=== PATIENT | male | born 1955 | race Caucasian/White ===

== ENCOUNTER 2024-03-02 09:08 | Inpatient (IN) | payer MEDICARE, SELFPAY ==
[2024-03-02] VITALS (39 sets, daily range): BP systolic 102–205; BP diastolic 70–140; BMI 39.1; BMI 36.1
[2024-03-02 00:36] LABS: % Basophils 1.2 % (0-2); % Eosinophils 3.4 % (0-6); % Immature Granulocytes 0.3 % (0-0.5); % Lymphocytes 37.5 % (20.5-51.1); % Monocytes 8.4 % (1.7-9.3); % Neutrophils 49.2 % (42.2-75.2); Absolute Basophils 0.1 10^3/uL (0-0.2); Absolute Eosinophils 0.3 10^3/uL (0-0.7); Absolute Lymphocytes 2.9 10^3/uL (1.2-3.4); Absolute Monocytes 0.6 10^3/uL (0.1-0.6); Absolute Neutrophils 3.8 10^3/uL (1.4-6.5); Hematocrit 45.6 % (39.0-52.0); Hemoglobin 15.8 g/dL (13.0-18.0); Mean Corp Hgb Conc. 34.6 g/dL (33.0-37.0); Mean Corpuscular Hgb 31.7 pg (27.0-31.0); Mean Corpuscular Volume 91.4 fL (80.0-94.0); Mean Platelet Volume 9.8 fL (7.4-10.4); Nucleated Red Blood Cells % 0 % (-); Platelet Count 175 10^3/uL (130-400); Red Blood Cell Count 4.99 10^6/uL (4.70-6.10); Red Cell Dist. Width 12.9 % (11.5-14.5); White Blood Cell Count 7.6 10^3/uL (4.8-10.8)
[2024-03-02] MEDS: ADENOCARD 6 MG IV ×2 (00:49)
[2024-03-02 00:51] LABS: ALT (SGPT) 21 U/L (0-50); AST (SGOT) 24 U/L (17-59); Albumin 4.6 g/dl (3.5-5.0); Alkaline Phosphatase 92 U/L (38-126); Blood Urea Nitrogen 20 mg/dl (9-20); Calcium 9.4 mg/dl (8.4-10.2); Carbon Dioxide 24 mmol/L (22-30); Chloride 104 mmol/L (98-107); Glucose 112 mg/dl (70-99); Potassium 4.2 mmol/L (3.5-5.1); Sodium 139 mmol/L (135-145); Total Bilirubin 0.5 mg/dl (0.2-1.3); Total Protein 6.8 g/dl (6.3-8.2); eGFR > 60.00
[2024-03-02] MEDS: CARDIZEM 20 MG IV (00:51)
[2024-03-02 01:02] LABS: Troponin I < 0.012 ng/ml
--- NOTE | 2024-03-02 01:07 | ED.GENMED ---
History of Present Illness
General
Chief Complaint: Cardiac Symptoms
Source: patient and spouse
Exam Limitations: none
Time Seen by Provider: 03/02/24 00:10
Nursing documentation reviewed up to this point in time: agreed with
History of Present Illness
History of Present Illness:
This is a 69-year-old gentleman (he prefers first name Carrington) who has history of hypertension, hyperlipidemia, impaired fasting glucose, low testosterone, BPH who notes intermittent episodes of tachycardia, palpitations that occur sporadically over
the past several years. No definitive insightful nor relieving factors and palpitations occur sporadically, randomly over a number of years and generally resolves within a few minutes to no longer than 30 minutes and generally without associated
symptoms.
Reports undergoing unremarkable Holter monitor and unremarkable echocardiogram last year, ordered by his PCP.
Episodes of tachycardia have become more frequent over the past few months thus he scheduled an initial appointment with cardiology, Dr. Frank which is scheduled for March 30.
Tonight he got up out of bed around 11 PM to go to the bathroom and upon returning to bed he admits to not feeling well, feeling palpitations and feeling somewhat restless. Palpitations persisted and have been accompanied with mild shortness of
breath, very mild intermittent chest pressure which is new for him. Palpitations persisted and seem more pronounced than previous thus he was driven to the ED by his for further evaluation.
Currently denies chest pain or shortness of breath, he denies diaphoresis, denies dizziness nor lightheadedness.
No recent travel, he denies leg pain or swelling.
His daily medications include atenolol, lisinopril, amlodipine, atorvastatin, tamsulosin, testosterone gel.
He admits to rare alcohol use but none recently. No drug use nor decongestant use.
Past History
Past History
ED Past Medical History: HTN, Hypercholesterolemia, NIDDM and Other (Low testosterone, BPH)
ED Past Surgical History: Orthopedic (Cervical disc) and Other (Umbilical hernia repair)
Social History
Tobacco: Non-smoker
Alcohol: Occasional
Drug: None
Personal:
Living: with family
Employment: Employed
Family History
Family History: Other (Noncontributory)
Phy Exam
Physical Exam
Physical Exam:
GENERAL: 69-year-old obese gentleman appears his stated age, bright and alert, pleasant and easily communicative, appears in no acute distress. is accompanying.
EYE: anicteric
NECK: Supple, nontender, no meningismus, no significant adenopathy. No JVD.
ENT: oral mucosa is moist. No rhinorrhea.
CARDIAC: Regular/tachycardic at 160, no murmur.
LUNGS: Clear breath sounds bilaterally, no acute respiratory distress, no wheezes/rales/rhonchi
ABDOMEN: Rotund, soft, nondistended, without focal tenderness, normoactive BS.
NEUROLOGICAL: Alert and oriented x3, no focal neuro deficits.
SKIN: Warm and dry, normal color, skin intact. No rash.
MUSCULOSKELETAL: No C/C/E. peripheral pulses are full and equal b/l. No palpable tenderness.
PSYCH: Normal and appropriate interaction.
Course
Orders/Labs/Results
Orders:
Orders
03/02/24 00:13
Electrocardiogram (*1) Urgent
Reason for Study: Chest Pain
Cardiac Monitoring- Treatment ONCE
EKG- Treatment ONCE
03/02/24 00:21
Adenosine [Adenocard] 12 mg .ROUTE .STK-MED ONE
03/02/24 00:22
Adenosine [Adenocard] 6 mg .ROUTE .STK-MED ONE
03/02/24 00:29
Diltiazem 125 mg/125 ml Nss [Cardizem] 125 mg in 125 ml .ROUTE .STK-MED
Diltiazem HCl [Cardizem] 25 mg .ROUTE .STK-MED ONE
03/02/24 00:30
Complete Blood Count/With Diff Urgent
Comprehensive Metabolic Panel Urgent
TSH Reflex To Free T4 Urgent
Comment: ADDED
Troponin I Urgent
03/02/24 00:34
Add On- LAB Urgent
Tests Added?: TSH w reflex to free T-4
03/02/24 00:35
Adenosine [Adenocard] 6 mg IV NOW STA
Adenosine [Adenocard] 6 mg IV NOW STA
Diltiazem 125 mg/125 ml Nss [Cardizem] 125 mg in 125 ml IV NOW
Initial dose in mg/hr, then titrate:: 10
Titrate to keep:: Heart rate 80-100 bpm
Titrate by mg/hr:: 5 mg/hr
Frequency of titrations (minutes):: 15
Maximum dose in mg/hr:: 15
Diltiazem HCl [Cardizem] 20 mg IV NOW STA
03/02/24 00:36
EKG [Electrocardiogram (*1)] Urgent
Reason for Study: Tachycardia
EKG- Treatment ONCE
03/02/24 01:25
Aspirin Chewable [Low Strength Aspirin] 324 mg PO NOW STA
03/02/24 02:31
Troponin I Urgent
03/02/24 04:29
Troponin I Urgent
Abnormal Lab Results
03/02/24 03/02/24 03/02/24
00:30 02:31 04:29
MCH 31.7 H pg
(27.0-31.0)
Glucose 112 H mg/dl
(70-99)
Troponin I 1.420 H* D ng/ml 3.940 H* D ng/ml
03/02/24 00:30
03/02/24 00:30
Vital Signs
Initial and Last Documented VS:
Initial Vital Signs
Temp Pulse Resp BP Pulse Ox
97.8 F 168 24 154/103 94
03/02/24 00:11 03/02/24 00:11 03/02/24 00:11 03/02/24 00:11 03/02/24 00:11
Last Documented Vital Signs
Temp Pulse Resp BP Pulse Ox
97.8 F 52 15 143/84 92
03/02/24 00:11 03/02/24 06:20 03/02/24 03:15 03/02/24 03:15 03/02/24 03:15
MDM/Problems Addressed
Differential Diagnosis Includes:
Patient presents with palpitations found to be in a tachycardic rhythm regular in nature appears SVT. Other consideration is A-fib with RVR.
Initial EKG shows SVT at [address] elevation inferiorly with depression laterally concerning for STEMI however patient denies chest pain and overall well in appearance.
He is hemodynamically stable, mildly hypertensive.
Urgent heart rate control initiated with an IV bolus of Identicard 6 mg which was successful in temporarily breaking SVT to brief sinus rhythm but then SVT recurred and additional dose of Adenocard with similar results.
With second dose of Adenocard, heart rate briefly slowed and no definitive P waves thus concern for an element of atrial fibrillation.
Patient remains hemodynamically stable thus at this point no indication for urgent/emergent electrical cardioversion and instead plan for IV Cardizem bolus and drip.
After 20 mg of IV Cardizem patient has spontaneously converted to normal sinus rhythm and remains in normal sinus rhythm.
He remains hemodynamically stable and continues to deny chest pain nor shortness of breath.
Repeat EKG shows normal sinus rhythm at 70, first-degree AV block, normal axis, flipped T wave in lead III otherwise unremarkable. Previous ischemic changes have all resolved with normalization of heart rate.
With history of hypertension, hyperlipidemia, borderline diabetes patient is certainly at risk for ACS and concern for rate related ischemia.
Labs are pending including troponin.
Will continue monitor technician.
Chronic conditions affecting care: DM, HTN and Other (Hyperlipidemia)
*Pulse Oximetry
Patient hypoxic: no
*EKG
Interpreted by ED Provider?: Yes
Interpretation: abnormal
Comparison EKG: no comparison EKG present
Rate: tachycardiac
Rhythm: SVT
[place]: normal axis
QRS Pattern: normal QRS
Ischemia: ST elevation (Mild ST elevation in lead III with ST depression in 1 and aVL concerning for STEMI)
*Breaking Machine Operator Interpretation
Rate: tachycardiac
Interpretation: abnormal
Rhythm: SVT
*Critical Care Note
Total Time (30-74mins, 75-104mins- exclusive of procedures): 40
comment:
Critical care statement: A total of 40 minutes of critical care time was provided for this patient. This includes management of unstable vital signs, evaluation of the patient at bedside, reviewing the patient's pertinent medical records, discussion
with consultants, review of old EKGs and review of pertinent medical records. This time with separate from time utilized to perform the aforementioned documented procedures
Update Note
Update Note:
03/02/2024 0632 AM
Patient remains in normal sinus rhythm, remains asymptomatic.
Troponin however continues to trend up initially less than 0.012, 1.420, 3.940. Consistent with non-STEMI.
Case discussed with cardiology who will evaluate at bedside this a.m.
ED Attending Note
-
Portions of this chart may have been created with voice recognition software.� Occasional wrong word or��sound alike� substitutions may have occurred due to the inherent limitations of voice recognition software.
Discharge Plan
Departure
Prescriptions:
No Action
Flomax
1 tab PO DAILY
Norvasc
1 tab PO DAILY
atenolol
1 tab PO DAILY
atorvastatin
1 tab PO HS
lisinopril
1 tab PO DAILY
testosterone gel
Interventions
Interventions:
*Risk Screen - Suicide Last Done: 03/02/24 00:11
*Neglect/Abuse Screening Last Done: 03/02/24 00:11
ED- Fall Risk Assessment Last Done: 03/02/24 00:53
ED- Pulmonary Assessment Last Done: 03/02/24 00:53
ED- Cardiac Assessment Last Done: 03/02/24 00:53
Discharge Date and Time
Print Language: YI
[2024-03-02 01:21] LABS: TSH Reflex To Free T4 1.78 uIU/ml (0.47-4.68)
[2024-03-02] MEDS: LOW STRENGTH ASPIRIN 324 MG PO (01:46)
--- NOTE | 2024-03-02 07:27 | CON.CAR ---
Addendum entered and electronically signed by Suleiman Rehman MD 03/02/24 09:29:
I saw and examined the patient.
The Linen Grader's note was reviewed and I agree with the note.
Comment:
GEN: No distress, awake, Ox3
HEENT: supple, anicteric, mmm
LUNGS: CTA, no wheezes/rales
CV: Reg, S1/S2, 1/6 syst LSB, no gallop
ABD: soft, BS+, NT/ND
EXT: No edema
NEURO: Gross non-focal
SKIN: No rash
Plan:
He has a past medical history of hypertension and hyperlipidemia who presents with palpitations and rapid supraventricular tachycardia. He was given adenosine and then diltiazem and ultimately converted back into spontaneous rhythm. He denies any
overt chest pains. Cardiac troponins have increased and are now at 3.9. He currently is pain-free.
EKG while in SVT suggest possible AVNRT with marked ST abnormalities.
Continue aspirin, add IV heparin. Will check echocardiogram.
I had a lengthy discussion with him and with troponin of 3.9 would recommend proceeding with cardiac catheterization.
Check lipids. Will start metoprolol 25mg po bid.
Original Note:
Consultation
Consultation Request
Date/Time Consultation Requested: 03/02/24
Date/Time Consultation Performed: 03/02/24
Requesting Provider: Dr. Capellan in the ER
Performing Provider: Dr. Rehman
Reason for Consultation: Palpitations, abnormal ECG, elevated Troponin
Medical History
-
History of Present Illness:
Patient came to [facility] with palpitations and cardiology is consulted for SVT and elevated Troponin. Patient reports palpitations on and off for more than a year. Palpitations generally once a month and last for a few minutes. No known provocative or
palliative factors. Echo and Holter monitor 12/2022 reviewed above. Patient got up from bed to urinate last night and felt the palpitations feeling in his chest, but palpitations were more intense and did not resolve in a few minutes so patient came
to [facility] and initial ECG reviewed by me showed nonspecific ST changes, patient also in SVT with HR of 164 bpm. Patient was given adenosine 6 mg IV x1 without change and then given a second dose of adenosine 6 mg IV x1 with slowing of HR and
reportedly no underlying P waves and HR increased as adenosine faded. Patient then given Cardizem 20 mg IV x1 and patient spontaneously converted to SR. No chest pain. Initial Troponin was undetectable and then up to 1.42 and then 3.94. Patient with
fatigue and SEQUEIRA recently, but no chest pain.
PMH:
HTN
Hyperlipidemia
Past Medical History
Past Medical History: Other (in HPI)
Past Surgical History: Orthopedic (cervical spine fusion) and Other (hernia repair)
Social History
Tobacco: Non-Smoker
Alcohol: Occasional
Drug: None
Personal:
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
Family History
Family History: Diabetes and Hypertension
Allergies / Home Medications
Allergy/AdvReac Type Severity Reaction Status Date / Time
No Known Allergies Allergy Verified 03/02/24 00:13
�Medication �Instructions �Recorded �Confirmed �Type
Flomax 1 tab PO DAILY 03/02/24 History
Norvasc 1 tab PO DAILY 03/02/24 History
atenolol 1 tab PO DAILY 03/02/24 History
atorvastatin 1 tab PO HS 03/02/24 History
lisinopril 1 tab PO DAILY 03/02/24 History
testosterone 03/02/24 History
Review of Systems
-
History Source: Patient and Family ( by phone)
All other systems: Negative unless noted
Physical Exam
Vital Signs
Temp Pulse Resp BP Pulse Ox
97.8 F 62 16 153/89 93
03/02/24 00:11 03/02/24 07:00 03/02/24 07:00 03/02/24 07:00 03/02/24 03:30
GEN: NAD. AAOx3
HEENT: EOMI, MMM
LUNGS: CTA B/L, no wheezes or rales
CV: Reg, S1/S2, no murmur
ABD: soft, BS+, NT, ND
EXT: No clubbing, cyanosis, lesions or edema B/L
NEURO: Gross non-focal
SKIN: Warm, dry and pink. No rash
Lab Results
03/02/24 00:30
03/02/24 00:30
Troponin I 3.940 ng/ml H* D 03/02/24 04:29
Impression / Plan
-
PCP: Dr. Cecille aCnales at [facility]
Cardiology: scheduled to see Dr. Frank as a new patient 03/31/24
Impression:
Palpitations
SVT, possibly Afib with RVR
NSTEMI, Troponin 3.9 and trending
Abnormal ECG
HTN
Hyperlipidemia
BPH
Hyperglycemia
Holter monitor 12/25/22: Less than 1% burden PACs/PVCs, no arrhythmia
Echo 12/25/22: EF 55%, no significant valve disease
Plan:
-Patient came to [facility] with palpitations and cardiology is consulted for SVT and elevated Troponin. Patient reports palpitations on and off for more than a year. Palpitations generally once a month and last for a few minutes. No known provocative or
palliative factors. Echo and Holter monitor 12/2022 reviewed above. Patient got up from bed to urinate last night and felt the palpitations feeling in his chest, but palpitations were more intense and did not resolve in a few minutes so patient came
to [facility] and initial ECG reviewed by me showed nonspecific ST changes, patient also in SVT with HR of 164 bpm. Patient was given adenosine 6 mg IV x1 without change and then given a second dose of adenosine 6 mg IV x1 with slowing of HR and
reportedly no underlying P waves and HR increased as adenosine faded. Patient then given Cardizem 20 mg IV x1 and patient spontaneously converted to SR. No chest pain. Initial Troponin was undetectable and then up to 1.42 and then 3.94. Patient with
fatigue and SEQUEIRA recently, but no chest pain.
-Chest pain free. Troponin up to 3.94 and will manage as a NSTEMI for now.
-Start Heparin gtt
-ASA 324 mg given in ER earlier this morning
-Serial Troponin
-Check CVE
-Increase outpatient dose of atorvastatin to 40 mg daily
-Changed outpatient dose of atenolol 25 mg daily to Lopressor 25 mg BID
-Check HgbA1c, no h/o DM
-SVT likely Afib with RVR. Spontaneously converted tp SR after adenosine 6 mg IV x2 and then Cardizem 20 mg IV x1. Remains in SR on tele review by me. Cont Lopressor. Reviewed future options for rate and rhythm control.
-Reviewed need for OAC given CHADS Vasc of 2 (might be 3 if HgbA1c comes back high). Heparin gtt for now and then will check on costs of Eliquis vs Xarelto.
--- NOTE | 2024-03-02 08:47 | W.CHA2DS2VAS ---
[id number] Score
Score
Age in Years (65=0, 65-74=1, >/=75=2): 65-74
Sex (Female=+1): Male
Congestive Heart Failure History (Yes=+1): No
Hypertension History (Yes=+1): Yes
Stroke/TIA/Thromboembolism History (Yes=+2): No
Vascular Disease History (Yes=+1): No
Diabetes Mellitus (Yes=+1): No
Score >/=2 is otherwise an anticoagulation candidate: 2
[2024-03-02 08:53] LABS: APTT 29.6 Sec (23.4-35.0)
[2024-03-02 09:18] LABS: HDL Cholesterol 46 mg/dl; LDL Cholesterol, Calculated 71 mg/dl; Total Cholesterol 178 mg/dl (50-199); Triglyceride 305 mg/dl (10-149); Very Low Density Lipoprotein 61 mg/dl (0-30)
[2024-03-02] MEDS: HEPARIN 25000 UNITS/250 ML IV ×2 (09:33→22:12)
[2024-03-02 10:23] LABS: Glycohemoglobin (HgbA1c) 5.9 % (4.0-5.6)
--- NOTE | 2024-03-02 11:14 | CM ---
Reviewed chart. Met with Mr. Dang to review discharge plans. He states prior to admission he resides with his spouse and 91 year old mother in law in a two story home with two steps to enter. He states his [id number] has memory problems. He
states he has a full flight of steps to get to bedroom/full bathroom. He states he has a powder room on the first floor. He states prior to admission he was independent with ambulation and adls. He states he does not have any DME in the home. He
states he has a prescription plan and uses [facility]. Medical work-up in progress. The discharge plan is to return home with his spouse and mother-in -law when medically stable.
[2024-03-02] MEDS: ZESTRIL 20 MG PO (11:36)
[2024-03-02] MEDS: NORVASC 2.5 MG PO (11:37)
[2024-03-02] MEDS: LOPRESSOR 25 MG PO ×2 (11:37→19:37)
[2024-03-02] MEDS: TYLENOL 650 MG PO ×2 (13:15→22:11)
[2024-03-02] MEDS: APRESOLINE 5 MG IV (13:16)
--- NOTE | 2024-03-02 13:35 | PTCARENOTE ---
Rec'd pt from ED. Pt in NSR with elevated BP, AAO*3, and VSS. First time order of lisinipril, norvasc, and metoprolol given. Pt denies any pain or discomfort. Rec'd pt with heparin gtt infusing at 1500 units per hour. Pt maintained pt as NPO
for upcoming cath procedure. Pt educated and verbalized understanding of care plan.
At 1305 pt reported headache rating pain at a 3/10 with elevated bp at 172/105. CAPSULE MACHINE OPERATOR Karen Darden notified. Order Rec'd for 5mg of hydralazine IV. Pt resting in bed with call fernandez in reach. Plan of care ongoing.
--- NOTE | 2024-03-02 14:26 | W.PN.UPDATE ---
Update Note
Progress Note Update
Updated patient and in the room. Reviewed echo and Troponin results. Gave patient's a paper copy of echo report with Troponin levels written down as well. Patient is agreeable to cardiac cath today. Remains pain free on Heparin gtt.
Received aspirin in the ER. Patient missed his usual doses of amlodipine 2.5 mg daily, lisinopril 20 mg daily and atenolol 25 mg daily this morning because he was in the ER. Changed atenolol to Lopressor 25 mg BID with a NOW dose and also ordered
NOW doses of his other meds. BP remained high so hydralazine 5 mg IV x1 given. If BP remains high would increase amlodipine. HR 52.
--- NOTE | 2024-03-02 16:32 | CONSULT.CT ---
Addendum entered and electronically signed by Ene Jara PA-C 03/03/24 06:58:
Assessment:
Now with newly diagnosed:
SVT with converstion to SR
NSTEMI (peak Troponin of 5.12)
LM MV CAD
Original Note:
Consultation
-
Date/Time Consultation Requested: 03/02/24
Date/Time Consultation Performed: 03/02/24 1630
Requesting Provider: Dr. Christina Valle MD.
Performing Provider: Ene Jara PA-C
Reason for Consultation: Evaluation for coronary artery revascularization
Patient History
Physicians
Family Physician: Dr. Cecille Canales MD. [facility]
Outpatient Airport Screener: Dr. Tee Frank MD. (new patient, apt. for 03/31/24)
Inpatient Airport Screener: [facility] Cardiology, Maik Rehman MD.
History of Present Illness
Patient is an extremely pleasant 69-year-old male with a PMH significant for HTN, HLD, and palpitations/arrhythmias. Patient has been experiencing intermittent palpitations and lightheadedness for roughly the past year. Patient states
that they would always self terminate or improve with rest.
Last evening the patient began experiencing palpitations that were more severe compared to previous ones and continued to progress despite rest. Given the severity of the symptoms he sought medical attention at [facility]'s emergency
department. Further workup in the emergency department with EKG revealed SVT (164) with inferior wall ST segment elevation. Lab work ruled the patient in for a non-STEMI with peak troponins of 5.12. Cardiology was consulted.
Patient was given multiple injections of adenosine 6 mg IV, as well as Cardizem 20 mg IV x 1. Patient successfully converted to sinus rhythm. He was admitted for further workup, and given his NSTEMI cardiology proceeded with further workup via
catheterization.
Subsequent cardiac catheterization revealed left main multivessel CAD. Please see Dr. Valle's dictation for complete details summary is as follows: RCA shows a chronic BREAD WRAPPER with L -> collaterals. There is distal left main disease affecting the
ostial left circumflex, ramus intermedius, and LAD.
CT surgery was consulted for coronary artery revascularization.
TTE: 03/02/24 Sherie
EF: 60-65%
MV: normal
AV: normal
TV: normal
PV: trace ND
LVSD: 39
LVDD: 57
PAP's: Unable to determine
Cardiac Cath: 03/02/24 Valle:
LM: 50% distal stenosis
LAD: ostial/prox 85%
RI: 50% ostial
LCx: ostial 80%
RCA: 100% BREAD WRAPPER with L -> R collaterals
Past Medical History
Past Medical History: Other
HTN/HLD
History of palpitations/arrhythmias
BPH
History of uro-lift 2021
History of cervical spine fusion 2003
History of umbilical hernia repair 1999
Past Surgical History
Past Surgical History: Other
Uro-lift 2021 Dr. Burks
Cervical spine fusion 2003
Umbilical hernia repair 1999
Dental History
Noncontributory
Family History
Mother: at Age (96) and Cause of (Complications with CHF)
Father: at Age (84) and Cause of (Complications with hypertension and kidney disease)
Social History
Alcohol: None (2-7d/wk)
Drug: None
Tobacco: Non-Smoker
Personal:
Living: With Spouse (Has 2 children)
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
Allergies
Allergy/AdvReac Type Severity Reaction Status Date / Time
No Known Allergies Allergy Verified 03/02/24 00:13
Home Medications
�Medication �Instructions �Recorded �Confirmed �Type
amlodipine 2.5 mg tablet 2.5 mg PO DAILY 03/02/24 03/02/24 History
atenolol 25 mg tablet 25 mg PO DAILY 03/02/24 03/02/24 History
atorvastatin 20 mg tablet 20 mg PO HS 03/02/24 03/02/24 History
lisinopril 20 mg tablet 20 mg PO DAILY 03/02/24 03/02/24 History
tamsulosin 0.4 mg capsule 0.4 mg PO HS 03/02/24 03/02/24 History
testosterone 2 pump topical DAILY 03/02/24 03/02/24 History
Review of Systems
-
History Source: Patient
General: Denies Fever, Weight Gain, Weight Loss, Fatigue or Night Sweats
HEENT: Denies Visual Changes, Dysphagia, Hoarseness or Sore Throat
Respiratory: Denies SOB, SEQUEIRA, Cough, Asthma or PND
Cardiac: Reports Palpitations; Denies Chest Pain, CAD, Known Vascular Disease, Nausea, Vomiting, Diaphoresis or Edema
Abdomen/GI: Denies Abdominal Pain, Reflux, Indigestion, Nausea, Vomiting, BRBPR or Ulcers
: Denies Dysuria, Frequency, Incontinence or Hematuria
Musculoskeletal: Denies Myalgias, Arthralgias, Joint Pain or Edema
Skin: Denies Itching or Rash
Neurological: Reports Dizzy; Denies CVA, TIA, Headaches, Weakness or Seizures
Vascular: Denies Claudication
Physical Exam
Vital Signs
Temp 97.9 F 03/02/24 10:36
Temp route: Oral 03/02/24 10:36
Pulse 61 03/02/24 14:30
Rhythm: Normal sinus rhythm 03/02/24 12:36
Resp Rate 20 03/02/24 10:36
Blood pressure 175/92 03/02/24 13:39
Blood pressure extremity used: Left upper arm 03/02/24 10:36
Position: Sitting 03/02/24 10:36
MAP (cuff-Cheo Monitor) 117 03/02/24 13:39
SaO2 97 03/02/24 12:50
Oxygen Mode of Delivery Room air 03/02/24 12:50
Acceptable pain level during hospitalization? 0 03/02/24 00:11
Can the patient verbally communicate their pain? Yes 03/02/24 14:15
Pain scale ratin 03/02/24 14:15
Actual Weight 244 lb 7.882 oz 03/02/24 10:39
Body Mass Index (BMI) 36.1 03/02/24 10:39
Labs
03/02/24 00:30
03/02/24 00:30
APTT 29.6 Sec (23.4-35.0) 03/02/24 08:21
Hemoglobin A1c 5.9 % (4.0-5.6) H 03/02/24 00:30
Troponin I 3.690 ng/ml H* D 03/02/24 15:19
Diagnostic Studies
TTE: 03/02/24 Sherie
EF: 60-65%
MV: normal
AV: normal
TV: normal
PV: trace ND
LVSD: 39
LVDD: 57
PAP's: Unable to determine
EKG 03/02/24:
SVT, ACUTE MA/NSTEMI (164)
EKG 03/02/24:
SR 1AVB (69)
Cardiac Cath: 03/02/24 Valle:
LM: 50% distal stenosis
LAD: ostial/prox 85%
RI: 50% ostial
LCx: ostial 80%
RCA: 100% BREAD WRAPPER with L -> R collaterals
Exam
General: Well Developed, Well Nourished and No Apparent Distress
HEENT: Normocephalic, Moist Mucous Membranes, Atraumatic, PERRLA and EOMI
Neck: Trachea Midline; Negative Carotid Bruit
Respiratory: Clear; Negative Wheezes, Crackles, Rhonchi or Accessory Muscle Use
Cardiac: S1/S2 and Regular Rhythm; Negative Murmur, Rub or Gallop
GI: Soft, Non Tender, Non Distended and Normal Bowel Sounds
Rectal: Deferred by Provider
Skin: Warm and Dry; Negative Rash
Neuro: AO x 3, No Motor Deficits and CN X-XII Intact
Extremities: Negative Upper Level Edema, Lower Level Edema, Upper Level Cyanosis, Lower Level Cyanosis, Upper Level Clubbing or Lower Level Clubbing
Psych: Calm
Assessment / Plan
-
Assessment:
69-year-old male with PMH of:
HTN/HLD
History of palpitations/arrhythmias
BPH
History of uro-lift 2021
History of cervical spine fusion 2003
History of umbilical hernia repair 1999
Plan:
Patient's case to be discussed with attending physician.
Routine cardiothoracic surgery preoperative workup will be initiated.
Continue primary management per cardiology.
Continue heparin drip per cardiology.
Further timing for surgical intervention will be decided after attending physicians full review.
--- NOTE | 2024-03-02 16:34 | PTCARENOTE ---
Rec'd pt back from freezer laboratory technician with R radial site and R femoral site. R radial site with external pressure device. Scant drainage with pulses palpable at right radial site. Right femoral artery with CDI with weak but palpable pedal pulses. Pt
instructed on strict bed rest and limb restrictions. Pt resting with call fernandez in reach. at bedside.
--- NOTE | 2024-03-02 16:36 | ITS.CL.CATH ---
Director Of Market Analysis - Catheterization
Cardiac Catheterization
Procedure Report:
LEFT HEART CATHETERIZATION
Date of Procedure: March 02, 2024
Referring: Maik Rehman
PROCEDURES:
1. Left heart catheterization, coronary angiogram.
2. Ultrasound-guided access
INDICATION: NSTEMI
ACCESS: Right radial artery, 6 Occitan sheath, under ultrasound guidance. Given presence of a bovine arch, this access was aborted and 6 Occitan right common femoral arterial access was obtained under ultrasound guidance using a micropuncture kit.
HEMODYNAMICS : (mmHg)
AO (s/d) : 112/68
LV (s/d) : 122/12
LVEDP : 21
CORONARY FINDINGS
DOMINANCE: Right
LEFT MAIN: The left main artery is a large-caliber vessel which gives rise to the left anterior descending artery, the ramus intermedius artery and the left circumflex artery. There is at least 50% calcified distal left main stenosis extending into
all 3 of the branch vessels including ostial LAD, ostial ramus intermedius branch and ostial left circumflex artery (Fish 1, 1, 1)
LEFT ANTERIOR DESCENDING: The left anterior descending artery is a large-caliber vessel which gives rise to 2 small to medium caliber diagonal branches as it courses to the anterior interventricular groove and wraps around the apex. There is
heavily calcified ostial to proximal up to 85% stenosis. Robust collaterals to the RCA also noted.
RAMUS INTERMEDIUS: The ramus intermedius artery is a small to medium caliber branching vessel with eccentric 50% ostial stenosis extending into the proximal portion of the upper branch.
CIRCUMFLEX: The left circumflex artery is a medium to large caliber vessel which gives rise to 1 large caliber branching obtuse marginal branch. There is a eccentric, heavily calcified 80% ostial stenosis.
RIGHT CORONARY ARTERY: The right coronary artery is heavily calcified with 100% flush ostial RCA occlusion with robust [id number] collaterals filling the distal vessel.
SEDATION: 54 minutes of procedural sedation was utilized. An independent emergency medical tech was present to assist with and help manage the patient's level of consciousness and physiologic status.
RADIATION SUMMARY: Fluoro Time (min): 5.5, Dose (mGy): 722.14, DAP (Gy.cm2) : 54.6
Closure Device:
1. Vascular band over right radial artery, 12 cc of air.
2. 6 Occitan Angio-Seal over the right common femoral artery with successful hemostasis.
CONCLUSIONS
1. Heavily calcified coronary arteries with significant multivessel coronary artery disease.
2. Elevated LVEDP.
RECOMMENDATIONS
1. CT surgery consult for consideration of coronary artery bypass grafting with grafts to LAD, left circumflex/OM, possibly ramus intermedius and distal RCA/RPDA.
2. Continue medical therapy for acute coronary syndrome.
3. Trend EKGs and troponins.
4. Check echocardiogram to assess biventricular function and rule out any significant valvular abnormalities.
5. Aggressive management of cardiovascular risk factors.
6. Eventual referral for outpatient cardiac rehab.
Copy to: Maik Rehman
Christina Valle MD, FACC, [facility]
[2024-03-02] MEDS: LIPITOR 80 MG PO (17:38)
--- NOTE | 2024-03-02 21:49 | PTCARENOTE ---
Pt rec'd at shift change awake,alert with spouse at bedside. Pt's only complaint is of neck pain (recently at chiropractor for stiff neck). heat pack applied per pt request. Pt stated he didn't want Tylenol at that time. Right radial band removed
cleansed with saline, 2x2 drsg applied. Pt aware of radial restrictions. Right femoral DDI, no active bleeding or hematoma present.
[2024-03-02] MEDS: FLOMAX 0.4 MG PO (22:11)
--- NOTE | 2024-03-02 23:18 | PTCARENOTE ---
Pt remains sinus but heart rates in high 30's when asleep.
[2024-03-03] VITALS (14 sets, daily range): BP systolic 104–194; BP diastolic 70–118; BMI 35.9
[2024-03-03] MEDS: APRESOLINE 5 MG IV ×2 (04:45→15:29)
--- NOTE | 2024-03-03 05:02 | PTCARENOTE ---
Pt given Hydralazine for elevated b/p this morning. Pt remains sinus alyson dropping as low as 36 when asleep 50's when awake,
[2024-03-03 05:27] LABS: Hematocrit 45.7 % (39.0-52.0); Hemoglobin 15.8 g/dL (13.0-18.0); Mean Corp Hgb Conc. 34.6 g/dL (33.0-37.0); Mean Corpuscular Hgb 32.2 pg (27.0-31.0); Mean Corpuscular Volume 93.3 fL (80.0-94.0); Mean Platelet Volume 10.1 fL (7.4-10.4); Platelet Count 149 10^3/uL (130-400); White Blood Cell Count 6.6 10^3/uL (4.8-10.8)
[2024-03-03 05:37] LABS: PT 13.2 Sec (11.4-14.6)
[2024-03-03 05:38] LABS: APTT 76.9 Sec (23.4-35.0)
[2024-03-03 05:49] LABS: Blood Urea Nitrogen 18 mg/dl (9-20); Calcium 9.3 mg/dl (8.4-10.2); Carbon Dioxide 21 mmol/L (22-30); Chloride 103 mmol/L (98-107); Estimated Creatinine Clearance 107 ml/min; Glucose 108 mg/dl (70-99); Magnesium 2.2 mg/dl (1.6-2.3); Potassium 4.2 mmol/L (3.5-5.1); Sodium 138 mmol/L (135-145); eGFR > 60.00
--- NOTE | 2024-03-03 06:32 | W.PN.CARDCBS ---
Today's Communication / Plan
-
CABG eval
Optimize medical therapy
Impression / Plan
-
PCP: Dr. Cecille Canales at [facility]
Cardiology: scheduled to see Stacia Monika as a new patient 03/31/24
Impression:
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
PSVT, AVNRT status post adenosine
HTN
Hyperlipidemia
BPH
prediabetes, HBA1C 5.9%
Holter monitor 12/25/22: Less than 1% burden PACs/PVCs, no arrhythmia
Echo 12/25/22: EF 55%, no significant valve disease
Echo 03/02/2024: Technically difficult echo contrast utilized. Normal LV size and systolic function with no regional wall motion abnormalities and mild LVH. LV ejection fraction 60-65% with grade 1 diastolic dysfunction. Trileaflet, mildly
sclerotic aortic valve without stenosis or AI. No TR. No MR. No pericardial effusion. Mildly dilated aortic root at the sinus of Valsalva measuring 3.8 cm
Left heart catheterization 03/02/2024:
LVEDP : 21
CORONARY FINDINGS
DOMINANCE: Right
LEFT MAIN: The left main artery is a large-caliber vessel which gives rise to the left anterior descending artery, the ramus intermedius artery and the left circumflex artery. There is at least 50% calcified distal left main stenosis extending into
all 3 of the branch vessels including ostial LAD, ostial ramus intermedius branch and ostial left circumflex artery (Fish 1, 1, 1)
LEFT ANTERIOR DESCENDING: The left anterior descending artery is a large-caliber vessel which gives rise to 2 small to medium caliber diagonal branches as it courses to the anterior interventricular groove and wraps around the apex. There is
heavily calcified ostial to proximal up to 85% stenosis. Robust collaterals to the RCA also noted.
RAMUS INTERMEDIUS: The ramus intermedius artery is a small to medium caliber branching vessel with eccentric 50% ostial stenosis extending into the proximal portion of the upper branch.
CIRCUMFLEX: The left circumflex artery is a medium to large caliber vessel which gives rise to 1 large caliber branching obtuse marginal branch. There is a eccentric, heavily calcified 80% ostial stenosis.
RIGHT CORONARY ARTERY: The right coronary artery is heavily calcified with 100% flush ostial RCA occlusion with robust [id number] collaterals filling the distal vessel.
Plan:
Presented with palpitations and rapid supraventricular tachycardia status post adenosine with conversion to sinus rhythm, possible AVNRT with marked ST-T wave abnormalities
-Maintaining sinus rhythm
-Continue telemetry monitoring. Continue Lopressor 25 mg twice daily
-TSH wnl
-2D echocardiogram with normal biventricular size and systolic function and mild LVH. No hemodynamically significant valve pathology or pericardial effusion.
Non-STEMI with peak troponin 5.12 found to have multivessel coronary artery disease by cardiac catheterization 03/02/2024
-Chest pain free.
-EKG 03/02/24 after conversion to sinus rhythm: Sinus rhythm with first-degree AV block with resolved ST-T wave changes.
-Continue IV Heparin gtt
-Continue aspirin, beta-alexia and lisinopril
-Uptitrate beta-alexia as able but may be limited due to bradycardia
-Continue high intensity statin continue high intensity statin. On admission patient had been on atorvastatin 20 mg daily. Lipid profile 03/02/2024: Triglycerides 305, total cholesterol 178, LDL 71, HDL 46.
-Eventual addition of SGL T2 inhibitor prior to discharge
-CT surgery consulted awaiting evaluation: Discuss with surgery preoperative initiation of amiodarone for A-fib prophylaxis in preparation for CABG
Uncontrolled hypertension
-Increase amlodipine to 5 mg daily.
-Goal normotension
Prediabetes�goal normoglycemia
-Eventual addition of SGLT2 inhibitor prior to discharge
Progress Note - Shake Backboard Notcher
Subjective
Date of Service: March 03, 2024
Seen and examined. Patient has no chest pain or pressure. No shortness of breath. No palpitations. No headaches. Findings of cardiac catheterization, echocardiogram and presentation reviewed with patient and all questions answered. Awaiting CT
surgery evaluation
Objective
Labs:
03/03/24 04:38
03/03/24 04:38
Labs
Hgb 15.8 g/dL (13.0-18.0) 03/03/24 04:38
Hct 45.7 % (39.0-52.0) 03/03/24 04:38
Plt Count 149 10^3/uL (130-400) 03/03/24 04:38
PT 13.2 Sec (11.4-14.6) 03/03/24 04:38
PT Cancelled 03/03/24 04:38
INR 1.00 03/03/24 04:38
INR Cancelled 03/03/24 04:38
APTT 76.9 Sec (23.4-35.0) H 03/03/24 04:38
Sodium 138 mmol/L (135-145) 03/03/24 04:38
Potassium 4.2 mmol/L (3.5-5.1) 03/03/24 04:38
BUN 18 mg/dl (9-20) 03/03/24 04:38
Creatinine 0.8 mg/dL (0.7-1.3) 03/03/24 04:38
Glucose 108 mg/dl (70-99) H 03/03/24 04:38
Troponins
03/02/24 03/02/24 03/02/24
00:30 02:31 04:29
Troponin I < 0.012 1.420 H* D 3.940 H* D
03/02/24 03/02/24
11:50 15:19
Troponin I 5.120 H* D 3.690 H* D
Vital Signs and I&O:
Vital Signs
Temp Pulse Resp BP Pulse Ox
98.6 F 56 20 194/95 95
03/03/24 04:28 03/03/24 05:00 03/03/24 04:28 03/03/24 04:45 03/03/24 04:28
Vital Signs
Temp Pulse Resp BP Pulse Ox
98.6 F 56 20 194/95 95
03/03/24 04:28 03/03/24 05:00 03/03/24 04:28 03/03/24 04:45 03/03/24 04:28
Intake & Output
02/29/24 03/01/24 03/02/24 03/03/24
06:59 06:59 06:59 06:59
Intake Total 980 / 980
Balance 980 / 980
Physical Exam
Physical Exam
General: No acute distress, AAOX3
Neck: Negative JVD
Heart: Regular, positive S1/S2, No murmur
Lungs: CTA b/l, negative wheezes/rales/rhonchi
Abd: Positive BS, NT/ND, neg rebound/rigidity/guarding
Ext: No edema. Radial cath site intact
Neuro: nonfocal
[2024-03-03] MEDS: LOPRESSOR 25 MG PO ×2 (07:58→19:28)
[2024-03-03] MEDS: NORVASC 5 MG PO ×2 (07:58→19:28)
[2024-03-03] MEDS: LOW STRENGTH ASPIRIN 81 MG PO (07:58)
--- NOTE | 2024-03-03 09:03 | PTCARENOTE ---
Received patient this morning resting in bed, heparin infusing at 1500 units/hr. Patient offers no complaints, dressings dry right wrist and right groin. Patient sent for CT of the chest and carotid ultrasound. BP remains elevated, morning meds
given prior to transferring for testing.
[2024-03-03 10:17] LABS: APTT 87.1 Sec (23.4-35.0)
--- NOTE | 2024-03-03 12:25 | CM ---
Reviewed chart. Met with Mr.. Dang to review discharge plans. He states he us feeling okay. He is waiting to hear about the timing of surgery. Prior to admission he resides with his spouse and 91 year old [id number] in a two story home with
two steps to enter. He has a full flight of steps to get to bedroom /full bathroom. He has a powder room on the first floor. Prior to admission he was independent with ambulation and adls. He does not have any DME in the home. He has a
prescription plan and uses [facility]. Medical work-up in progress. The discharge plan is to return home with his spouse and [id number] when medically stable.
[2024-03-03] MEDS: MIRALAX 17 GRAMS PO (12:36)
--- NOTE | 2024-03-03 13:25 | W.PN.UPDATE ---
Update Note
Progress Note Update
notified by nursing patient had brief episode of SVT while 'dozing.' appeared asymptomatic. for now continue lopressor 25mg BID. was noted to have some bradycardia into 30s overnight. if with recurrent SVT episodes, could consider starting
amiodarone as will be on postoperatively.
--- NOTE | 2024-03-03 13:28 | PTCARENOTE ---
Patient had a burst of SVT with HR in the 150's while sitting in the recliner, HR now sinus in the 60's. Patient was asymptomatic, stated he was falling asleep. Niraj SOTO notified, will continue to monitor.
[2024-03-03] MEDS: HEPARIN 25000 UNITS/250 ML IV (15:08)
--- NOTE | 2024-03-03 15:19 | W.PN.UPDATE ---
Update Note
Progress Note Update
Procedure Type:�Isolated CABG
PERIOPERATIVE OUTCOME ESTIMATE %
Operative Mortality 1.31%
Morbidity & Mortality 6.18%
Stroke 0.579%
Renal Failure 0.774%
Reoperation 2.06%
Prolonged Ventilation 3.49%
Deep Sternal Wound Infection 0.164%
Long Hospital Stay (>14 days) 3.48%
Short Hospital Stay (<6 days)* 45.2%
*higher values reflect a better outcome
Clinical Summary
Planned Surgery: Isolated CABG, Urgent, First cardiovascular surgery
Demographics: 69 year old, White, male, 110kg, 175cm, BMI: 35.9 kg/m�
Insurance/Payor: Medicare
Lab Values: Creatinine: 0.8 mg/dL, Hematocrit: 45.7%, WBC Count: 6.6 10�/�L, Platelet Count: 104453 cells/�L
Substance Abuse: Never smoker
Risk Factors / Comorbidities: Hypertension
Cardiac Status: Ejection Fraction = 60%
Coronary Artery Disease: 3 vessels diseased, Left Main Stenosis >=50%, Proximal LAD Stenosis >=70%, No coronary symptoms
[2024-03-03] MEDS: PACERONE 200 MG PO ×2 (15:25→22:17)
--- NOTE | 2024-03-03 15:30 | W.PN.UPDATE ---
Update Note
Progress Note Update
after drinking a cup of coffee now with more frequent self limiting episodes of SVT in 160s. amiodarone 200mg TID ordered with 1st dose now. BPs elevated, increased norvasc to 5mg BID. continue IV hydralazine PRN. d/w patient and at bedside.
d/w nursing. d/w CT surgery
[2024-03-03] MEDS: FLUSH (NSS) 1 FLUSH IV (15:31)
[2024-03-03] MEDS: LIPITOR 80 MG PO (19:05)
[2024-03-03] MEDS: CARDIZEM 125 IV (19:50)
--- NOTE | 2024-03-03 19:55 | PTCARENOTE ---
Patient continues to have long runs of SVT, given PO amio as ordered at 1600 but still with high rates and BP elevated. Patient frustrated feeling the high rates and not feeling he can tolerate it all night. EKG done, Dr. Jolley notified and came
to see the patient. Medications adjusted by Dr. Becker, patient given dose of PO lopressor. at the bedside now visiting.
--- NOTE | 2024-03-03 21:12 | PTCARENOTE ---
Rec'd pt at change of shift in recliner chair with ht rate elevated to 170 SVT. B/P 104/72. pt and spouse concerned over pts ht rate. O2 at 3 lit n/c placed.pt back to bed. Denies cp but reports feeling a little 'woozy' and fluttering in his chest.
Dr Castelan updated about pts complaints and rhythm. Cardizem gtt started at 5 mg hour with good results over the next hour. B/p remains stable. pt now more sinus in 80's. and son at bedside at this time.
[2024-03-03] MEDS: FLOMAX 0.4 MG PO (22:17)
--- NOTE | 2024-03-03 22:38 | PTCARENOTE ---
Pt remains in sinus 60. Dr Castelan updated on pts rhythm and b/p. Ok given to give Amio due at 2200 but hold mn dose of Lopressor. Son remains at bedside.
[2024-03-03] MEDS: LOPRESSOR PO (23:30)
[2024-03-04] VITALS (10 sets, daily range): BP systolic 104–148; BP diastolic 65–90; BMI 35.2
--- NOTE | 2024-03-04 05:20 | PTCARENOTE ---
Pt has remained in sinus rhythm since 2048. b/p stable. Cardizem gtt continued at 5 mg/hr along with heparin at 1500 units/hr.
OOB at present on R/A for am care.
[2024-03-04 05:29] LABS: Hematocrit 43.1 % (39.0-52.0); Hemoglobin 15.3 g/dL (13.0-18.0); Mean Corp Hgb Conc. 35.5 g/dL (33.0-37.0); Mean Corpuscular Hgb 31.8 pg (27.0-31.0); Mean Corpuscular Volume 89.6 fL (80.0-94.0); Mean Platelet Volume 9.8 fL (7.4-10.4); Platelet Count 162 10^3/uL (130-400); Red Blood Cell Count 4.81 10^6/uL (4.70-6.10); Red Cell Dist. Width 13.2 % (11.5-14.5); White Blood Cell Count 7.2 10^3/uL (4.8-10.8)
[2024-03-04 05:48] LABS: APTT 117.8 Sec (23.4-35.0)
[2024-03-04 05:56] LABS: ALT (SGPT) 20 U/L (0-50); AST (SGOT) 27 U/L (17-59); Albumin 4.4 g/dl (3.5-5.0); Alkaline Phosphatase 58 U/L (38-126); Blood Urea Nitrogen 20 mg/dl (9-20); Calcium 9.7 mg/dl (8.4-10.2); Carbon Dioxide 25 mmol/L (22-30); Chloride 104 mmol/L (98-107); Estimated Creatinine Clearance 85 ml/min; Glucose 120 mg/dl (70-99); Magnesium 2.3 mg/dl (1.6-2.3); Potassium 4.3 mmol/L (3.5-5.1); Sodium 138 mmol/L (135-145); Total Bilirubin 0.7 mg/dl (0.2-1.3); Total Protein 6.5 g/dl (6.3-8.2); eGFR > 60.00
[2024-03-04] MEDS: LOPRESSOR PO ×3 (06:38→16:53)
--- NOTE | 2024-03-04 07:16 | W.PN.CARDCBS ---
Addendum entered and electronically signed by Suleiman Rehman MD 03/04/24 09:23:
I saw and examined the patient.
The Retail Account Manager's note was reviewed and I agree with the note.
Comment:
GEN: No distress, awake, Ox3
HEENT: supple, anicteric, mmm
LUNGS: CTA, no wheezes/rales
CV: Reg, S1/S2, 1/6 syst LSB, no gallop
ABD: soft, BS+, NT/ND
EXT: No edema
NEURO: Gross non-focal
SKIN: No rash
Plan:
No further SVT today. Cont IV cardizem and heparin.
CT Surgery eval today for CABG
Cont Atorvastatin, ASA, Norvasc.
Original Note:
Today's Communication / Plan
-
Cardizem gtt renewed by me, this seems to be what works best for AVNRT
Hold Lopressor as needed for bradycardia in favor of Cardizem
MV CAD on cath and CABG being considered
Heparin gtt renewed by me
Impression / Plan
-
PCP: Dr. Cecille Canales at [facility]
Cardiology: scheduled to see Dr. Frank as a new patient 03/31/24
Impression:
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
HTN
Hyperlipidemia
BPH
prediabetes, HBA1C 5.9%
Holter monitor 12/25/22: Less than 1% burden PACs/PVCs, no arrhythmia
Echo 12/25/22: EF 55%, no significant valve disease
Echo 03/02/2024: Technically difficult echo contrast utilized. Normal LV size and systolic function with no regional wall motion abnormalities and mild LVH. LV ejection fraction 60-65% with grade 1 diastolic dysfunction. Trileaflet, mildly
sclerotic aortic valve without stenosis or AI. No TR. No MR. No pericardial effusion. Mildly dilated aortic root at the sinus of Valsalva measuring 3.8 cm
Plan:
-Patient with NSTEMI this admission. Troponin peaked at 5.12. No recurrence of chest pain. Patient with MV CAD by cath 03/02/[address] surgery evaluation.
-Heparin gtt renewed
-Patient completed testing 03/03/24 that showed less than 50% B/L ICA disease. CT chest 03/03/24 showed a subcentimeter focal opacity in the superior segment of the RLL that is probably peripheral mucoid impaction and endobronchial neoplasm considered
less likely, but cannot be definitively excluded. There is apparent focal ectasia of the left lower lobe pulmonary arterial branch as above. These findings could be further evaluated with follow-up contrast-enhanced CT of the chest in 3-6 months to
evaluate for stability or resolution. CXR without acute disease.
-Echo noted above with EF 60-65% and no significant valve disease
-Patient with palpitations on admission and ECG on 03/02/24 showed SVT. Patient failed to respond to adenosine 6 mg IV x2 doses and ultimately converted with Cardizem 20 mg IV x1. Increasing arrhythmia burden on 03/03/24 that was no responsive to BB
or amiodarone, but was responsive to the addition of Cardizem gtt at 5 mg/hr.
-Cont Cardizem gtt at 5 mg/hr for arrhythmia suppression
-LDL 71 and outpatient dose of atorvastatin increased to 80 mg daily
-Patient with known HTN. Outpatient dose of amlodipine increased to 5 mg BID this admission.
-Outpatient dose of atenolol changed to Lopressor 25 mg q 6 hours this admission, but doses intermittently held to allow for Cardizem gtt which seems to be doing a better job at controlling arrhythmia
-Outpatient dose of lisinopril 20 mg daily is on hold presumably due to planned surgery
HPI: Patient came to [facility] with palpitations and cardiology is consulted for SVT and elevated Troponin. Patient reports palpitations on and off for more than a year. Palpitations generally once a month and last for a few minutes. No known provocative
or palliative factors. Echo and Holter monitor 12/2022 reviewed above. Patient got up from bed to urinate last night and felt the palpitations feeling in his chest, but palpitations were more intense and did not resolve in a few minutes so patient
came to [facility] and initial ECG reviewed by me showed nonspecific ST changes, patient also in SVT with HR of 164 bpm. Patient was given adenosine 6 mg IV x1 without change and then given a second dose of adenosine 6 mg IV x1 with slowing of HR and
reportedly no underlying P waves and HR increased as adenosine faded. Patient then given Cardizem 20 mg IV x1 and patient spontaneously converted to SR. No chest pain. Initial Troponin was undetectable and then up to 1.42 and then 3.94. Patient with
fatigue and SEQUEIRA recently, but no chest pain.
Progress Note - Smart Energy Specialist
Subjective
Date of Service: March 04, 2024
Feels much better with Cardizem gtt
Objective
Labs:
03/04/24 05:05
03/04/24 05:05
Labs
Hgb 15.3 g/dL (13.0-18.0) 03/04/24 05:05
Hct 43.1 % (39.0-52.0) 03/04/24 05:05
Plt Count 162 10^3/uL (130-400) 03/04/24 05:05
PT 13.2 Sec (11.4-14.6) 03/03/24 04:38
PT Cancelled 03/03/24 04:38
INR 1.00 03/03/24 04:38
INR Cancelled 03/03/24 04:38
APTT 117.8 Sec (23.4-35.0) H 03/04/24 05:05
Sodium 138 mmol/L (135-145) 03/04/24 05:05
Potassium 4.3 mmol/L (3.5-5.1) 03/04/24 05:05
BUN 20 mg/dl (9-20) 03/04/24 05:05
Creatinine 1.0 mg/dL (0.7-1.3) 03/04/24 05:05
Glucose 120 mg/dl (70-99) H 03/04/24 05:05
Troponins
03/02/24 03/02/24 03/02/24
00:30 02:31 04:29
Troponin I < 0.012 1.420 H* D 3.940 H* D
03/02/24 03/02/24
11:50 15:19
Troponin I 5.120 H* D 3.690 H* D
Vital Signs and I&O:
Vital Signs
Temp Pulse Resp BP Pulse Ox
98.3 F 61 18 104/66 95
03/04/24 06:50 03/04/24 05:00 03/04/24 06:50 03/04/24 04:00 03/04/24 06:50
Vital Signs
Temp Pulse Resp BP Pulse Ox
98.3 F 61 18 104/66 95
03/04/24 06:50 03/04/24 05:00 03/04/24 06:50 03/04/24 04:00 03/04/24 06:50
Intake & Output
03/02/24 03/03/24 03/04/24 03/05/24
06:59 06:59 06:59 06:59
Intake Total 1100 / 1100 600 / 600
Output Total 150 / 150
Balance 1100 / 1100 450 / 450
Physical Exam
Physical Exam
GEN: NAD. AAOx3
HEENT: MMM
LUNGS: No audible wheeze
CV: SR on tele
ABD: soft, BS+, NT, ND
EXT: Right radial without hematoma or ecchymosis. Right groin without hematoma and minimal ecchymosis. No edema B/L
NEURO: Gross non-focal
SKIN: No rash
[2024-03-04] MEDS: HEPARIN 25000 UNITS/250 ML IV ×2 (07:24→22:12)
--- NOTE | 2024-03-04 08:00 | PTCARENOTE ---
Resumed care of patient. walking rounds completed. OOB in chair at time of assessment. VSS. SR on monitor HR 60s. RA. Cardizem gtt at 5 mghr and hep gtt per protocol. will continue to monitor.
[2024-03-04] MEDS: NORVASC 5 MG PO ×2 (08:28→19:38)
[2024-03-04] MEDS: LOW STRENGTH ASPIRIN 81 MG PO (08:28)
[2024-03-04] MEDS: PACERONE 200 MG PO ×3 (08:28→22:12)
[2024-03-04] MEDS: MIRALAX 17 GRAMS PO (14:49)
[2024-03-04 14:56] LABS: APTT 84.1 Sec (23.4-35.0)
[2024-03-04] MEDS: MUCINEX 600 MG PO (15:21)
[2024-03-04] MEDS: LIPITOR 80 MG PO (16:55)
--- NOTE | 2024-03-04 17:04 | PTCARENOTE ---
all questions answered concerning surgery and pre and post op plans. emotional support provided.
[2024-03-04 21:17] LABS: APTT 87.3 Sec (23.4-35.0)
[2024-03-04] MEDS: FLOMAX 0.4 MG PO (22:12)
[2024-03-04] MEDS: BENADRYL 25 MG PO (22:12)
--- NOTE | 2024-03-04 22:33 | PTCARENOTE ---
Pt rec'd at change of shift oob in recliner chair with spouse at bedside. Pt states he feels great. Sinus on telemetry. At HS pt c/o post nasal drip requesting antihistamine. PA notified Benadryl po ordered and given. heparin therapeutic continued
at 1400 units/hr
[2024-03-05] VITALS (7 sets, daily range): BP systolic 111–135; BP diastolic 74–96; BMI 35.5
--- NOTE | 2024-03-05 04:53 | PTCARENOTE ---
Pt reports having slept well after receiving Benadryl for post nasal drip. Remains in sinus rhythm 50-60's.
[2024-03-05 05:12] LABS: APTT 110.9 Sec (23.4-35.0)
[2024-03-05 05:45] LABS: Amylase 47 U/L (30-110); Blood Urea Nitrogen 22 mg/dl (9-20); Calcium 9.6 mg/dl (8.4-10.2); Carbon Dioxide 23 mmol/L (22-30); Chloride 104 mmol/L (98-107); Estimated Creatinine Clearance 85 ml/min; Glucose 118 mg/dl (70-99); Lipase 176 U/L (23-300); Potassium 4.2 mmol/L (3.5-5.1); Sodium 136 mmol/L (135-145); eGFR > 60.00
[2024-03-05] MEDS: LOPRESSOR PO ×3 (07:16→18:03)
[2024-03-05] MEDS: LOW STRENGTH ASPIRIN 81 MG PO (08:25)
[2024-03-05] MEDS: PACERONE 200 MG PO ×3 (08:25→22:31)
[2024-03-05] MEDS: NORVASC 5 MG PO ×2 (08:26→19:37)
--- NOTE | 2024-03-05 09:21 | W.PN.CARDCBS ---
Today's Communication / Plan
-
Await CT surgery evaluation.
Continue IV Cardizem and IV heparin.
Continue metoprolol and amlodipine.
No further SVT.
Impression / Plan
-
PCP: Dr. Cecille Canales at [facility]
Cardiology: scheduled to see Dr. Frank as a new patient 03/31/24
Impression:
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
HTN
Hyperlipidemia
BPH
prediabetes, HBA1C 5.9%
Holter monitor 12/25/22: Less than 1% burden PACs/PVCs, no arrhythmia
Echo 12/25/22: EF 55%, no significant valve disease
Echo 03/02/2024: Technically difficult echo contrast utilized. Normal LV size and systolic function with no regional wall motion abnormalities and mild LVH. LV ejection fraction 60-65% with grade 1 diastolic dysfunction. Trileaflet, mildly
sclerotic aortic valve without stenosis or AI. No TR. No MR. No pericardial effusion. Mildly dilated aortic root at the sinus of Valsalva measuring 3.8 cm
Plan:
-Patient with NSTEMI this admission. Troponin peaked at 5.12. No recurrence of chest pain. Patient with MV CAD by cath 03/02/[address] surgery evaluation.
-Heparin gtt renewed
-Patient completed testing 03/03/24 that showed less than 50% B/L ICA disease. CT chest 03/03/24 showed a subcentimeter focal opacity in the superior segment of the RLL that is probably peripheral mucoid impaction and endobronchial neoplasm considered
less likely, but cannot be definitively excluded. There is apparent focal ectasia of the left lower lobe pulmonary arterial branch as above. These findings could be further evaluated with follow-up contrast-enhanced CT of the chest in 3-6 months to
evaluate for stability or resolution. CXR without acute disease.
-Echo noted above with EF 60-65% and no significant valve disease
-Patient with palpitations on admission and ECG on 03/02/24 showed SVT. Patient failed to respond to adenosine 6 mg IV x2 doses and ultimately converted with Cardizem 20 mg IV x1. Increasing arrhythmia burden on 03/03/24 that was no responsive to BB
or amiodarone, but was responsive to the addition of Cardizem gtt at 5 mg/hr.
-Cont Cardizem gtt at 5 mg/hr for arrhythmia suppression
-LDL 71 and outpatient dose of atorvastatin increased to 80 mg daily
-Blood pressure currently stable. Continue metoprolol and amlodipine.
-Outpatient dose of lisinopril 20 mg daily is on hold presumably due to planned surgery
HPI: Patient came to [facility] with palpitations and cardiology is consulted for SVT and elevated Troponin. Patient reports palpitations on and off for more than a year. Palpitations generally once a month and last for a few minutes. No known provocative
or palliative factors. Echo and Holter monitor 12/2022 reviewed above. Patient got up from bed to urinate last night and felt the palpitations feeling in his chest, but palpitations were more intense and did not resolve in a few minutes so patient
came to [facility] and initial ECG reviewed by me showed nonspecific ST changes, patient also in SVT with HR of 164 bpm. Patient was given adenosine 6 mg IV x1 without change and then given a second dose of adenosine 6 mg IV x1 with slowing of HR and
reportedly no underlying P waves and HR increased as adenosine faded. Patient then given Cardizem 20 mg IV x1 and patient spontaneously converted to SR. No chest pain. Initial Troponin was undetectable and then up to 1.42 and then 3.94. Patient with
fatigue and SEQUEIRA recently, but no chest pain.
Progress Note - Case Folder
Subjective
Date of Service: March 05, 2024
Feels well. No chest pains or SVT. No palpitations.
Objective
Labs:
03/04/24 05:05
03/05/24 04:46
Labs
Hgb 15.3 g/dL (13.0-18.0) 03/04/24 05:05
Hct 43.1 % (39.0-52.0) 03/04/24 05:05
Plt Count 162 10^3/uL (130-400) 03/04/24 05:05
PT 13.2 Sec (11.4-14.6) 03/03/24 04:38
PT Cancelled 03/03/24 04:38
INR 1.00 03/03/24 04:38
INR Cancelled 03/03/24 04:38
APTT 110.9 Sec (23.4-35.0) H 03/05/24 04:46
Sodium 136 mmol/L (135-145) 03/05/24 04:46
Potassium 4.2 mmol/L (3.5-5.1) 03/05/24 04:46
BUN 22 mg/dl (9-20) H 03/05/24 04:46
Creatinine 1.0 mg/dL (0.7-1.3) 03/05/24 04:46
Glucose 118 mg/dl (70-99) H 03/05/24 04:46
Troponins
03/02/24 03/02/24
11:50 15:19
Troponin I 5.120 H* D 3.690 H* D
Vital Signs and I&O:
Vital Signs
Temp Pulse Resp BP Pulse Ox
98.3 F 64 20 112/83 94
03/05/24 07:01 03/05/24 07:16 03/05/24 07:01 03/05/24 07:04 03/05/24 07:01
Vital Signs
Temp Pulse Resp BP Pulse Ox
98.3 F 64 20 112/83 94
03/05/24 07:01 03/05/24 07:16 03/05/24 07:01 03/05/24 07:04 03/05/24 07:01
Intake & Output
03/03/24 03/04/24 03/05/24 03/06/24
06:59 06:59 06:59 06:59
Intake Total 1100 / 1100 600 / 600 480 / 480
Output Total 150 / 150
Balance 1100 / 1100 450 / 450 480 / 480
Physical Exam
Physical Exam
GEN: No distress, awake, Ox3
HEENT: supple, anicteric, mmm
LUNGS: CTA, no wheezes/rales
CV: Reg, S1/S2, 1/6 syst LSB, no gallop
ABD: soft, BS+, NT/ND
EXT: No edema
NEURO: Gross non-focal
SKIN: No rash
--- NOTE | 2024-03-05 09:22 | PTCARENOTE ---
Pt states that he feels well today, sitting OOB in chair. VSS
--- NOTE | 2024-03-05 11:35 | W.PN.UPDATE ---
Update Note
Progress Note Update
CARDIAC SURGERY ATTENDING:
It was my pleasure to meet with Mr. Chito Dang and his at his bedside today. I have reviewed his presentation, medical history, hospital course, and available imaging. He will benefit from surgical coronary revascularization. I
anticipate coronary artery bypass grafting x 3-4 with ERIK to LAD, greater saphenous vein to OM, greater saphenous vein to PDA, and potential greater saphenous vein to RI (requires intraoperative assessment). I believe he will also benefit from
concurrent encompass maze procedure and exclusion of his left atrial appendage.
We discussed the proposed operative interventions, the associated operative risks (including, but not limited to, , stroke, [place], arrhythmia, PPM requirement, PNA, VANESA/F, infection, and bleeding), the expected in-hospital postprocedural course,
and the expected outpatient recovery. All questions were answered to the best of my abilities. The patient and his would like to proceed on Wednesday. I will make appropriate arrangements.
Thank you for the opportunity to participate in the care of this patient.
Nikhil Vazquez MD
[phone]
[2024-03-05] MEDS: LOPRESSOR 25 MG PO (12:49)
[2024-03-05] MEDS: MIRALAX 17 GRAMS PO (14:07)
[2024-03-05] MEDS: MUCINEX 600 MG PO (14:07)
[2024-03-05] MEDS: CARDIZEM 125 IV (15:40)
[2024-03-05] MEDS: HEPARIN 25000 UNITS/250 ML IV (16:16)
[2024-03-05] MEDS: LIPITOR 80 MG PO (18:03)
--- NOTE | 2024-03-05 18:23 | PTCARENOTE ---
6pm dose of Metoprolol 25 mg PO not given due to hold parameters for HR <65. HR 57 sinus alyson on monitor.
--- NOTE | 2024-03-05 20:12 | PTCARENOTE ---
Pt. received at change of shift. Pt. seen and assessed in room. Pt. AOx3 VS WNL. Tele reading sinus alyson/NSR. No complaints of pain at this time. Sitting comfortably in alessia at the moment. RN verbalizes plan of care to pt. pt. verbalizes
understanding back to RN. Call fernandez within reach. Continuing to monitor at this time.
[2024-03-05] MEDS: BENADRYL 25 MG PO (22:30)
[2024-03-05] MEDS: FLOMAX 0.4 MG PO (22:30)
--- NOTE | 2024-03-05 23:18 | PTCARENOTE ---
Tele alarm for HR in the 30s. Pt. assessed immediately, pt. stating he was in a 'deep sleep and dreaming'. Pt. reports no symptoms. BP retaken 128/80. Midnight lopressor HELD. Tele strip in chart. Continuing to monitor pt at this time.
[2024-03-06] MEDS: LOPRESSOR PO ×4 (00:25→17:34)
[2024-03-06 04:22] VITALS: BP 127/77
[2024-03-06 04:44] LABS: Hematocrit 43.6 % (39.0-52.0); Hemoglobin 15.4 g/dL (13.0-18.0); Mean Corp Hgb Conc. 35.3 g/dL (33.0-37.0); Mean Corpuscular Hgb 32.8 pg (27.0-31.0); Mean Platelet Volume 9.9 fL (7.4-10.4); Platelet Count 154 10^3/uL (130-400); Red Blood Cell Count 4.69 10^6/uL (4.70-6.10); Red Cell Dist. Width 13.2 % (11.5-14.5); White Blood Cell Count 6.5 10^3/uL (4.8-10.8)
[2024-03-06 05:07] LABS: Blood Urea Nitrogen 20 mg/dl (9-20); Calcium 9.5 mg/dl (8.4-10.2); Carbon Dioxide 21 mmol/L (22-30); Chloride 105 mmol/L (98-107); Estimated Creatinine Clearance 85 ml/min; Glucose 117 mg/dl (70-99); Potassium 4.5 mmol/L (3.5-5.1); Sodium 138 mmol/L (135-145); eGFR > 60.00
[2024-03-06 05:08] VITALS: BMI 35.4
[2024-03-06 05:11] LABS: APTT 113.7 Sec (23.4-35.0)
[2024-03-06 06:43] VITALS: BP 97/84
[2024-03-06 08:08] VITALS: BP 115/67
[2024-03-06] MEDS: NORVASC 5 MG PO (08:12)
[2024-03-06] MEDS: LOW STRENGTH ASPIRIN 81 MG PO (08:12)
[2024-03-06] MEDS: PACERONE 200 MG PO ×3 (08:12→23:32)
--- NOTE | 2024-03-06 10:22 | W.PN.CARDCBS ---
Addendum entered and electronically signed by Therese Massey MD 03/06/24 12:34:
I saw and examined the patient.
The Broomcorn Seeder's note was reviewed and I agree with the note.
Comment: I Saw the patient he was sitting in the chair. No chest pain overnight and no other complaints. Awaiting CABG.
He has been using incentive spirometry. He will continue.
Heparin renewed. Exam without change. Telemetry reviewed and stable.
Continue risk factor modification.
For SVT continues on diltiazem drip. Renewed.
We will continue to follow-up.
Original Note:
Today's Communication / Plan
-
Heparin gtt and Cardizem gtt renewed
Impression / Plan
-
PCP: Dr. Cecille Canales at [facility]
Cardiology: scheduled to see Dr. Frank as a new patient 03/31/24
Impression:
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
HTN
Hyperlipidemia
BPH
prediabetes, HBA1C 5.9%
Holter monitor 12/25/22: Less than 1% burden PACs/PVCs, no arrhythmia
Echo 12/25/22: EF 55%, no significant valve disease
Echo 03/02/24: Technically difficult echo contrast utilized. Normal LV size and systolic function with no regional wall motion abnormalities and mild LVH. LV ejection fraction 60-65% with grade 1 diastolic dysfunction, trileaflet, mildly sclerotic
aortic valve without stenosis or AI. No TR. No MR. No pericardial effusion. Mildly dilated aortic root at the sinus of Valsalva measuring 3.8 cm
Plan:
-Patient with NSTEMI this admission. Troponin peaked at 5.12. No recurrence of chest pain. Patient with MV CAD by cath 03/02/24 and plan is for CABG, likely 03/08/24.
-Heparin gtt renewed and platelet count stable 154 on 03/06/24
-EF 60-65% by echo 03/02/24
-Carotid u/s 03/03/24 that showed less than 50% B/L ICA disease. CT chest 03/03/24 showed a subcentimeter focal opacity in the superior segment of the RLL that is probably peripheral mucoid impaction and endobronchial neoplasm considered less likely,
but cannot be definitively excluded. There is apparent focal ectasia of the left lower lobe pulmonary arterial branch as above. These findings could be further evaluated with follow-up contrast-enhanced CT of the chest in 3-6 months to evaluate for
stability or resolution. CXR without acute disease.
-Palpitations on admission and ECG on 03/02/24 showed SVT/AVNRT. Patient failed to respond to adenosine 6 mg IV x2 doses and ultimately converted with Cardizem 20 mg IV x1. Increasing arrhythmia burden on 03/03/24 that was not responsive to BB or
amiodarone, but was responsive to the addition of Cardizem gtt at 5 mg/hr. Cardizem gtt renewed for arrhythmia suppression 03/06/24
-LDL 71 and outpatient dose of atorvastatin increased to 80 mg daily
-Outpatient dose of atenolol changed to metoprolol, most doses of metoprolol held due to bradycardia.
-Outpatient dose of amlodipine increased to 5 mg BID.
-Outpatient dose of lisinopril 20 mg daily is on hold presumably due to planned surgery
HPI: Patient came to [facility] with palpitations and cardiology is consulted for SVT and elevated Troponin. Patient reports palpitations on and off for more than a year. Palpitations generally once a month and last for a few minutes. No known provocative
or palliative factors. Echo and Holter monitor 12/2022 reviewed above. Patient got up from bed to urinate last night and felt the palpitations feeling in his chest, but palpitations were more intense and did not resolve in a few minutes so patient
came to [facility] and initial ECG reviewed by me showed nonspecific ST changes, patient also in SVT with HR of 164 bpm. Patient was given adenosine 6 mg IV x1 without change and then given a second dose of adenosine 6 mg IV x1 with slowing of HR and
reportedly no underlying P waves and HR increased as adenosine faded. Patient then given Cardizem 20 mg IV x1 and patient spontaneously converted to SR. No chest pain. Initial Troponin was undetectable and then up to 1.42 and then 3.94. Patient with
fatigue and SEQUEIRA recently, but no chest pain.
Progress Note - Glass Deposition Tender
Subjective
Date of Service: March 06, 2024
He feels well, no chest pain
Objective
Labs:
03/06/24 04:31
03/06/24 04:31
Labs
Hgb 15.4 g/dL (13.0-18.0) 03/06/24 04:31
Hct 43.6 % (39.0-52.0) 03/06/24 04:31
Plt Count 154 10^3/uL (130-400) 03/06/24 04:31
PT 13.2 Sec (11.4-14.6) 03/03/24 04:38
PT Cancelled 03/03/24 04:38
INR 1.00 03/03/24 04:38
INR Cancelled 03/03/24 04:38
APTT 113.7 Sec (23.4-35.0) H 03/06/24 04:31
Sodium 138 mmol/L (135-145) 03/06/24 04:31
Potassium 4.5 mmol/L (3.5-5.1) 03/06/24 04:31
BUN 20 mg/dl (9-20) 03/06/24 04:31
Creatinine 1.0 mg/dL (0.7-1.3) 03/06/24 04:31
Glucose 117 mg/dl (70-99) H 03/06/24 04:31
Vital Signs and I&O:
Vital Signs
Temp Pulse Resp BP Pulse Ox
98.4 F 71 18 115/67 94
03/06/24 06:54 03/06/24 08:08 03/06/24 06:54 03/06/24 08:08 03/06/24 08:45
Vital Signs
Temp Pulse Resp BP Pulse Ox
98.4 F 71 18 115/67 94
03/06/24 06:54 03/06/24 08:08 03/06/24 06:54 03/06/24 08:08 03/06/24 08:45
Intake & Output
03/04/24 03/05/24 03/06/24 03/07/24
06:59 06:59 06:59 06:59
Intake Total 600 / 600 480 / 480 38 / 38
Output Total 150 / 150
Balance 450 / 450 480 / 480 38 / 38
Physical Exam
Physical Exam
GEN: NAD. AAOx3
HEENT: MMM
LUNGS: No audible wheeze
CV: SR on tele
ABD: ND
EXT: No edema B/L
NEURO: Gross non-focal
SKIN: No rash
--- NOTE | 2024-03-06 10:46 | CM ---
Reviewed chart. Met with Mr. Dang to review discharge plans. Prior to admission he resides with his spouse and 91 year old mother -in-law in a two story home with two steps to enter. He has a full flight of steps to get to bedroom/full bathroom.
He has a powder room on the first floor. Prior to admission he was independent with ambulation and adls. He does not have any DME in the home. He has a prescription plan and uses [facility]. He states his spouse works as a N.P and she will
take off to assist in his care when he goes home. Medical work-up in progress. The discharge plan is to return home with his spouse and [id number] with a home visit by the Cardiothoracic Transitiobal Care Nurse when medically stable.
We reviewed pre-op and post-op routines. Briefly reviewed the shower instructions, We also reviewed restrictions indcluding sternal precautions and driving restrictions. We discussed a home visit by the Cardiothoracic Transitional Care Nurse. He
is agreeable to a home vist. The plan is for CABG on March,.
[2024-03-06 10:53] VITALS: BP 116/86
--- NOTE | 2024-03-06 11:29 | PTCARENOTE ---
Pt sitting OOB in chair, offers no complaints. BP low this am 97/84, rechecked 115/67
[2024-03-06 12:18] LABS: APTT 89.4 Sec (23.4-35.0)
[2024-03-06] MEDS: HEPARIN 25000 UNITS/250 ML IV (12:20)
[2024-03-06] MEDS: CARDIZEM 125 IV (12:26)
--- NOTE | 2024-03-06 13:33 | W.PN.UPDATE ---
Update Note
Progress Note Update
Pt seen and exmained
Cath and imaging reviewed
Discussed in detail that Dr Vazquez has covid and will be unavailable this week
I have offered CABG/Maze for tomorrow
Risks, complications reviewed
Pt is waiting to discuss with his .
Likely cabg in am
--- NOTE | 2024-03-06 13:46 | CHAP ---
request relayed to Fr. Lezama, Wednesday on-call agriculture inspector, at the request of MrStacia and Mrs. Dang. Fr. Lezama anticipates arriving mid afternoon today.
--- NOTE | 2024-03-06 14:00 | CHAP ---
Fr. Byron Lezama of [facility] in [place] anointed [place] and gave him Holy Communion. Time uncertain.
[2024-03-06] MEDS: MUCINEX 600 MG PO (16:23)
[2024-03-06] MEDS: MIRALAX 17 GRAMS PO (16:23)
[2024-03-06] MEDS: LIPITOR 80 MG PO (17:34)
[2024-03-06 17:50] LABS: APTT 74.5 Sec (23.4-35.0)
[2024-03-06 18:58] VITALS: BP 131/76
[2024-03-06 23:30] VITALS: BP 132/69
[2024-03-06] MEDS: FLOMAX 0.4 MG PO (23:32)
[2024-03-06] MEDS: LOPRESSOR 25 MG PO (23:33)
[2024-03-06] MEDS: BENADRYL 25 MG PO (23:33)
[2024-03-07] VITALS (16 sets, daily range): BP systolic 83–128; BP diastolic 42–83; BMI 35.1
--- NOTE | 2024-03-07 01:00 | PTCARENOTE ---
Pt. received at change of shift sitting up in chair. VSS, NSR/sinus alyson with first degree AVB on tele with HR 50s-60s. Plan of care discussed with pt. and who both verbalize understanding. Pt clipped and showered for scheduled CVOR in AM.
Heparin gtt infusing at 13ml/hr and Cardizem gtt infusing at 5ml/hr. Pt NPO since midnight. Pt ambulating independently in room without difficulty and can make needs known. Call fernandez within reach.
[2024-03-07] MEDS: PROTONIX 40 MG PO (06:30)
[2024-03-07] MEDS: LOPRESSOR 25 MG PO (06:30)
[2024-03-07] MEDS: LOPRESSOR PO (06:30)
[2024-03-07] MEDS: MAGNESIUM OXIDE 500 MG PO (06:30)
[2024-03-07] MEDS: BACTROBAN 2% OINTMENT 1 APPLIC NASAL ×2 (06:31→20:09)
--- NOTE | 2024-03-07 06:49 | W.CVOR.SURPR ---
CVOR Surgeon Immed Pre Op
-
I have examined this patient prior to performance of the scheduled procedure.
The patient's condition is unchanged from the time of the dictated/written History and
Physical and the patient is able to undergo the scheduled procedure.
--- NOTE | 2024-03-07 07:45 | PTCARENOTE ---
Rec'd Pt for brief period of time, A,A+Ox3, in good spirits, family at bedside. CVOR called for Pt. Pt transported to CVOR
[2024-03-07 08:18] LABS: Urine Albumin Negative (Neg - Trace); Urine Bilirubin Negative (Negative); Urine Character Clear (Clear); Urine Color Yellow; Urine Glucose Negative (Negative); Urine Ketone Negative (Negative); Urine Leukocyte Negative (Negative); Urine Nitrite Negative (Negative); Urine Occult Blood 2+ (Negative); Urine Urobilinogen Negative (Neg - 1+)
[2024-03-07 08:30] LABS: Urine Squamous Cell 0-2 /LPF (Few)
[2024-03-07 08:48] LABS: ACT+ - POC 96 Seconds (82-134)
--- NOTE | 2024-03-07 09:06 | CM ---
pt in OR today, cm to follow.
[2024-03-07 09:45] LABS: ACT+ - POC 545 Seconds (82-134)
[2024-03-07 10:10] LABS: B.E. - POC -2.4 mmol/L; Glucose - POC 128 mg/dl (70-99); HCO3 - POC 22 mmol/L (21-29); Hematocrit - POC 37 % PCV (42-52); Hemodilution- POC No; Hemoglobin Calculated - POC 12.5; Ionized Calcium - POC 1.13 mmol/L (1.12-1.27); O2 Saturation %Calculated-POC 98.1 5 (92-96); PCO2 - POC 36 mmHg (35-45); PO2 - POC 106 mmHg (80-100); POC Comment PRE; Potassium - POC 4.3 mmol/L (3.6-5.0); Sodium - POC 139 mmol/L (135-145)
[2024-03-07 10:22] LABS: ACT+ - POC 619 Seconds (82-134)
[2024-03-07 10:40] LABS: B.E. - POC 2.2 mmol/L; Glucose - POC 128 mg/dl (70-99); HCO3 - POC 27 mmol/L (21-29); Hematocrit - POC 34 % PCV (42-52); Hemodilution- POC Yes; Hemoglobin Calculated - POC 11.6; Ionized Calcium - POC 1.01 mmol/L (1.12-1.27); PCO2 - POC 40 mmHg (35-45); PO2 - POC 386 mmHg (80-100); POC Comment CPB; Sodium - POC 134 mmol/L (135-145); pH - POC 7.44 (7.35-7.45)
[2024-03-07 10:49] LABS: ACT+ - POC 478 Seconds (82-134)
[2024-03-07 11:24] LABS: B.E. - POC 2.3 mmol/L; Glucose - POC 139 mg/dl (70-99); HCO3 - POC 27 mmol/L (21-29); Hematocrit - POC 33 % PCV (42-52); Hemodilution- POC Yes; Hemoglobin Calculated - POC 11.2; Ionized Calcium - POC 1.05 mmol/L (1.12-1.27); PCO2 - POC 42 mmHg (35-45); PO2 - POC 356 mmHg (80-100); POC Comment CPB; Potassium - POC 5.9 mmol/L (3.6-5.0); Sodium - POC 136 mmol/L (135-145); pH - POC 7.42 (7.35-7.45)
[2024-03-07 11:28] LABS: ACT+ - POC 104 Seconds (82-134)
[2024-03-07 11:46] LABS: B.E. - POC -2.1 mmol/L; Glucose - POC 159 mg/dl (70-99); HCO3 - POC 23 mmol/L (21-29); Hematocrit - POC 32 % PCV (42-52); Hemodilution- POC Yes; Hemoglobin Calculated - POC 10.7; Ionized Calcium - POC 1.16 mmol/L (1.12-1.27); O2 Saturation %Calculated-POC 85.8 5 (92-96); PCO2 - POC 39 mmHg (35-45); PO2 - POC 52 mmHg (80-100); POC Comment POST; Potassium - POC 5.1 mmol/L (3.6-5.0); Sodium - POC 137 mmol/L (135-145); pH - POC 7.37 (7.35-7.45)
[2024-03-07 12:02] LABS: B.E. - POC 0.9 mmol/L; Glucose - POC 146 mg/dl (70-99); HCO3 - POC 26 mmol/L (21-29); Hematocrit - POC 33 % PCV (42-52); Hemodilution- POC Yes; Hemoglobin Calculated - POC 11.1; Ionized Calcium - POC 1.13 mmol/L (1.12-1.27); O2 Saturation %Calculated-POC 91.1 5 (92-96); PCO2 - POC 42 mmHg (35-45); PO2 - POC 62 mmHg (80-100); POC Comment POST; Potassium - POC 4.8 mmol/L (3.6-5.0); Sodium - POC 139 mmol/L (135-145)
--- NOTE | 2024-03-07 12:14 | W.PN.CT.SURG ---
CT Surgery Operative Note
-
Pre-op Diagnosis: AFIB
CAD
Post-op Diagnosis: Same
Procedure: Cabg x 3
Miranda - lad
ao-svg-om
svg -pda
on pump
RF maze with Encompass
LAAL #35 clip
REVH
RSF
Primary Surgeon: bloom
Assisting Surgeons: Murt - leg and chest
Specimen: None
Cultures: None
Complications / Blood Loss: None
Findings: Bhanu with preserved ef pre and post revasc
[place]aine without clot, completely occluded and no flow post clip
good jaylon
fair vein
diffuse cad
ramus too small too graft
--- NOTE | 2024-03-07 12:28 | CON.INTV ---
Consultation
Consultation Request
Date/Time Consultation Requested: 03/07/24
Date/Time Consultation Performed: 03/07/24
Performing Provider: Piero
Reason for Consultation: CVICU
Medical History
-
History of Present Illness:
Patient is a 69-year-old male with previous history of hypertension, hyperlipidemia, BPH who presents with tachycardia and palpitations prior to admission, found to be in SVT which was treated with adenosine and diltiazem. Was noted to have
increased cardiac troponins and underwent catheterization 03/02/2024 demonstrating significant multivessel CAD. CT surgery was consulted, underwent CABG and maze procedure 03/07/2024. He is postoperatively transferred to CVICU for further management.
Past Medical History
Past Medical History: Other (see list below)
Social History
Tobacco: Non-smoker
Alcohol: None
Drug: None
Family History
Family History: Reviewed & Not Pertinent
Allergies / Home Medications
Allergies
Allergy/AdvReac Type Severity Reaction Status Date / Time
No Known Allergies Allergy Verified 03/02/24 00:13
Home Medications
�Medication �Instructions �Recorded �Confirmed �Last Taken �Type
amlodipine 2.5 mg tablet 2.5 mg PO DAILY Blood Pressure 03/02/24 03/02/24 03/01/24 History
atenolol 25 mg tablet 25 mg PO DAILY Blood Pressure 03/02/24 03/02/24 03/01/24 History
atorvastatin 20 mg tablet 20 mg PO HS High Cholesterol 03/02/24 03/02/24 03/01/24 History
lisinopril 20 mg tablet 20 mg PO DAILY Blood Pressure 03/02/24 03/02/24 03/01/24 History
tamsulosin 0.4 mg capsule 0.4 mg PO HS Urinary Issue 03/02/24 03/02/24 03/01/24 History
testosterone 2 pump topical DAILY Hormonal Agent 03/02/24 03/02/24 03/01/24 History
Review of Systems
-
Unable to Obtain full review of systems at this time due to: Patient Intubation
Vitals / Labs / Diagnostic Testing
Vital Signs
Temp Pulse Resp BP Pulse Ox
98.5 F 67 18 121/69 94
03/07/24 05:29 03/07/24 07:00 03/07/24 05:29 03/07/24 06:30 03/07/24 05:29
Laboratory Results
03/06/24 03/07/24
17:18 06:32
APTT 74.5 H 59.0 H
Diagnostic Testing:
Physical Exam
-
HEENT: Normocephalic, Anicteric and Moist Mucous Membranes
Cardiovascular: S1/S2 and Regular Rhythm
Respiratory: Clear, Non-Labored Respirations and Other (Chest tube/ETT)
GI: Soft, Non Distended and Non Tender
Neurology: Other (sedated/intubated)
Skin: Warm, Dry and Good Color
General: Comfortable and Other (NAD)
Assessment
-
Patient is a 69-year-old male with previous history of hypertension, hyperlipidemia, BPH who presents with tachycardia and palpitations prior to admission, found to be in SVT which was treated with adenosine and diltiazem. Was noted to have
increased cardiac troponins and underwent catheterization 03/02/2024 demonstrating significant multivessel CAD. CT surgery was consulted, underwent CABG and maze procedure 03/07/2024. He is postoperatively transferred to CVICU for further management.
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
Perioperative mechanical ventilation
Tachycardia/palpitations
Suspect ANGELA
Conditions present AMPOULE EXAMINER
BPH with LUTS
Umbilical hernia repair (Salomon Redmerritt)
Anterior cervical spine fusion (Salomon Redmerritt)
UroLift 06/12/21
Obesity BMI 35.1
Plan
S/p CAB/MAZE POD #0
Titrate off pressors per protocol
ECHO reviewed with normal function
PA catheter readings reviewed
Management of chest tubes per primary service
Intubated/sedated, initiate SAT when able
Pain control
RASS goal of 0 to -1
Intubated for procedure, SBT trial when patient able to spontaneously breath
Current vent settings: SIMV 550/14/60/5+
ABG(s) reviewed/adequate
CXR with no obvious opacities/infiltrates, low lung volumes, ETT in good position, lines/tubes in place
Extubate per protocol
Maintain supplement oxygen as needed
No prior history of pulmonary disease, suspect ANGELA
No prior PFTs for review
Can add nebulizers if needed
Aspiration precautions
Encouraged incentive spirometry, OOB/ambulation/early mobility
Advance diet as tolerated following extubation
GI prophylaxis if indicated for mechanical ventilation >48 hours
Monitor critical I/O's
Rodriguez/chest tube output
Hb/platelets postoperatively stable
Trend CBC for now
Can transfuse if indicated for Hb <7, plt <50 in surgical patients
DVT prophylaxis including SCDs
Insulin protocol initiated and ongoing
Transition to SQ/off as indicated per team
We will follow
Diagnostic Data
Chest X-Ray: 03/03/24- No acute pulmonary process.
CT Scan: Chest CT 03/03/24- 1. Severe coronary calcification. Mild calcific atherosclerotic changes of aorta. Borderline ectasia ascending aorta.
2. No acute pulmonary process. Subcentimeter focal opacity in the superior segment of the right lower lobe as above, probable peripheral mucoid impaction. Endobronchial neoplasm considered less likely, cannot be definitively excluded. There is
apparent focal ectasia of the left lower lobe pulmonary arterial branch as above. These findings could be further evaluated with follow-up contrast-enhanced CT of the chest in 3-6 months to evaluate for stability or resolution.
3. Approximately 1.7 cm cystic pancreatic lesion. Pancreas is incompletely imaged. Recommend further evaluation with follow-up contrast-enhanced MRI of the abdomen nonemergently.
[facility] 03/02/24- CONCLUSIONS
1. Heavily calcified coronary arteries with significant multivessel coronary artery disease.
2. Elevated LVEDP.
ECHO 03/02/24- Normal left ventricular chamber size. Normal left ventricular systolic function. Normal regional wall motion. Normal left ventricular wall thickness. Mild concentric left ventricular hypertrophy. Left ventricular ejection fraction is
60-65% by Woodruff's method of discs. Stage I diastolic dysfunction suggestive of abnormal relaxation. Normal right ventricular size and function.
No significant valvular disease. Mildly dilated aortic root with Sinus of Valsalva measuring 3.8 cm. No prior study available for comparison.
Reports and relevant images were personally reviewed.
-----
Critical Care time 50 mins -- The patient is admitted for acute critical illness for the treatment of vital organ failure and/or prevention of further life-threatening conditions. Total care includes time spent in review of history, physical exam,
medications, hemodynamic/ventilator parameters, laboratory data, imaging and discussion with house staff, pharmacy, respiratory therapy, card reader, and nursing.
[2024-03-07] MEDS: LOW STRENGTH ASPIRIN PO (12:30)
[2024-03-07] MEDS: PACERONE PO (12:31)
--- NOTE | 2024-03-07 12:40 | PTCARENOTE ---
Received pt for CVOR. Pt intubated and sedated on precedex gtt. Unresponsive RAAS -5. 100% A-paced via temporary pacemaker set to AAI 78/16/0.5. Epicardial v-wire connect to temp box, turned off. Sinus alyson 1st degree AV block underlying. B/P:
111/67, HR: 52. B/P supported with levo gtt. CVP:9 POX 98%. 8.0 ETT, 22 cm at the lip. SIMV 100% 14/550/5/5. L pleural C/T and mediastinal C/Tx1, y-tubed to 1 atrium, -20cm suction no tidaling or crepitus noted. Draining red fluid WNL. Bilateral
radial pulses palpable, bilateral PT and DP weak on palpation. generalized trace edema. Hypoactive BS, abdomen soft. Rodriguez intact draining clear, yellow urine WNL. Sternal incision approx. surgical glue present. R groin 4x4 dressing C/D/I, slightly
ecchymotic below dressing. Right SVG harvest site approximated with skin glue and ESTER-CDI. R cordis and slick intact. Left radial A-line. [place] and CVP flushed, leveled, and zeroed with appropriate waveforms. R 16g antecubital intact. Insulin gtt
infusing. Post op EKG, labs, and CXR completed.
[2024-03-07 12:48] LABS: Glucose - Point of Care 164 mg/dl (70-99)
[2024-03-07 12:59] LABS: B.E. 0.3 mmol/L; HCO3 25.4 mmol/L (21-28); Hematocrit 35.7 % (39.0-52.0); Hemoglobin 12.5 g/dL (13.0-18.0); Ionized Calcium 1.18 mMOL/L (1.15-1.33); O2 Saturation % 99.2 % (94-98); PCO2 42 mmHg (35-48); PO2 142 mmHg (83-108); Platelet Count 124 10^3/uL (130-400); Potassium 4.5 mMOL/L (3.5-5.1); Sodium 133 mMOL/L (136-145); pH 7.39 (7.35-7.45)
[2024-03-07 13:02] LABS: Mixed Venous O2 Saturation 78.6 %
[2024-03-07 13:03] LABS: O2 Therapy VENT
[2024-03-07 13:10] LABS: INR 1.19; PT 14.9 Sec (11.4-14.6)
[2024-03-07 13:11] LABS: APTT 33.7 Sec (23.4-35.0)
[2024-03-07 13:20] LABS: Blood Urea Nitrogen 22 mg/dl (9-20); Estimated Creatinine Clearance 84 ml/min; Glucose 140 mg/dl (70-99); Magnesium 3.4 mg/dl (1.6-2.3)
[2024-03-07] MEDS: ANCEF 10 IV ×2 (13:38→13:39)
[2024-03-07] MEDS: TYLENOL PO (13:39)
[2024-03-07] MEDS: NSS 500 IV (13:39)
[2024-03-07 14:00] LABS: Glucose - Point of Care 163 mg/dl (70-99)
--- NOTE | 2024-03-07 14:21 | W.PN.CARDCBS ---
Addendum entered and electronically signed by Travon Sheffield MD 03/07/24 16:53:
I saw and examined the patient.
The Water Sponger's note was reviewed and I agree with the note.
Comment: Briefly, 69-year-old man presenting with SVT found to have elevated troponin consistent with NSTEMI. 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
Currently resting comfortably in the CVICU, extubated to nasal cannula
Hemodynamic support with norepinephrine
Currently A paced, underlying is sinus bradycardia with heart rate in the 50s
Volume status appears reasonable on exam
Agree with current cardiac meds
We will continue to follow with you
Original Note:
Today's Communication / Plan
-
Levo at 3
No ischemic changes on ECG
Impression / Plan
-
PCP: Dr. Cecille Canales at [facility]
Cardiology: scheduled to see Dr. Frank as a new patient 03/31/24
Impression:
CAD
s/p NSTEMI peak Troponin 5.120 03/02/24
MV CAD by cath 03/02/24
s/p CABG with GARCIA to LAD, SVG to OM and SVG to PDA 03/07/24
PSVT, AVNRT
AVNRT unresponsive to adenosine x2 and then finally broke with Cardizem IV 03/02/24
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
HTN
Hyperlipidemia
BPH
prediabetes, HBA1C 5.9%
Holter monitor 12/25/22: Less than 1% burden PACs/PVCs, no arrhythmia
Echo 12/25/22: EF 55%, no significant valve disease
Echo 03/02/24: Technically difficult echo contrast utilized. Normal LV size and systolic function with no regional wall motion abnormalities and mild LVH. LV ejection fraction 60-65% with grade 1 diastolic dysfunction, trileaflet, mildly sclerotic
aortic valve without stenosis or AI. No TR. No MR. No pericardial effusion. Mildly dilated aortic root at the sinus of Valsalva measuring 3.8 cm
Plan:
-Patient is s/p CABG with GARCIA to LAD, SVG to OM and SVG to PDA 03/07/24.
-Levo running at 3
-Post-op ECG reviewed by me shows sinus bradycardia without acute ischemic changes
-NSTEMI this admission and eventually will restart Plavix for 6 months of therapy
-EF 60-65%.
-Outpatient dose of atenolol changed to metoprolol, most doses of metoprolol were held due to bradycardia because patient was also ordered Cardizem gtt.
-Palpitations on admission and ECG on 03/02/24 showed SVT/AVNRT. Patient failed to respond to adenosine 6 mg IV x2 doses and ultimately converted with Cardizem 20 mg IV x1. Increasing arrhythmia burden on 03/03/24 that was not responsive to BB or
amiodarone, but was responsive to the addition of Cardizem gtt at 5 mg/hr. If patient has recurrent AVNRT then would start with Cardizem IV.
-LDL 71 and outpatient dose of atorvastatin increased to 80 mg daily
-Outpatient dose of amlodipine increased to 2.5 mg daily is on hold post-op
-Outpatient dose of lisinopril 20 mg daily is on hold post-op
-Carotid u/s 03/03/24 that showed less than 50% B/L ICA disease. CT chest 03/03/24 showed a subcentimeter focal opacity in the superior segment of the RLL that is probably peripheral mucoid impaction and endobronchial neoplasm considered less likely,
but cannot be definitively excluded. There is apparent focal ectasia of the left lower lobe pulmonary arterial branch as above. These findings could be further evaluated with follow-up contrast-enhanced CT of the chest in 3-6 months to evaluate for
stability or resolution. CXR without acute disease.
HPI: [facility] with palpitations and cardiology is consulted for SVT and elevated Troponin. Patient reports palpitations on and off for more than a year. Palpitations generally once a month and last for a few minutes. No known provocative
or palliative factors. Echo and Holter monitor 12/2022 reviewed above. Patient got up from bed to urinate last night and felt the palpitations feeling in his chest, but palpitations were more intense and did not resolve in a few minutes so patient
came to [facility] and initial ECG reviewed by me showed nonspecific ST changes, patient also in SVT with HR of 164 bpm. Patient was given adenosine 6 mg IV x1 without change and then given a second dose of adenosine 6 mg IV x1 with slowing of HR and
reportedly no underlying P waves and HR increased as adenosine faded. Patient then given Cardizem 20 mg IV x1 and patient spontaneously converted to SR. No chest pain. Initial Troponin was undetectable and then up to 1.42 and then 3.94. Patient with
fatigue and SEQUEIRA recently, but no chest pain.
Progress Note - Virtualization Engineer
Subjective
Date of Service: March 07, 2024
Intubated and sedated
Objective
Labs:
03/07/24 12:48
Labs
Hgb 12.5 g/dL (13.0-18.0) L 03/07/24 12:48
Hct 35.7 % (39.0-52.0) L 03/07/24 12:48
Plt Count 124 10^3/uL (130-400) L 03/07/24 12:48
PT 14.9 Sec (11.4-14.6) H 03/07/24 12:48
INR 1.19 03/07/24 12:48
APTT 33.7 Sec (23.4-35.0) 03/07/24 12:48
Sodium 138 mmol/L (135-145) 03/06/24 04:31
Potassium 4.5 mmol/L (3.5-5.1) 03/06/24 04:31
BUN 22 mg/dl (9-20) H 03/07/24 12:48
Creatinine 1.0 mg/dL (0.7-1.3) 03/07/24 12:48
Glucose 140 mg/dl (70-99) H 03/07/24 12:48
Vital Signs and I&O:
Vital Signs
Temp Pulse Resp BP Pulse Ox
97.3 F 78 0 89/71 97
03/07/24 14:00 03/07/24 14:00 03/07/24 14:00 03/07/24 14:00 03/07/24 14:00
Vital Signs
Temp Pulse Resp BP Pulse Ox
97.3 F 78 0 89/71 97
03/07/24 14:00 03/07/24 14:00 03/07/24 14:00 03/07/24 14:00 03/07/24 14:00
Intake & Output
03/05/24 03/06/24 03/07/24 03/08/24
06:59 06:59 06:59 06:59
Intake Total 480 / 480 38 / 38 134.8 / 134.8
Output Total 350 / 350 245 / 245
Balance 480 / 480 38 / 38 -350 / -350 -110.2 / -110.2
Physical Exam
Physical Exam
GEN: Intubated and sedated
HEENT: MMM
LUNGS: Intubated and on the ventilator. No audible wheeze
CV: V paced on tele
ABD: ND
EXT: No edema B/L
SKIN: No rash
[2024-03-07 14:56] LABS: COVID-19 Antigen Negative (Negative)
--- NOTE | 2024-03-07 15:10 | PTCARENOTE ---
Pt awake, follows commands appropriately to squeeze hands, wiggle toes, and shake head appropriately to questions. RT notified and at bedside to place pt on cpap. POX 94%, pt tolerating.
[2024-03-07 15:17] LABS: Glucose - Point of Care 133 mg/dl (70-99)
[2024-03-07] MEDS: OFIRMEV 100 IV (15:20)
[2024-03-07 15:58] LABS: B.E. -1.7 mmol/L; HCO3 24.3 mmol/L (21-28); Ionized Calcium 1.14 mMOL/L (1.15-1.33); O2 Saturation % 98.5 % (94-98); PCO2 45 mmHg (35-48); PO2 86 mmHg (83-108); Potassium 4.3 mMOL/L (3.5-5.1); pH 7.34 (7.35-7.45)
[2024-03-07 16:04] LABS: Glucose - Point of Care 117 mg/dl (70-99)
--- NOTE | 2024-03-07 16:12 | PTCARENOTE ---
CPAP ABG back, CT PA notified, and order to extubate obtained. RT notified and at bedside. Pt extubated to 6L NC. POX 96%. Pt able to state his name and . IS completed 1000mL achieved. Drifts of to sleep easily.
--- NOTE | 2024-03-07 16:14 | RESPNOTE ---
Respiratory: patient extubated @1612 without incident no stridor. SpO2 99% on 6 LPM nasal cannula.
--- NOTE | 2024-03-07 16:30 | PTCARENOTE ---
Pt reassessed. Pt drowsy, but will awaken to voice, oriented x4. GRAMAJO with generalized weakness. 100% A-paced with rate at 78bpm. SB with 1st degree AVB underlying. BP supported with Levo. POX 96% on 6L NC. Left pleural and mediastinal chest tube
y-sited to 1 atrium to -20cm suction draining red fluid, WNL. Rodriguez draining adequate amounts of clear yellow urine. Right IJ cordis, slick intact. Left radial rafael intact with appropriate waveform. PIV x1 intact infusing Critical care glycemic
protocol. Surgical sites stable.
[2024-03-07] MEDS: CALCIUM CHLORIDE 10% SYRINGE 50 MG IV (16:42)
[2024-03-07] MEDS: CALCIUM CHLORIDE 10% SYRINGE 50 ML IV (16:42)
[2024-03-07] MEDS: NEURONTIN PO (16:43)
[2024-03-07 16:49] LABS: Hematocrit 37.8 % (39.0-52.0); Hemoglobin 13.2 g/dL (13.0-18.0); Platelet Count 148 10^3/uL (130-400)
[2024-03-07] MEDS: LR 250 ML IV (16:57)
[2024-03-07 17:02] LABS: Glucose - Point of Care 106 mg/dl (70-99)
[2024-03-07] MEDS: LOW STRENGTH ASPIRIN 81 MG PO (17:13)
[2024-03-07] MEDS: LIPITOR 80 MG PO (17:16)
[2024-03-07] MEDS: NEURONTIN 100 MG PO ×2 (17:19→20:08)
[2024-03-07 18:56] LABS: Glucose - Point of Care 97 mg/dl (70-99)
--- NOTE | 2024-03-07 19:30 | PTCARENOTE ---
assumed care of patient @ 1900. received pt laying in bed, aox3. no c/o pain. 100 % AV paced with 1st degree block on tele. Weak pedals, no edema. V wire set to AAI rate 78,16,.08. BP 120s/60s. Lungs clear, diminished satting 95 %. 2 chest tubes L
pleural and mediastinal to wall suction no air leak, tidaling or crepitus noted. Belly round, obese, hypoactive bowel sounds. valencia present draining clear yellow urine. MSI JUANCARLOS CDI, R SVG JUANCARLOS, R groin with 2x2 CDI. R IJ cordis with slic, L radial A
line and PIV all patent. recieved pt on insulin per protocol and levo at 2. pt resting comfortably in bed with call fernandez within reach .
--- NOTE | 2024-03-07 20:00 | PTCARENOTE ---
CTPA in room, paused pacer to assess underlying rhythm, sinus alyson with 1st degree block, pacer kept on AAI rate as backup 54
[2024-03-07] MEDS: ANCEF 5 IV (20:08)
[2024-03-07] MEDS: SENOKOT-S 1 TABLET PO (20:08)
[2024-03-07] MEDS: TYLENOL 1000 MG PO (20:08)
[2024-03-07] MEDS: FLOMAX 0.4 MG PO (20:19)
[2024-03-07] MEDS: DILAUDID 0.25 MG IV (20:32)
--- NOTE | 2024-03-07 20:49 | PTCARENOTE ---
.25 Dilaudid given for sudden breakthrough pain on L flank
[2024-03-07 21:59] LABS: Glucose - Point of Care 135 mg/dl (70-99)
[2024-03-07] MEDS: ROXICODONE 5 MG PO (22:00)
--- NOTE | 2024-03-07 23:00 | PTCARENOTE ---
no change in assessment
[2024-03-07 23:59] LABS: Glucose - Point of Care 128 mg/dl (70-99)
[2024-03-08] VITALS (16 sets, daily range): BP systolic 95–157; BP diastolic 52–98; PULSE 81; O2SAT 91–94; BMI 36.0
[2024-03-08 02:01] LABS: Glucose - Point of Care 99 mg/dl (70-99)
[2024-03-08] MEDS: ROXICODONE 5 MG PO ×3 (02:03→15:47)
--- NOTE | 2024-03-08 03:00 | PTCARENOTE ---
pt given jimbo for pain, BP great off levo, resting with call fernandez within reach
[2024-03-08 03:01] LABS: Hematocrit 36.5 % (39.0-52.0); Hemoglobin 12.7 g/dL (13.0-18.0); Mean Corp Hgb Conc. 34.8 g/dL (33.0-37.0); Mean Corpuscular Hgb 31.8 pg (27.0-31.0); Mean Corpuscular Volume 91.3 fL (80.0-94.0); Mean Platelet Volume 10.3 fL (7.4-10.4); Platelet Count 143 10^3/uL (130-400); Red Cell Dist. Width 13.3 % (11.5-14.5); White Blood Cell Count 11.6 10^3/uL (4.8-10.8)
[2024-03-08 03:37] LABS: Blood Urea Nitrogen 24 mg/dl (9-20); Calcium 8.8 mg/dl (8.4-10.2); Carbon Dioxide 24 mmol/L (22-30); Chloride 104 mmol/L (98-107); Estimated Creatinine Clearance 84 ml/min; Glucose 91 mg/dl (70-99); Magnesium 2.5 mg/dl (1.6-2.3); Potassium 4.6 mmol/L (3.5-5.1); Sodium 138 mmol/L (135-145); eGFR > 60.00
[2024-03-08 04:12] LABS: Glucose - Point of Care 128 mg/dl (70-99)
[2024-03-08] MEDS: ANCEF 5 IV ×2 (04:44→12:12)
[2024-03-08 06:02] LABS: Glucose - Point of Care 112 mg/dl (70-99)
--- NOTE | 2024-03-08 06:30 | W.PN.CT ---
Today's Communication / Plan
-
-pod #1
-no issues overnight
-drips: insulin
-CT output: L pleur and med 65/215 in 12/24 hrs
-deline
-d/c Rodriguez
-current meds (ASA, Plavix, Lipitor, Lopressor, Flomax, Protonix)
-encourage IS, oOB
Assessment / Plan
-
- NSTEMI/ mv-CAD - s/p on pump Cabg x3 (Miranda - lad, ao-svg-om, svg -pda [y-graft off svg-om]); RF maze with Encompass; LAAL #[address] Schwartz on 03/07/24, pod #1
- Intraop PRESTON: preserved ef pre and post revasc; [place] without clot, completely occluded and no flow post clip
- PSVT, AVNRT -failed to respond to adenosine 6 mg IV x2 doses and ultimately converted with Cardizem 20 mg IV x1 on 03/02/24
- 1st degree AVB preop
- HTN
- Hyperlipidemia
- BPH
- Prediabetes, HBA1C 5.9%
- Holter monitor 12/25/22: Less than 1% burden PACs/PVCs, no arrhythmia
- Echo 03/02/24: Technically difficult echo contrast utilized. Normal LV size and systolic function with no regional wall motion abnormalities and mild LVH. LV ejection fraction 60-65% with grade 1 diastolic dysfunction, trileaflet, mildly
sclerotic aortic valve without stenosis or AI. No TR. No MR. No pericardial effusion. Mildly dilated aortic root at the sinus of Valsalva measuring 3.8 cm
- Acute postop blood loss anemia - stable, no transfusion
- Acute postop thrombocytopenia
- Acute postop atelectasis
- Acute postop hypovolemia with subsequent hypervolemia
Discussed patient care with: Nursing and Care Team
Subjective
Procedure
- s/p on pump Cabg x3 (Miranda - lad, ao-svg-om, svg -pda [y-graft off svg-om]); RF maze with Encompass; LAAL #[address] Schwartz on 03/07/24
-
Date of Service: March 08, 2024
Objective Data
-
PT 14.9 Sec (11.4-14.6) H 03/07/24 12:48
INR 1.19 03/07/24 12:48
APTT 33.7 Sec (23.4-35.0) 03/07/24 12:48
Vital Signs
Vital Signs
Temp Pulse Resp BP Pulse Ox
97.9 F 68 23 104/69 95
03/07/24 22:00 03/07/24 22:05 03/07/24 22:05 03/07/24 22:00 03/07/24 22:05
CT Intake/Output/Weight
03/07/24 03/07/24 03/08/24
06:59 18:59 06:59
Intake Total 694.8 / 801.9 107.1 / 801.9
Output Total 350 / 350 605 / 815 210 / 815
Balance -350 / -350 89.8 / -13.1 -102.9 / -13.1
SaO2: 95
Physical Exam
-
General: Awake and AOx3
Cardiovascular: Regular rate & rhythm, No Murmurs and No Rub
Respiratory: Decreased Breath Sounds
Sternum: Stable
Incision: Clean, Dry and Intact
Extremities: No Edema
Data Reviewed
-
Lab Results: Results Reviewed
Medications: Active Meds Reviewed
Chest X-Ray: Report Reviewed and Image Reviewed
ECG: Report Reviewed and Image Reviewed
--- NOTE | 2024-03-08 07:05 | PTCARENOTE ---
pt de lined, up OOB to chair w/o incident. resting in chair with with call fernandez within reach .
--- NOTE | 2024-03-08 07:32 | W.PN.CARDCBS ---
Addendum entered and electronically signed by Chary Becker DO 03/08/24 23:50:
I saw and examined the patient.
The Protective Signal Repairer's note was reviewed and I agree with the note.
Comment: Seen and examined. OOB to chair; son at bedside. Denies URI sx or cough. No CP, or palpitations. Chart/tele reviewed
General: NAD, AAOx3 6l NC
Neck: + cortis
Heart: Regular, positive S1/S2, no murmur
Lungs: CTA b/l, decreased at bases
Abd: Positive BS, NT/ND, neg rebound/rigidity/guarding
Ext: No edema
Neuro: nonfocal
Plan:
s/p on pump Cabg x3 (Garcia - lad, ao-svg-om, svg -pda [y-graft off svg-om]); RF maze with Encompass; LAAL #[address] Schwartz on 03/07/24, pod #1
-hemodynamically stable off pressors
-ECG 03/08/24 AM NSR with 1st degree AVB, NSST
-CT management per CTS
-IV lasix
-Plan is for Plavix for 6 months due to presentation with NSTEMI
-AVNRT on admission that failed to respond to adenosine 6 mg IV x2 doses and ultimately converted with Cardizem 20 mg IV x1 in the ER 03/02/24. Increasing arrhythmia burden on 03/03/24 that was not responsive to BB or amiodarone, but was again
responsive to the addition of Cardizem gtt at 5 mg/hr.
-Post op, no recurrent AVNRT -Agree with Lopressor 12.5 mg BID and monitor. Patient was taking atenolol prior to admission.
-LDL 71 and outpatient dose of atorvastatin increased to 80 mg daily
- supportive post op care
Original Note:
Today's Communication / Plan
-
Cont Lopressor for now and if recurrent arrhythmia then would add Cardizem
Plavix started and would plan on 6 months of therapy given NSTEMI on admission
Impression / Plan
-
PCP: Dr. Cecille Canales at [facility]
Cardiology: scheduled to see Dr. Frank as a new patient 03/31/24
Impression:
CAD
s/p NSTEMI peak Troponin 5.120 03/02/24
MV CAD by cath 03/02/24
s/p CABG with GARCIA to LAD, SVG to OM and SVG to PDA 03/07/24
PSVT, AVNRT
AVNRT unresponsive to adenosine x2 and then finally broke with Cardizem IV 03/02/24
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
HTN
Hyperlipidemia
BPH
prediabetes, HBA1C 5.9%
Holter monitor 12/25/22: Less than 1% burden PACs/PVCs, no arrhythmia
Echo 12/25/22: EF 55%, no significant valve disease
Echo 03/02/24: Technically difficult echo contrast utilized. Normal LV size and systolic function with no regional wall motion abnormalities and mild LVH. LV ejection fraction 60-65% with grade 1 diastolic dysfunction, trileaflet, mildly sclerotic
aortic valve without stenosis or AI. No TR. No MR. No pericardial effusion. Mildly dilated aortic root at the sinus of Valsalva measuring 3.8 cm
Plan:
-Patient is s/p CABG with GARCIA to LAD, SVG to OM and SVG to PDA 03/07/24.
-Pressors stopped overnight
-ECG 03/08/24 AM reviewed by me and is SR without ischemic changes
-NSTEMI this admission and plan is for Plavix for 6 months
-AVNRT on admission that failed to respond to adenosine 6 mg IV x2 doses and ultimately converted with Cardizem 20 mg IV x1 in the ER 03/02/24. Increasing arrhythmia burden on 03/03/24 that was not responsive to BB or amiodarone, but was again
responsive to the addition of Cardizem gtt at 5 mg/hr. If patient has recurrent AVNRT then would start with Cardizem IV.
-Thus far arrhythmia burden has decreased following CABG. Agree with Lopressor 12.5 mg BID. Patient was taking atenolol prior to admission.
-LDL 71 and outpatient dose of atorvastatin increased to 80 mg daily
-Outpatient dose of amlodipine increased to 2.5 mg daily is on hold post-op
-Outpatient dose of lisinopril 20 mg daily is on hold post-op
-Carotid u/s 03/03/24 that showed less than 50% B/L ICA disease. CT chest 03/03/24 showed a subcentimeter focal opacity in the superior segment of the RLL that is probably peripheral mucoid impaction and endobronchial neoplasm considered less likely,
but cannot be definitively excluded. There is apparent focal ectasia of the left lower lobe pulmonary arterial branch as above. These findings could be further evaluated with follow-up contrast-enhanced CT of the chest in 3-6 months to evaluate for
stability or resolution. CXR without acute disease.
HPI: Patient came to [facility] with palpitations and cardiology is consulted for SVT and elevated Troponin. Patient reports palpitations on and off for more than a year. Palpitations generally once a month and last for a few minutes. No known provocative
or palliative factors. Echo and Holter monitor 12/2022 reviewed above. Patient got up from bed to urinate last night and felt the palpitations feeling in his chest, but palpitations were more intense and did not resolve in a few minutes so patient
came to [facility] and initial ECG reviewed by me showed nonspecific ST changes, patient also in SVT with HR of 164 bpm. Patient was given adenosine 6 mg IV x1 without change and then given a second dose of adenosine 6 mg IV x1 with slowing of HR and
reportedly no underlying P waves and HR increased as adenosine faded. Patient then given Cardizem 20 mg IV x1 and patient spontaneously converted to SR. No chest pain. Initial Troponin was undetectable and then up to 1.42 and then 3.94. Patient with
fatigue and SEQUEIRA recently, but no chest pain.
Progress Note - Vanstone Machine Operator
Subjective
Date of Service: March 08, 2024
Feels well, no chest pain
Objective
Labs:
03/08/24 02:13
03/08/24 02:13
Labs
Hgb 12.7 g/dL (13.0-18.0) L 03/08/24 02:13
Hct 36.5 % (39.0-52.0) L 03/08/24 02:13
Plt Count 143 10^3/uL (130-400) 03/08/24 02:13
PT 14.9 Sec (11.4-14.6) H 03/07/24 12:48
INR 1.19 03/07/24 12:48
APTT 33.7 Sec (23.4-35.0) 03/07/24 12:48
Sodium 138 mmol/L (135-145) 03/08/24 02:13
Potassium 4.6 mmol/L (3.5-5.1) 03/08/24 02:13
BUN 24 mg/dl (9-20) H 03/08/24 02:13
Creatinine 1.0 mg/dL (0.7-1.3) 03/08/24 02:13
Glucose 91 mg/dl (70-99) 03/08/24 02:13
Vital Signs and I&O:
Vital Signs
Temp Pulse Resp BP Pulse Ox
98.2 F 83 22 122/75 93
03/08/24 05:00 03/08/24 07:00 03/08/24 07:00 03/08/24 06:00 03/08/24 07:00
Vital Signs
Temp Pulse Resp BP Pulse Ox
98.2 F 83 22 122/75 93
03/08/24 05:00 03/08/24 07:00 03/08/24 07:00 03/08/24 06:00 03/08/24 07:00
Intake & Output
03/06/24 03/07/24 03/08/24 03/09/24
06:59 06:59 06:59 06:59
Intake Total 1046.7 / 1069.0 22.3 / 22.3
Output Total 350 / 350 1285 / 1290 5
Balance -350 / -350 -238.3 / -221.0 17.3 / 17.3
Physical Exam
Physical Exam
GEN: NAD. AAOx3
HEENT: MMM
LUNGS: Oxygen at 6 L NC. No audible wheeze
CV: SR on tele
ABD: ND
EXT: No edema B/L
NEURO: Gross non-focal
SKIN: No rash
--- NOTE | 2024-03-08 08:00 | PTCARENOTE ---
Assumed care of patient from restaurant shift supervisor RN. AAO x 3, sitting up in the chair. SR 1 degree AVB on monitor. AV wires to back up of AAI 54. 6 L NC 92%. Is to 750. Chest tube x 2 to -20 cm suction. No air leak or crepitus noted. Abdomen soft,
round, and positive bowel sounds t/o. Appetite good. Denies nausea. Due to void by 1200. Denies urge at present. Surgical sites c ,d,i. Pulses palpable. No edema appreciated. Plan for day discussed, Insulin drip per protocol.
[2024-03-08] MEDS: MAGNESIUM OXIDE 500 MG PO ×2 (08:07→20:19)
[2024-03-08] MEDS: LOW STRENGTH ASPIRIN 81 MG PO (08:07)
[2024-03-08] MEDS: PLAVIX 75 MG PO (08:07)
[2024-03-08] MEDS: LOPRESSOR 12.5 MG PO (08:07)
[2024-03-08] MEDS: SENOKOT-S 1 TABLET PO ×2 (08:07→20:19)
[2024-03-08] MEDS: BACTROBAN 2% OINTMENT 1 APPLIC NASAL ×2 (08:08→20:20)
[2024-03-08] MEDS: NEURONTIN 100 MG PO ×3 (08:08→20:19)
[2024-03-08] MEDS: TYLENOL PO (08:09)
--- NOTE | 2024-03-08 08:12 | W.PN.ANS.POP ---
Anesthesia Post Operative
- Anesthesia Post Op Note
Vital Signs Stable-See Nursing Note: Yes
Airway Patent: Yes
Adequate Pain Control: Yes
Change in Mental Status: No
Current Postoperative Nausea & Vomiting: No
Anesthesia Complications: No
General Anesthetic Recall: No
Unplanned Admission: No
Post Op Hydration Adequate: Yes
- -
Pt awake and alert, VSS, OOB to chair with no anesthesia related c/o at time of post op visit.
[2024-03-08 08:15] LABS: Glucose - Point of Care 119 mg/dl (70-99)
--- NOTE | 2024-03-08 09:00 | PTCARENOTE ---
Mediastinal chest tube removed , LT pleural chest tube placed to bulb suction as per order. Pt tolerated w/o issue. Will monitor.
[2024-03-08] MEDS: PROTONIX 40 MG PO (09:45)
[2024-03-08 10:08] LABS: Glucose - Point of Care 101 mg/dl (70-99)
--- NOTE | 2024-03-08 11:36 | PTCARENOTE ---
VSS, Sitting in chair. States pain much less since chest tube previously removed. IS to 1000, Assessment unchanged from prior
--- NOTE | 2024-03-08 11:38 | W.PN.INTV ---
Today's Communication / Plan
Recommendations
Doing well post extubation
Wean off O2 to room air
Encouraged OOB/PT/IS
Chest tube management
If doing well, can transfer to tele per team. We will sign off upon transfer.
Assessment
-
Patient is a 69-year-old male with previous history of hypertension, hyperlipidemia, BPH who presents with tachycardia and palpitations prior to admission, found to be in SVT which was treated with adenosine and diltiazem. Was noted to have
increased cardiac troponins and underwent catheterization 03/02/2024 demonstrating significant multivessel CAD. CT surgery was consulted, underwent CABG and maze procedure 03/07/2024. He is postoperatively transferred to CVICU for further management.
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
Perioperative mechanical ventilation
Tachycardia/palpitations
Suspect ANGELA
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
BPH with LUTS
Umbilical hernia repair ([facility])
[facility]
UroLift 06/12/21
Obesity BMI 35.1
Plan
S/p CAB/MAZE POD #1
Titrated off pressors per protocol
ECHO reviewed with normal function
PA catheter discontinued
Management of chest tubes per primary service
Pain control
RASS goal of 0 to -1
Intubated for procedure, extubated and doing well
ABG(s) reviewed/adequate
CXR with stable postop changes
Maintain supplement oxygen as needed
No prior history of pulmonary disease, suspect ANGELA
Can test as OP
No prior PFTs for review
Can add nebulizers if needed
Aspiration precautions
Encouraged incentive spirometry, OOB/ambulation/early mobility
Advance diet as tolerated following extubation
GI prophylaxis if indicated for mechanical ventilation >48 hours
Monitor critical I/O's
Rodriguez/chest tube output
Hb/platelets postoperatively stable
Trend CBC for now
Can transfuse if indicated for Hb <7, plt <50 in surgical patients
DVT prophylaxis including SCDs
Insulin protocol initiated and titrating to off
Transition to SQ/off as indicated per team
Diagnostic Data
Chest X-Ray: 03/03/24- No acute pulmonary process.
CT Scan: Chest CT 03/03/24- 1. Severe coronary calcification. Mild calcific atherosclerotic changes of aorta. Borderline ectasia ascending aorta.
2. No acute pulmonary process. Subcentimeter focal opacity in the superior segment of the right lower lobe as above, probable peripheral mucoid impaction. Endobronchial neoplasm considered less likely, cannot be definitively excluded. There is
apparent focal ectasia of the left lower lobe pulmonary arterial branch as above. These findings could be further evaluated with follow-up contrast-enhanced CT of the chest in 3-6 months to evaluate for stability or resolution.
3. Approximately 1.7 cm cystic pancreatic lesion. Pancreas is incompletely imaged. Recommend further evaluation with follow-up contrast-enhanced MRI of the abdomen nonemergently.
LHC 03/02/24- CONCLUSIONS
1. Heavily calcified coronary arteries with significant multivessel coronary artery disease.
2. Elevated LVEDP.
ECHO 03/02/24- Normal left ventricular chamber size. Normal left ventricular systolic function. Normal regional wall motion. Normal left ventricular wall thickness. Mild concentric left ventricular hypertrophy. Left ventricular ejection fraction is
60-65% by Woodruff's method of discs. Stage I diastolic dysfunction suggestive of abnormal relaxation. Normal right ventricular size and function.
No significant valvular disease. Mildly dilated aortic root with Sinus of Valsalva measuring 3.8 cm. No prior study available for comparison.
Reports and relevant images were personally reviewed.
-----
Critical Care time 35 mins -- The patient is admitted for acute critical illness for the treatment of vital organ failure and/or prevention of further life-threatening conditions. Total care includes time spent in review of history, physical exam,
medications, hemodynamic/ventilator parameters, laboratory data, imaging and discussion with house staff, pharmacy, respiratory therapy, jack machine operator, and nursing.
Subjective Dataa
Subjective Data
Date of Service:
Date of Service: March 08, 2024
Chief Complaint: Circuit Board Inspector Follow Up
Subjective:
Doing well post extubation
Stable on O2
No new complaints, pain minimal
Objective Data
Data Reviewed
Vital Signs / I&O / Oxygen:
Vital Signs
Temp Pulse Resp BP Pulse Ox
98.7 F 78 18 118/61 92
03/08/24 11:33 03/08/24 11:33 03/08/24 11:33 03/08/24 11:28 03/08/24 11:33
Intake and Output
03/07/24 03/08/24 03/09/24
06:59 06:59 06:59
Intake Total 1046.7 / 1069.0 549.5 / 549.5
Output Total 350 / 350 1285 / 1290
Balance -350 / -350 -238.3 / -221.0 524.5 / 524.5
SaO2 [CPAP/PSV] 96
SaO2 [SIMV] 95
SaO2 92
Nasal Cannula flow liters per 4
minute
Physical Exam
General: Comfortable and Other (NAD)
HEENT: Normocephalic, Anicteric and Moist Mucous Membranes
Cardiovascular: S1-S2 and Regular Rhythm
Respiratory: Clear, Non-Labored Respirations and Chest Tube
GI: Soft, Distended (obese) and Non Tender
Neurology: Awake, Alert, Oriented and No Motor Deficits
Skin: Warm, Dry and Good Color
Labs/Micro/Reports
Lab Data
03/08/24 02:13
03/08/24 02:13
Laboratory Results
03/07/24 03/07/24
12:48 15:46
PT 14.9 H
INR 1.19
APTT 33.7
pH 7.39 7.34 L
pCO2 42 45
pO2 142 H 86
HCO3 25.4 24.3
O2 Delivery Level Vent
[2024-03-08] MEDS: NSS IV (12:05)
--- NOTE | 2024-03-08 14:49 | PTCARENOTE ---
Ambulated in hallway with RN able to tolerate approx 50 feet. Assisted back to bed after.
[2024-03-08] MEDS: TYLENOL 1000 MG PO ×2 (15:46→20:20)
[2024-03-08] MEDS: MIRALAX 17 GRAMS PO (15:52)
--- NOTE | 2024-03-08 16:17 | CM ---
CM following for DC planning needs.
Pt. POD#[address] Surgery.
DC plan is for home w/ CT Transitional Care RN.
CM to follow for DC planning needs.
[2024-03-08] MEDS: DILAUDID 0.5 MG IV (16:49)
--- NOTE | 2024-03-08 16:58 | PTCARENOTE ---
Pt without urge to void after allotted time. Bladder scanned for 538 ml. Pt requesting to attempt to void. Pt able to urinate in bathroom while sitting. Pt missed collection device. Assisted back to bed and bladder scanned for 380. Results
discussed with CT PA. Will allow more time to urinate again and check as needed. VSS. Also ambulated again in hallway with RN.
[2024-03-08] MEDS: LIPITOR 80 MG PO (18:16)
--- NOTE | 2024-03-08 18:39 | PTCARENOTE ---
Assisted to void in bathroom, unable to collect specimen. Once back in bed, pt bladder scanned for [address] PA informed. Will monitor.
--- NOTE | 2024-03-08 19:30 | PTCARENOTE ---
assumed care of patient @ 1900. recieved pt laying in bed, AOX3. VSS. NSR with 1st degree on tele HR 70s. V wire insulated. weak pedals, no edema noted. BP stable. Lungs clear, diminished on 4L satting low 90s. IS ~ 1000. 1 chest tube to bulb with
serosang output. belly round, obese, tolerated diet. R IJ cordis with KVO, AC PIV patent. Surgical sites CDI PT resting comfortably in bed with call fernandez within reach .
[2024-03-08] MEDS: FLOMAX 0.4 MG PO (20:19)
[2024-03-08] MEDS: LOPRESSOR 25 MG PO (20:20)
[2024-03-08] MEDS: BENADRYL 25 MG PO (21:02)
--- NOTE | 2024-03-08 23:58 | PTCARENOTE ---
pt resting comfortably no change in assessment
[2024-03-09] VITALS (15 sets, daily range): BP systolic 94–133; BP diastolic 56–81; PULSE 79; O2SAT 93; BMI 36.3
--- NOTE | 2024-03-09 03:00 | PTCARENOTE ---
voided 350 and PVR 470 - CTPA notified. Will continue to follow bladder scans
--- NOTE | 2024-03-09 05:44 | PTCARENOTE ---
labs drawn and sent. Cordis without blood return, CTPA notified. PVR bladder scan 370. pt resting comfortably, no change in assessment .
[2024-03-09 05:53] LABS: COVID-19 Antigen Negative (Negative)
[2024-03-09 05:54] LABS: Hematocrit 32.8 % (39.0-52.0); Hemoglobin 11.1 g/dL (13.0-18.0); Mean Corp Hgb Conc. 33.8 g/dL (33.0-37.0); Mean Corpuscular Hgb 31.6 pg (27.0-31.0); Mean Corpuscular Volume 93.4 fL (80.0-94.0); Mean Platelet Volume 10.9 fL (7.4-10.4); Platelet Count 128 10^3/uL (130-400); Red Cell Dist. Width 13.4 % (11.5-14.5); White Blood Cell Count 12.4 10^3/uL (4.8-10.8)
[2024-03-09 06:02] LABS: Blood Urea Nitrogen 24 mg/dl (9-20); Calcium 8.1 mg/dl (8.4-10.2); Carbon Dioxide 29 mmol/L (22-30); Chloride 98 mmol/L (98-107); Estimated Creatinine Clearance 95 ml/min; Glucose 119 mg/dl (70-99); Magnesium 2.1 mg/dl (1.6-2.3); Potassium 4.2 mmol/L (3.5-5.1); Sodium 133 mmol/L (135-145); eGFR > 60.00
--- NOTE | 2024-03-09 06:30 | W.PN.CT ---
Today's Communication / Plan
-
-pod #2
-no issues overnight, no complaints, ambulated without problems
-CT output: L pleur 40/115 in 12/24 hrs
-wean off O2 as tolerated - pOx 92% on 4L
-hx recent SVT on admission
-current meds (ASA, Plavix, Lipitor, Lopressor 25 bid, Protonix)
-encourage IS, OOB, ambulate
Assessment / Plan
-
- NSTEMI/ mv-CAD - s/p on pump Cabg x3 (Miranda - lad, ao-svg-om, svg -pda [y-graft off svg-om]); RF maze with [facility]compass; LAAL #[address] Schwartz on 03/07/24, pod #2
- Intraop PRESTON: preserved ef pre and post revasc; [place] without clot, completely occluded and no flow post clip
- PSVT, AVNRT -failed to respond to adenosine 6 mg IV x2 doses and ultimately converted with Cardizem 20 mg IV x1 on 03/02/24
- 1st degree AVB preop
- HTN
- Hyperlipidemia
- BPH
- Prediabetes, HBA1C 5.9%
- Holter monitor 12/25/22: Less than 1% burden PACs/PVCs, no arrhythmia
- Echo 03/02/24: Technically difficult echo contrast utilized. Normal LV size and systolic function with no regional wall motion abnormalities and mild LVH. LV ejection fraction 60-65% with grade 1 diastolic dysfunction, trileaflet, mildly
sclerotic aortic valve without stenosis or AI. No TR. No MR. No pericardial effusion. Mildly dilated aortic root at the sinus of Valsalva measuring 3.8 cm
- Acute postop blood loss anemia - stable, no transfusion
- Acute postop thrombocytopenia
- Acute postop atelectasis
- Acute postop hypovolemia with subsequent hypervolemia
Discussed patient care with: Nursing and Care Team
Subjective
Procedure
- s/p on pump Cabg x3 (Miranda - lad, ao-svg-om, svg -pda [y-graft off svg-om]); RF maze with Encompass; LAAL #[address] Schwartz on 03/07/24
-
Date of Service: March 09, 2024
Objective Data
-
PT 14.9 Sec (11.4-14.6) H 03/07/24 12:48
INR 1.19 03/07/24 12:48
APTT 33.7 Sec (23.4-35.0) 03/07/24 12:48
Vital Signs
Vital Signs
Temp Pulse Resp BP Pulse Ox
98.1 F 72 16 157/98 92
03/08/24 20:00 03/08/24 23:58 03/08/24 23:58 03/08/24 23:40 03/08/24 23:58
CT Intake/Output/Weight
03/08/24 03/08/24 03/09/24
06:59 18:59 06:59
Intake Total 351.9 / 1069.0 979.5 / 1519.5 540 / 1519.5
Output Total 680 / 1290 250 / 620 370 / 620
Balance -328.1 / -221.0 729.5 / 899.5 170 / 899.5
SaO2: 92
Physical Exam
-
General: Awake and AOx3
Cardiovascular: Regular rate & rhythm, No Murmurs and No Rub
Respiratory: Decreased Breath Sounds
Sternum: Stable
Incision: Clean, Dry and Dressing Intact
Extremities: Other (trace edema b/l)
Abdomen: soft, nontender, + bowel sounds, no nausea, + flatus
Data Reviewed
-
Lab Results: Results Reviewed
Medications: Active Meds Reviewed
Chest X-Ray: Report Reviewed and Image Reviewed
ECG: Report Reviewed and Image Reviewed
[2024-03-09] MEDS: TYLENOL 1000 MG PO ×2 (07:04→21:15)
[2024-03-09] MEDS: SENOKOT-S 1 TABLET PO (07:55)
[2024-03-09] MEDS: PLAVIX 75 MG PO (07:55)
[2024-03-09] MEDS: MAGNESIUM OXIDE 500 MG PO ×2 (07:55→19:57)
[2024-03-09] MEDS: LOPRESSOR 25 MG PO ×2 (07:55→19:56)
[2024-03-09] MEDS: NEURONTIN 100 MG PO ×3 (07:55→21:15)
[2024-03-09] MEDS: PROTONIX 40 MG PO (07:55)
[2024-03-09] MEDS: LOW STRENGTH ASPIRIN 81 MG PO (07:55)
[2024-03-09] MEDS: ROXICODONE 5 MG PO ×3 (07:55→16:03)
[2024-03-09] MEDS: BACTROBAN 2% OINTMENT 1 APPLIC NASAL ×2 (07:55→19:56)
--- NOTE | 2024-03-09 08:00 | PTCARENOTE ---
Assumed care of patient from quality compliance manager RN. AAO x 3, sitting up in the chair. C/o sternal pain and tiredness. Pain medication reviewed. SR 1 degree AVB on monitor. 3 L NC 92%, IS encouraged and pt using independently. Chest tube x 1 to bulb.
Emptied and reconstituted. Abdomen soft and non tender, pt reported BM this morning. Surgical sites c,d,i. Pulses palpable. Plan for day discussed.
--- NOTE | 2024-03-09 08:30 | W.PN.CARDCBS ---
Addendum entered and electronically signed by Suleiman Rehman MD 03/09/24 12:20:
I saw and examined the patient.
The Change Booth Attendant's note was reviewed and I agree with the note.
Comment:
GEN: No distress, awake, Ox3
HEENT: supple, anicteric, mmm
LUNGS: CTA, no wheezes/rales
CV: Reg, S1/S2, no murmur/rub
ABD: soft, BS+, NT/ND
EXT: No edema
NEURO: Gross non-focal
SKIN: No rash
Plan:
Remains in sinus rhythm. Continue metoprolol for now. Other options would be Cardizem if he has further SVT.
Continue aspirin and Plavix.
Recovering well.
Original Note:
Today's Communication / Plan
-
Cont Lopressor for now and if recurrent arrhythmia then would add Cardizem
Plavix started and would plan on 6 months of therapy given NSTEMI on admission
Impression / Plan
-
PCP: Dr. Cecille Canales at [facility]
Cardiology: scheduled to see Dr. Frank as a new patient 03/31/24
Impression:
CAD
s/p NSTEMI peak Troponin 5.120 03/02/24
MV CAD by cath 03/02/24
s/p CABG with GARCIA to LAD, SVG to OM and SVG to PDA 03/07/24
PSVT, AVNRT
AVNRT unresponsive to adenosine x2 and then finally broke with Cardizem IV 03/02/24
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
HTN
Hyperlipidemia
BPH
prediabetes, HBA1C 5.9%
Holter monitor 12/25/22: Less than 1% burden PACs/PVCs, no arrhythmia
Echo 12/25/22: EF 55%, no significant valve disease
Echo 03/02/24: Technically difficult echo contrast utilized. Normal LV size and systolic function with no regional wall motion abnormalities and mild LVH. LV ejection fraction 60-65% with grade 1 diastolic dysfunction, trileaflet, mildly sclerotic
aortic valve without stenosis or AI. No TR. No MR. No pericardial effusion. Mildly dilated aortic root at the sinus of Valsalva measuring 3.8 cm
Plan:
-Weaning oxygen and using IS diligently
-Tele reviewed by me and no recurrence of AVNRT. AVNRT on admission that failed to respond to adenosine 6 mg IV x2 doses and ultimately converted with Cardizem 20 mg IV x1 in the ER 03/02/24. Increasing arrhythmia burden on 03/03/24 that was not
responsive to BB or amiodarone, but was again responsive to the addition of Cardizem gtt at 5 mg/hr. If patient has recurrent AVNRT then would start with Cardizem IV.
-Currently tolerating Lopressor 25 mg BID. Patient was taking atenolol prior to admission.
-Patient is s/p CABG with GARCIA to LAD, SVG to OM and SVG to PDA 03/07/24.
-NSTEMI this admission and plan is for Plavix for 6 months
-LDL 71 and outpatient dose of atorvastatin increased to 80 mg daily
-Outpatient dose of amlodipine increased to 2.5 mg daily is on hold post-op
-Outpatient dose of lisinopril 20 mg daily is on hold post-op
-Carotid u/s 03/03/24 that showed less than 50% B/L ICA disease. CT chest 03/03/24 showed a subcentimeter focal opacity in the superior segment of the RLL that is probably peripheral mucoid impaction and endobronchial neoplasm considered less likely,
but cannot be definitively excluded. There is apparent focal ectasia of the left lower lobe pulmonary arterial branch as above. These findings could be further evaluated with follow-up contrast-enhanced CT of the chest in 3-6 months to evaluate for
stability or resolution. CXR without acute disease.
HPI: [facility] with palpitations and cardiology is consulted for SVT and elevated Troponin. Patient reports palpitations on and off for more than a year. Palpitations generally once a month and last for a few minutes. No known provocative
or palliative factors. Echo and Holter monitor 12/2022 reviewed above. Patient got up from bed to urinate last night and felt the palpitations feeling in his chest, but palpitations were more intense and did not resolve in a few minutes so patient
came to [facility] and initial ECG reviewed by me showed nonspecific ST changes, patient also in SVT with HR of 164 bpm. Patient was given adenosine 6 mg IV x1 without change and then given a second dose of adenosine 6 mg IV x1 with slowing of HR and
reportedly no underlying P waves and HR increased as adenosine faded. Patient then given Cardizem 20 mg IV x1 and patient spontaneously converted to SR. No chest pain. Initial Troponin was undetectable and then up to 1.42 and then 3.94. Patient with
fatigue and SEQUEIRA recently, but no chest pain.
Progress Note - In Home Aide
Subjective
Date of Service: March 09, 2024
He feels well
Objective
Labs:
03/09/24 05:25
03/09/24 05:25
Labs
Hgb 11.1 g/dL (13.0-18.0) L 03/09/24 05:25
Hct 32.8 % (39.0-52.0) L 03/09/24 05:25
Plt Count 128 10^3/uL (130-400) L 03/09/24 05:25
PT 14.9 Sec (11.4-14.6) H 03/07/24 12:48
INR 1.19 03/07/24 12:48
APTT 33.7 Sec (23.4-35.0) 03/07/24 12:48
Sodium 133 mmol/L (135-145) L 03/09/24 05:25
Potassium 4.2 mmol/L (3.5-5.1) 03/09/24 05:25
BUN 24 mg/dl (9-20) H 03/09/24 05:25
Creatinine 0.9 mg/dL (0.7-1.3) 03/09/24 05:25
Glucose 119 mg/dl (70-99) H 03/09/24 05:25
Vital Signs and I&O:
Vital Signs
Temp Pulse Resp BP Pulse Ox
98.2 F 76 18 133/81 92
03/09/24 08:00 03/09/24 08:00 03/09/24 08:00 03/09/24 05:30 03/09/24 08:00
Vital Signs
Temp Pulse Resp BP Pulse Ox
98.2 F 76 18 133/81 92
03/09/24 08:00 03/09/24 08:00 03/09/24 08:00 03/09/24 05:30 03/09/24 08:00
Intake & Output
03/07/24 03/08/24 03/09/24 03/10/24
06:59 06:59 06:59 06:59
Intake Total 1046.7 / 1069.0 1559.5 / 1559.5 480 / 480
Output Total 350 / 350 1285 / 1290 940 / 940
Balance -350 / -350 -238.3 / -221.0 619.5 / 619.5 480 / 480
Physical Exam
Physical Exam
GEN: NAD. AAOx3
HEENT: MMM
LUNGS: Oxygen at 4 L NC. No audible wheeze
CV: SR on tele
ABD: ND
EXT: No edema B/L
NEURO: Gross non-focal
SKIN: No rash
[2024-03-09] MEDS: LASIX 40 MG IV (09:57)
[2024-03-09] MEDS: KCL 20 MEQ PO (09:57)
[2024-03-09] MEDS: FLEXERIL 5 MG PO (09:57)
--- NOTE | 2024-03-09 11:58 | PTCARENOTE ---
Voiding frequently after receiving IV lasix. Lt pleural chest tube also removed at this time. Pt tolerated w/o issue. VSS. Assessment unchanged from prior.
[2024-03-09] MEDS: NSS IV (13:12)
[2024-03-09] MEDS: TYLENOL PO (13:57)
[2024-03-09] MEDS: LIPITOR 80 MG PO (15:27)
--- NOTE | 2024-03-09 16:07 | PTCARENOTE ---
Ambulating with RN w/o issue. Pain well managed. C/o second large soft BM today. Will advise to hold night time bowel regimen. VSS. Assessment unchanged from prior
[2024-03-09] MEDS: SENOKOT-S PO (16:15)
--- NOTE | 2024-03-09 20:00 | PTCARENOTE ---
Assumed care of the patient at 1900. Patient resting in bed, and son at bedside. Patient AOx3, calm, SR w/ 1st degree HB on the monitor rate in the 80's. AV wires present and insulated, VSS. Currently on 2LNC. Increased to 3LNC for SpO2 88%.
HRR on auscultation, trace generalized edema, DP pulses palpable. Lungs dim at the bases, SEQUEIRA when ambulating to the bathroom, IS encouraged. Abdomen obese, SNT, + BS. R groin puncture dressing CDI, midline sternal incision JUANCARLOS CDI, RSVG CDI.
Patient c/o some pain but stated it's 'not that bad.' Encouraged the patient to call as needed for PRN medication to manage his pain. See worklist for intervention data. Assessment of needs ongoing, patient settled back in bed after using the
bathroom, call fernandez within reach.
[2024-03-09] MEDS: CARDIZEM 10 MG IV (21:13)
[2024-03-09] MEDS: CARDIZEM 125 IV (21:13)
[2024-03-09] MEDS: FLOMAX 0.4 MG PO (21:15)
[2024-03-09 21:26] LABS: Ionized Calcium 1.11 mMOL/L (1.15-1.33)
--- NOTE | 2024-03-09 21:30 | PTCARENOTE ---
Patient's HR intermittently increasing to 130-140's while sitting in bed, no exertional activity. Denies symptoms. PA made aware, Diltiazem gtt ordered. 10mg diltiazem IVP given before initiating drip. Patient desatting to 89%, NC increased to 5LPM.
Electrolytes ordered, Ca 1.11, repletion ordered and administered.
[2024-03-09 21:40] LABS: Blood Urea Nitrogen 30 mg/dl (9-20); Calcium 8.6 mg/dl (8.4-10.2); Carbon Dioxide 27 mmol/L (22-30); Chloride 97 mmol/L (98-107); Estimated Creatinine Clearance 95 ml/min; Glucose 131 mg/dl (70-99); Magnesium 2.2 mg/dl (1.6-2.3); Potassium 4.4 mmol/L (3.5-5.1); Sodium 132 mmol/L (135-145); eGFR > 60.00
[2024-03-09] MEDS: CALCIUM GLUCONATE 130 MG IV (21:48)
[2024-03-10] VITALS (18 sets, daily range): BP systolic 75–122; BP diastolic 45–69; PULSE 73; O2SAT 90–95; BMI 35.9
--- NOTE | 2024-03-10 | PTCARENOTE ---
Patient's HR stable on Cardizem gtt. Sleeping between care. VSS, no change in assessment. OOB to bathroom PRN.
--- NOTE | 2024-03-10 04:00 | PTCARENOTE ---
No change to assessment. Patient labs drawn, cardizem gtt maintained, 5LNC. VSS, no acute complaints. Patient denies pain. Assessment of needs ongoing, call fernandez within reach.
[2024-03-10 05:05] LABS: Hemoglobin 10.9 g/dL (13.0-18.0); Mean Corp Hgb Conc. 34.1 g/dL (33.0-37.0); Mean Corpuscular Hgb 31.9 pg (27.0-31.0); Mean Corpuscular Volume 93.6 fL (80.0-94.0); Mean Platelet Volume 10.7 fL (7.4-10.4); Platelet Count 137 10^3/uL (130-400); Red Blood Cell Count 3.42 10^6/uL (4.70-6.10); Red Cell Dist. Width 13.5 % (11.5-14.5); White Blood Cell Count 9.2 10^3/uL (4.8-10.8)
[2024-03-10 05:19] LABS: Blood Urea Nitrogen 30 mg/dl (9-20); Calcium 9.3 mg/dl (8.4-10.2); Carbon Dioxide 31 mmol/L (22-30); Chloride 97 mmol/L (98-107); Estimated Creatinine Clearance 86 ml/min; Glucose 114 mg/dl (70-99); Magnesium 2.3 mg/dl (1.6-2.3); Potassium 4.6 mmol/L (3.5-5.1); Sodium 133 mmol/L (135-145); eGFR > 60.00
--- NOTE | 2024-03-10 05:40 | W.PN.CT ---
Today's Communication / Plan
-
-pod #3
-several episodes of SVT 140s last night- resolved after giving iv Cardizem bolus and drip. Currently, on Cardizem iv @5. Consider switching to po Cardizem
-repleted Ca
-wean off O2 as tolerated - pOx 92-93 on 2L
-diuresed with 20 iv Lasix on 03/09 (uo unknown)-continue
-current meds (ASA, Plavix, Lipitor, Lopressor 25 bid, Protonix)
-encourage IS, OOB, ambulate
Assessment / Plan
-
- NSTEMI/ mv-CAD - s/p on pump Cabg x3 (Miranda - lad, ao-svg-om, svg -pda [y-graft off svg-om]); RF maze with [facility]; LAAL #[address] Schwartz on 03/07/24, pod #3
- Intraop PRESTON: preserved ef pre and post revasc; [place] without clot, completely occluded and no flow post clip
- PSVT, AVNRT -failed to respond to adenosine 6 mg IV x2 doses and ultimately converted with Cardizem 20 mg IV x1 on 03/02/24
- 1st degree AVB preop
- HTN
- Hyperlipidemia
- BPH
- Prediabetes, HBA1C 5.9%
- Holter monitor 12/25/22: Less than 1% burden PACs/PVCs, no arrhythmia
- Echo 03/02/24: Technically difficult echo contrast utilized. Normal LV size and systolic function with no regional wall motion abnormalities and mild LVH. LV ejection fraction 60-65% with grade 1 diastolic dysfunction, trileaflet, mildly
sclerotic aortic valve without stenosis or AI. No TR. No MR. No pericardial effusion. Mildly dilated aortic root at the sinus of Valsalva measuring 3.8 cm
- Acute postop blood loss anemia - stable, no transfusion
- Acute postop thrombocytopenia
- Acute postop atelectasis
- Acute postop hypovolemia with subsequent hypervolemia
- SVT episodes 140s- resolved after 10 mg iv Cardizem bolus and drip @5
Discussed patient care with: Nursing and Care Team
Subjective
Procedure
- s/p on pump Cabg x3 (Miranda - lad, ao-svg-om, svg -pda [y-graft off svg-om]); RF maze with [facility]compass; LAAL #[address] Schwartz on 03/07/24
-
Date of Service: March 10, 2024
Objective Data
-
Lab Results
03/10/24 04:30
03/10/24 04:30
PT 14.9 Sec (11.4-14.6) H 03/07/24 12:48
INR 1.19 03/07/24 12:48
APTT 33.7 Sec (23.4-35.0) 03/07/24 12:48
Vital Signs
Vital Signs
Temp Pulse Resp BP Pulse Ox
98.3 F 64 20 103/67 93
03/10/24 04:00 03/10/24 05:00 03/10/24 04:00 03/10/24 04:00 03/10/24 04:15
CT Intake/Output/Weight
03/09/24 03/09/24 03/10/24
06:59 18:59 06:59
Intake Total 580 / 1559.5 840 / 970 130 / 970
Output Total 690 / 940 10 / 210 200 / 210
Balance -110 / 619.5 830 / 760 -70 / 760
SaO2: 93
[2024-03-10] MEDS: TYLENOL 1000 MG PO ×3 (06:04→20:23)
--- NOTE | 2024-03-10 07:45 | PTCARENOTE ---
Received pt from inspector metal can RN; pt AAOx3 and resting comfortably in chair; NSR with 1st degree AVB and VSS; Cardizem drip infusing see flow sheet for details; Epicardial A/V wires set to AAI 50/16/0.4 and no pacing noted; Lungs diminished; Room air
pulse ox 86 % pt placed back on 2L O2; positive bowel sounds; pt voiding yellow urine; weak lower extremity pulses; trace generalized edema noted; surgical sites C/D/I; see nursing documentation for further details.
[2024-03-10] MEDS: MAGNESIUM OXIDE 500 MG PO ×2 (08:15→20:23)
[2024-03-10] MEDS: NEURONTIN 100 MG PO ×2 (08:15→15:02)
[2024-03-10] MEDS: LOW STRENGTH ASPIRIN 81 MG PO (08:15)
[2024-03-10] MEDS: PLAVIX 75 MG PO (08:15)
[2024-03-10] MEDS: BACTROBAN 2% OINTMENT 1 APPLIC NASAL ×2 (08:15→20:22)
[2024-03-10] MEDS: PROTONIX 40 MG PO (08:15)
[2024-03-10] MEDS: LASIX 40 MG PO ×2 (08:19→15:02)
[2024-03-10] MEDS: SENOKOT-S PO (08:19)
[2024-03-10] MEDS: LOPRESSOR PO (09:55)
[2024-03-10] MEDS: CARDIZEM CD 120 MG PO (09:55)
[2024-03-10] MEDS: NSS IV (10:07)
--- NOTE | 2024-03-10 11:12 | W.PN.CARDCBS ---
Today's Communication / Plan
-
Had more SVT overnight. Continue Cardizem 120 daily with metoprolol.
Continue aspirin and Plavix.
Will continue diuresis. Creat normal
Overall doing well.
Impression / Plan
-
PCP: Dr. Cecille Canales at [facility]
Cardiology: scheduled to see Dr. Frank as a new patient 03/31/24
Impression:
CAD
s/p NSTEMI peak Troponin 5.120 03/02/24
MV CAD by cath 03/02/24
s/p CABG with GARCIA to LAD, SVG to OM and SVG to PDA 03/07/24
PSVT, AVNRT
AVNRT unresponsive to adenosine x2 and then finally broke with Cardizem IV 03/02/24
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
HTN
Hyperlipidemia
BPH
prediabetes, HBA1C 5.9%
Holter monitor 12/25/22: Less than 1% burden PACs/PVCs, no arrhythmia
Echo 12/25/22: EF 55%, no significant valve disease
Echo 03/02/24: Technically difficult echo contrast utilized. Normal LV size and systolic function with no regional wall motion abnormalities and mild LVH. LV ejection fraction 60-65% with grade 1 diastolic dysfunction, trileaflet, mildly sclerotic
aortic valve without stenosis or AI. No TR. No MR. No pericardial effusion. Mildly dilated aortic root at the sinus of Valsalva measuring 3.8 cm
Plan:
-Weaning oxygen and using IS diligently
-Had more SVT overnight. Now on oral Cardizem. Will continue oral Cardizem as outpatient.
-Patient is s/p CABG with GARCIA to LAD, SVG to OM and SVG to PDA 03/07/24.
-Continue Lasix
-NSTEMI this admission and plan is for Plavix for 6 months
-LDL 71 and outpatient dose of atorvastatin increased to 80 mg daily
-DC amlodipine
-Outpatient dose of lisinopril 20 mg daily is on hold post-op
-Carotid u/s 03/03/24 that showed less than 50% B/L ICA disease. CT chest 03/03/24 showed a subcentimeter focal opacity in the superior segment of the RLL that is probably peripheral mucoid impaction and endobronchial neoplasm considered less likely,
but cannot be definitively excluded. There is apparent focal ectasia of the left lower lobe pulmonary arterial branch as above. These findings could be further evaluated with follow-up contrast-enhanced CT of the chest in 3-6 months to evaluate for
stability or resolution. CXR without acute disease.
HPI: Patient came to [facility] with palpitations and cardiology is consulted for SVT and elevated Troponin. Patient reports palpitations on and off for more than a year. Palpitations generally once a month and last for a few minutes. No known provocative
or palliative factors. Echo and Holter monitor 12/2022 reviewed above. Patient got up from bed to urinate last night and felt the palpitations feeling in his chest, but palpitations were more intense and did not resolve in a few minutes so patient
came to [facility] and initial ECG reviewed by me showed nonspecific ST changes, patient also in SVT with HR of 164 bpm. Patient was given adenosine 6 mg IV x1 without change and then given a second dose of adenosine 6 mg IV x1 with slowing of HR and
reportedly no underlying P waves and HR increased as adenosine faded. Patient then given Cardizem 20 mg IV x1 and patient spontaneously converted to SR. No chest pain. Initial Troponin was undetectable and then up to 1.42 and then 3.94. Patient with
fatigue and SEQUEIRA recently, but no chest pain.
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
Subjective
Date of Service: March 10, 2024
Had more SVT overnight. Now on oral Cardizem.
Objective
Labs:
03/10/24 04:30
03/10/24 04:30
Labs
Hgb 10.9 g/dL (13.0-18.0) L 10/04/24 04:30
Hct 32.0 % (39.0-52.0) L 03/10/24 04:30
Plt Count 137 10^3/uL (130-400) 03/10/24 04:30
PT 14.9 Sec (11.4-14.6) H 03/07/24 12:48
INR 1.19 03/07/24 12:48
APTT 33.7 Sec (23.4-35.0) 03/07/24 12:48
Sodium 133 mmol/L (135-145) L 03/10/24 04:30
Potassium 4.6 mmol/L (3.5-5.1) 03/10/24 04:30
BUN 30 mg/dl (9-20) H 03/10/24 04:30
Creatinine 1.0 mg/dL (0.7-1.3) 03/10/24 04:30
Glucose 114 mg/dl (70-99) H 03/10/24 04:30
Vital Signs and I&O:
Vital Signs
Temp Pulse Resp BP Pulse Ox
98.2 F 72 20 98/58 94
03/10/24 07:49 03/10/24 09:15 03/10/24 07:49 03/10/24 08:17 03/10/24 09:32
Vital Signs
Temp Pulse Resp BP Pulse Ox
98.2 F 72 20 98/58 94
03/10/24 07:49 03/10/24 09:15 03/10/24 07:49 03/10/24 08:17 03/10/24 09:32
Intake & Output
03/08/24 03/09/24 03/10/24 03/11/24
06:59 06:59 06:59 06:59
Intake Total 1046.7 / 1069.0 1559.5 / 1559.5 970 / 970 20
Output Total 1285 / 1290 940 / 940 210 / 210 200 / 200
Balance -238.3 / -221.0 619.5 / 619.5 760 / 760 -180 / -180
Physical Exam
Physical Exam
GEN: No distress, awake, Ox3
HEENT: supple, anicteric, mmm
LUNGS: CTA, no wheezes/rales
CV: Reg, S1/S2, no rub
ABD: soft, BS+, NT/ND
EXT: No edema
NEURO: Gross non-focal
SKIN: No rash
--- NOTE | 2024-03-10 12:14 | PTCARENOTE ---
Assessment unchanged; NSR with 1st Degree AVB on monitor and VSS; family at bedside and pt resting comfortably in chair.
--- NOTE | 2024-03-10 13:49 | CM ---
CM following for DC planning needs.
Patient POD#[address]urg[address]
Met w/ patient at bedside. Pt. reports that he is feeling well. He is hopeful for DC over the weekend.
DC plan- anticipated for home w/ CT Transitional Care RN.
CM to follow.
--- NOTE | 2024-03-10 16:05 | PTCARENOTE ---
Family at bedside and pt ambulated in hallways; NSR with 1st Degree AVB on monitor and VSS; assessment unchanged.
[2024-03-10] MEDS: FLEXERIL 5 MG PO (16:38)
[2024-03-10] MEDS: LIPITOR 80 MG PO (16:38)
--- NOTE | 2024-03-10 20:00 | PTCARENOTE ---
assumed care of pt from previous RN. pt A&Ox4, resting in bed at time of assessment. SR w/ 1st degree AVB, occasional PACs on tele-monitor. temp epicardial A/V wires insulated. POX 92% on 2 L NC. abd s/n, +BS. voiding clear, yellow urine. all
surgical sites stable. PIV intact. see worklist for complete nursing assessment, interventions, VS, and I&Os.
[2024-03-10] MEDS: LOPRESSOR 25 MG PO (20:22)
[2024-03-10] MEDS: KCL 20 MEQ PO (20:23)
[2024-03-10] MEDS: FLOMAX 0.4 MG PO (20:23)
[2024-03-10] MEDS: SENOKOT-S 1 TABLET PO (20:23)
[2024-03-10] MEDS: NEURONTIN PO (22:24)
[2024-03-10] MEDS: BENADRYL 25 MG PO (22:32)
[2024-03-11] VITALS (7 sets, daily range): BP systolic 111–135; BP diastolic 71–81; PULSE 82; O2SAT 94–95; BMI 35.7
--- NOTE | 2024-03-11 | PTCARENOTE ---
assessment remains unchanged. VSS. no c/o pain at this time.
--- NOTE | 2024-03-11 04:15 | PTCARENOTE ---
assessment remains unchanged. VSS. AM labs collected and sent.
[2024-03-11 04:32] LABS: Hematocrit 32.3 % (39.0-52.0); Hemoglobin 11.3 g/dL (13.0-18.0); Mean Corpuscular Hgb 32.9 pg (27.0-31.0); Mean Corpuscular Volume 94.2 fL (80.0-94.0); Mean Platelet Volume 10.4 fL (7.4-10.4); Platelet Count 142 10^3/uL (130-400); Red Blood Cell Count 3.43 10^6/uL (4.70-6.10); Red Cell Dist. Width 13.3 % (11.5-14.5); White Blood Cell Count 8.4 10^3/uL (4.8-10.8)
[2024-03-11 04:42] LABS: Blood Urea Nitrogen 26 mg/dl (9-20); Calcium 8.7 mg/dl (8.4-10.2); Carbon Dioxide 29 mmol/L (22-30); Chloride 99 mmol/L (98-107); Estimated Creatinine Clearance 94 ml/min; Glucose 115 mg/dl (70-99); Magnesium 2.2 mg/dl (1.6-2.3); Potassium 4.4 mmol/L (3.5-5.1); Sodium 135 mmol/L (135-145); eGFR > 60.00
--- NOTE | 2024-03-11 06:05 | W.PN.CT ---
Today's Communication / Plan
-
-pod #4
-no significant issues overnight
-intermittent brief 3-9 beat SVTs overnight (asymptomatic) -continue Cardizem and Lopressor. No bradycardia or pauses
-diuresed with 40 bid Lasix on 03/10 (UO 1225/2125 in 12/24 hrs)
-labs are stable
-wean off O2 - pOx 94% on 2L
-ambulate
-possible d/c
Assessment / Plan
-
- NSTEMI/ mv-CAD - s/p on pump Cabg x3 (Miranda - lad, ao-svg-om, svg -pda [y-graft off svg-om]); RF maze with [facility]compass; LAAL #[address] Schwartz on 03/07/24, pod #4
- Intraop PRESTON: preserved ef pre and post revasc; [place] without clot, completely occluded and no flow post clip
- PSVT, AVNRT -failed to respond to adenosine 6 mg IV x2 doses and ultimately converted with Cardizem 20 mg IV x1 on 03/02/24
- 1st degree AVB preop
- HTN
- Hyperlipidemia
- BPH
- Prediabetes, HBA1C 5.9%
- Holter monitor 12/25/22: Less than 1% burden PACs/PVCs, no arrhythmia
- Echo 03/02/24: Technically difficult echo contrast utilized. Normal LV size and systolic function with no regional wall motion abnormalities and mild LVH. LV ejection fraction 60-65% with grade 1 diastolic dysfunction, trileaflet, mildly
sclerotic aortic valve without stenosis or AI. No TR. No MR. No pericardial effusion. Mildly dilated aortic root at the sinus of Valsalva measuring 3.8 cm
- Acute postop blood loss anemia - stable, no transfusion
- Acute postop thrombocytopenia
- Acute postop atelectasis
- Acute postop hypovolemia with subsequent hypervolemia
- SVT episodes 140s- resolved after 10 mg iv Cardizem bolus and drip @5
Discussed patient care with: Nursing and Care Team
Subjective
Procedure
- s/p on pump Cabg x3 (Miranda - lad, ao-svg-om, svg -pda [y-graft off svg-om]); RF maze with Encompass; LAAL #[address] Schwartz on 03/07/24
-
Date of Service: March 11, 2024
Objective Data
-
Lab Results
03/11/24 04:15
03/11/24 04:15
PT 14.9 Sec (11.4-14.6) H 03/07/24 12:48
INR 1.19 03/07/24 12:48
APTT 33.7 Sec (23.4-35.0) 03/07/24 12:48
Vital Signs
Vital Signs
Temp Pulse Resp BP Pulse Ox
98.5 F 75 16 119/71 94
03/11/24 00:00 03/11/24 04:08 03/11/24 04:00 03/11/24 04:08 03/11/24 04:08
CT Intake/Output/Weight
03/10/24 03/10/24 03/11/24
06:59 18:59 06:59
Intake Total 130 / 970 20
Output Total 200 / 210 900 / 2125 1225 / 2125
Balance -70 / 760 -880 / -2105 -1225 / -2105
SaO2: 94
Physical Exam
-
General: Awake and AOx3
Cardiovascular: Regular rate & rhythm, No Murmurs and No Rub
Respiratory: Decreased Breath Sounds
Sternum: Stable
Incision: Clean, Dry and Dressing Intact
Extremities: Other (trace edema b/l)
[2024-03-11] MEDS: TYLENOL 1000 MG PO (06:13)
[2024-03-11] MEDS: PLAVIX 75 MG PO (08:31)
[2024-03-11] MEDS: CARDIZEM CD 180 MG PO (08:31)
[2024-03-11] MEDS: NEURONTIN 100 MG PO (08:31)
[2024-03-11] MEDS: PROTONIX 40 MG PO (08:32)
[2024-03-11] MEDS: LOW STRENGTH ASPIRIN 81 MG PO (08:32)
[2024-03-11] MEDS: MAGNESIUM OXIDE 500 MG PO (08:32)
[2024-03-11] MEDS: LASIX 40 MG PO (08:33)
[2024-03-11] MEDS: BACTROBAN 2% OINTMENT 1 APPLIC NASAL (08:33)
[2024-03-11] MEDS: TOPROL XL 25 MG PO (08:33)
[2024-03-11] MEDS: NSS IV (08:34)
[2024-03-11] MEDS: SENOKOT-S PO (08:34)
--- NOTE | 2024-03-11 08:45 | PTCARENOTE ---
Assumed care of patient at 0700. Pt is awake, alert, and oriented. No complaints of pain. Pt remains SR with first degree AV block, HR 70's. BP 111/73 MAP 85. Epicardial AV wires in place, insulated. Pulse oximetry 93% on room air. Pt achieving 1500
with IS, continued use encouraged. Pt tolerating diet. Voiding without issue. Midsternal incision approximated and JUANCARLOS. Right leg incision and right groin puncture approximated and ROCK LATHER. Pt currently resting comfortably OOB in chair.
--- NOTE | 2024-03-11 09:49 | W.DCSUMMARY ---
Discharge Summary
Discharge Data
Date of Admission: 03/02/24
Date of Discharge: 03/11/24
Total time spent discharging patient (in min): 35
-
Pending Results: No
Hospital Course
Primary care physician:
Dr. Cecille Canales
Outpatient manager of financial reporting:
Dr. frank
Inpatient consultants:
DCA, Advertising Account Executive, CT surgery
Procedures:
1. Coronary artery bypass x 3, maze, left atrial appendage clip
Primary Diagnosis:
1. Critical coronary artery disease, non-STEMI
Secondary Diagnoses:
1. Supraventricular tachycardia
2. Hypertension
3. Hyperlipidemia
4. Hypertension
5. Urinary retention secondary to benign prostatic hypertrophy
HPI: 69-year-old male presented to [place] emergency room on 03/02. Found to be in SVT and ruled in for non-STEMI. Left heart cath revealed left main multivessel coronary disease so CT surgery was consulted. He was taken to the CV OR on 03/[address] Schwartz.
Hospital course: Patient was admitted to [facility] on 03/02. Left heart cath revealed multivessel disease and CT surgery was consulted. Preoperative workup was started and patient was taken to the CV OR on 03/07. Postoperatively he
returned to the CVICU on Levophed, insulin, and Precedex infusions. Precedex was weaned off and patient was extubated by 1612. Overnight patient's Levophed was weaned off. On 03/08 postoperative day 1, patient was D lined and was started on
beta-blockers. Amiodarone was discontinued and patient's Rodriguez was removed. On 03/09 postoperative day #2, patient was diuresed with 40 mg of IV Lasix pleural chest tube was removed and was weaned down to 2 L nasal cannula. On 03/10 postoperative
day #3 patient was started on a Cardizem drip overnight due to burst of SVT. Later in the day he was transitioned to oral diltiazem. He was also started on Lasix 40 mg p.o. twice daily. On 10 postoperative day #4, patient's Lopressor was
decreased to 25 daily and Cardizem was increased to 180 mg daily. He was deemed stable for discharge. 2 view chest x-ray remained stable.
Home medication changes:
See below
Discharge Plan
-
Patient Disposition: Home (Routine Discharge)
Discharge Diagnosis/Procedures: CABG x3, MAZE, LAAC
Condition: Good
Diet: 2 Gram Sodium and Restrict fluids to 64 oz
Activity: No strenuous activity
Driving Restrictions: No driving for 2 weeks
Bathing Restrictions: OK to Shower
Blood Work: BMP in 5 days
Other Services: Cardiac Rehab
Specialty Instructions: Weigh Daily- Call MD for wt gain/loss 3 lbs overnight/5 lbs in 1 week
Activity Restrictions/Additional Instructions:
ACTIVITY:
-No strenuous activity: no heavy lifting, pushing, pulling anything over 15 pounds for one month
-continue to use stairs as tolerated
DRIVING RESTRICTIONS:
-No driving for one month or until approved by your surgeon
WOUND CARE:
-Shower daily. Use soap & water.
-No lotions, creams or powders on incision area.
DIET:
-continue a low fat/low cholesterol diet.
-IF you are diabetic, continue carb controlled diet.
CARDIAC REHAB:
-Please make appointment to start in 5-6 weeks with your local hospital program. (See Cardiac Rehabilitation Discharge Booklet).
SPECIALTY INSTRUCTIONS:
-Weigh yourself daily. Call your physician for any weight gain/loss of 3 lbs overnight or 5 lbs in one week.
-REPORT any clicking noise or uneven appearance of your sternum to your surgeon immediately.
-If you smoke, you are instructed to quit. The [place] smoking hotline phone number is [phone]
Referrals:
CT Transitional Care Nurse [Outside]
(
The Cardiothoracic Transitional Care Nurse will call you to set up a visit in 1-2 days.)
[facility] [Outside] - 04/19/24 8:30 am
(Cardiac Rehab Orientation appointment is on 04/19/2024 at 8:30 am
The Cardiac Rehab gym is located on the first floor of the [facility].)
Tee Frank MD [Active] - 04/13/24 11:00 am (* your appt on 03/[address] Frank was cancelled*)
Chito Schwartz MD [Active] - 04/03/24 10:15 am
Cecille Canales DO [Family Provider] -
Prescriptions:
New
cyclobenzaprine 10 mg Tablet
5 mg PO Q8HPRN PRN (Reason: muscle spasm) Qty: 30 0RF
atorvastatin 80 mg Tablet
80 mg PO QPM Qty: 30 1RF
acetaminophen 325 mg Tablet
650 mg PO Q4HPRN PRN (Reason: mild pain,headache,temp >101F ) Qty: 0 0RF
diltiazem HCl 180 mg Capsule,Extended Release 24hr
180 mg PO DAILY Qty: 60 1RF
clopidogrel 75 mg Tablet
75 mg PO DAILY Qty: 90 3RF
aspirin 81 mg Tablet,Chewable
81 mg PO DAILY Qty: 0 0RF
furosemide 40 mg Tablet
40 mg PO DAILY Qty: 7 0RF
pantoprazole 40 mg Tablet,Delayed Release (Dr/Ec)
40 mg PO DAILY Qty: 90 3RF
gabapentin 100 mg Capsule
100 mg PO TID PRN (Reason: post op pain) Qty: 30 0RF
metoprolol succinate 25 mg Tablet Extended Release 24 Hr
25 mg PO DAILY Qty: 60 0RF
Continued
tamsulosin 0.4 mg Capsule
0.4 mg PO HS
testosterone 20.25 mg/1.25 gram (1.62 %) gel in metered-dose pump
2 pump topical DAILY
Patient Comments:
03/02/2024: APPLY TO SHOULDER, UPPER ARMS OR ABDOMEN TRANSDERMAL ONCE A DAY
Discontinued
atorvastatin 20 mg Tablet
20 mg PO HS
lisinopril 20 mg Tablet
20 mg PO DAILY
atenolol 25 mg Tablet
25 mg PO DAILY
amlodipine 2.5 mg Tablet
2.5 mg PO DAILY
Discharge Orders:
Discharge Patient (As Directed); Ordered 03/11/24
Ordered By: Kaycee Chambers
Care Plan Goals
Care Plan Goals:
Problem: Readiness for enhanced knowledge related to diagnosis and treatment plan
Goal: Understand your diagnosis and treatment plan needs, including medications if applicable.
Instructions: Know your diagnosis, underlying causes and treatment plan options, including medications if applicable. Consult with your health care team to learn about your diagnosis and treatment plan, including medications if applicable.
Discharge Date and Time
Print Language: BULGARIAN
--- NOTE | 2024-03-11 11:04 | PTCARENOTE ---
Pt worked with cardiac rehab, steps completed. 2 view x-ray done. Epicardial AV wires cut with CT STANDPIPE TENDERBessie. Pt now showering.
--- NOTE | 2024-03-11 12:00 | PTCARENOTE ---
Discharge instructions reviewed with pt and pt's . Questions addressed. No further questions at this time. Peripheral IV removed. Pt stable at discharge.
== END 2024-03-11 12:24 | disposition home or self-care (01) | DRG 234 ==
LOC: CVICU 09:08
PROVIDERS: Anesthesiology; Internal Medicine Cardiovascular Disease; Internal Medicine Interventional Cardiology; Nurse Practitioner Adult Health; Physician Assistant Medical; ADMITTING PHYSICIAN Internal Medicine Cardiovascular Disease; ATTENDING PHYSICIAN Thoracic Surgery (Cardiothoracic Vascular Surgery); CONSULT PHYSICIAN Internal Medicine; CONSULT PHYSICIAN Thoracic Surgery (Cardiothoracic Vascular Surgery); EMERGENCY PHYSICIAN Emergency Medicine; FAMILY PHYSICIAN Family Medicine
PROC: B2151ZZ Fluoroscopy of Left Heart using Low Osmolar Contrast (ICD-10-PCS; 2024-03-02)
PROC: B2111ZZ Fluoroscopy of Multiple Coronary Arteries using Low Osmolar Contrast (ICD-10-PCS; 2024-03-02)
PROC: 4A023N7 Measurement of Cardiac Sampling and Pressure, Left Heart, Percutaneous Approach (ICD-10-PCS; 2024-03-02)
PROC: B24BZZ4 Ultrasonography of Heart with Aorta, Transesophageal (ICD-10-PCS; 2024-03-07)
PROC: 021109W Bypass Coronary Artery, Two Arteries from Aorta with Autologous Venous Tissue, Open Approach (ICD-10-PCS; 2024-03-07)
PROC: 02L70CK Occlusion of Left Atrial Appendage with Extraluminal Device, Open Approach (ICD-10-PCS; 2024-03-07)
PROC: 02100Z9 Bypass Coronary Artery, One Artery from Left Internal Mammary, Open Approach (ICD-10-PCS; 2024-03-07)
PROC: 02580ZZ Destruction of Conduction Mechanism, Open Approach (ICD-10-PCS; 2024-03-07)
PROC: 06BP4ZZ Excision of Right Saphenous Vein, Percutaneous Endoscopic Approach (ICD-10-PCS; 2024-03-07)
PROC: 5A1221Z Performance of Cardiac Output, Continuous (ICD-10-PCS; 2024-03-07)
DX: I21.4 Non-ST elevation (NSTEMI) myocardial infarction (principal); I47.19 Other supraventricular tachycardia; D62 Acute posthemorrhagic anemia; J98.11 Atelectasis; I25.10 Atherosclerotic heart disease of native coronary artery without angina pectoris; I10 Essential (primary) hypertension; E78.00 Pure hypercholesterolemia, unspecified; N40.1 Benign prostatic hyperplasia with lower urinary tract symptoms; E66.9 Obesity, unspecified; R33.8 Other retention of urine; D69.59 Other secondary thrombocytopenia; E87.70 Fluid overload, unspecified; E86.1 Hypovolemia; R73.03 Prediabetes; Z11.52 Encounter for screening for COVID-19; Z68.35 Body mass index [BMI] 35.0-35.9, adult; Z79.899 Other long term (current) drug therapy; Z82.49 Family history of ischemic heart disease and other diseases of the circulatory system; Z98.1 Arthrodesis status
CPT/HCPCS: 71045; 71046; 71250; 80048; 80053; 80061; 81003; 81015; 82150; 82330; 82565; 82805; 82810; 82947; 82962; 83036; 83690; 83735; 84132; 84302; 84443; 84484; 84520; 85014; 85018; 85025; 85027; 85049; 85610; 85730; 86850; 86900; 86901; 86920; 87811; 93005; 93306; 93312; 93320; 93325; 93458; 93650; 93880; 94002; 96374; 96375; 99152; 99153; 99291; C1713; C1760; C1894; G0423; J0153; Q9950; Q9967

== ENCOUNTER 2024-04-02 21:11 | Inpatient (IN) | payer MEDICARE, OTHER, SELFPAY ==
[2024-04-02 17:45] VITALS: BP 152/95
[2024-04-02 18:02] LABS: Urine Albumin Negative (Neg - Trace); Urine Bilirubin Negative (Negative); Urine Character Clear (Clear); Urine Color Yellow; Urine Glucose Negative (Negative); Urine Ketone Negative (Negative); Urine Leukocyte Negative (Negative); Urine Nitrite Negative (Negative); Urine Occult Blood Negative (Negative); Urine Urobilinogen Negative (Neg - 1+)
--- NOTE | 2024-04-02 18:20 | ED.GENMED ---
History of Present Illness
General
Chief Complaint: Cold/Flu/URI Symptoms
Source: patient and spouse
Time Seen by Provider: 04/02/24 18:01
History of Present Illness
History of Present Illness:
69-year-old male with past medical history of hypertension, hyperlipidemia, recent AL and status post CABG on March 07, czi-[id number] diabetes presenting to the emergency department for evaluation after he started experiencing chills and
rigors this afternoon and also slightly short of breath with light walking. Patient states that he has been doing very well postoperatively from his CABG and has been doing approximately 7-minute light walk and stairs without any difficulty but
today seem to get a little bit more 'short winded' than he had been. Patient did take his temperature when he started experiencing the chills and states it was 98.2 orally. He did not take any medications prior to arrival. There were no other
symptoms including chest pain, palpitations, diaphoresis, abdominal pain, nausea, vomiting, urinary symptoms or bowel changes. Patient does note that since his surgery he has had a light nonproductive cough but no hemoptysis. Patient is currently
on a daily 81 mg aspirin and Plavix which she reports good compliance with.
Past History
Past History
ED Past Medical History: HTN, Hypercholesterolemia, NIDDM and Other (Low testosterone, BPH)
ED Past Surgical History: Orthopedic (Cervical disc) and Other (Umbilical hernia repair)
Social History
Tobacco: Non-smoker
Alcohol: Occasional
Drug: None
Personal:
Living: with family
Employment: Employed
Family History
Family History: Other (Noncontributory)
Review of Systems
Review of Systems
All Other Systems: ROS reviewed and negative except as documented in HPI and ROS
Phy Exam
Physical Exam
Physical Exam:
GENERAL: Alert , in no apparent distress
HEAD: NCAT
EYE: clear conjunctiva
NECK: Supple
ENT: mmm.
CARDIAC: Regular rate and rhythm, borderline tachycardia .
LUNGS: Rhonchorous lung sounds anterior and posterior lung granados, seemingly more pronounced on the right, no acute respiratory distress, no tachypnea, speaking full sentences, no accessory muscle use
CHEST WALL: well healing surgical scar without any dehiscence nor surrounding erythema
ABDOMEN: Soft, without focal tenderness, no r/g, no cvat
NEUROLOGICAL: Alert and oriented
SKIN: Warm and dry, skin intact.
MUSCULOSKELETAL: No edema, well perfused.
PSYCH: Normal and appropriate interaction.
Scores
Heart Failure Risk
Heart Failure Risk Score: Not Applicable
Heart Score for Chest Pain Patients
STEMI patient?: Not applicable
Withdrawal Assessment of Alcohol
Withdrawal Assessment Completed?: Not applicable
Course
Orders/Labs/Results
Orders:
Orders
04/02/24 17:56
Urinalysis Reflex To Culture Urgent
Date Specimen was Collected: 04/02/24
Time Specimen was Collected: 17:55
04/02/24 18:15
Electrocardiogram (*1) Urgent
Reason for Study: Other
Other Reason for Exam: sepsis
EKG- Treatment ONCE
04/02/24 18:16
CT Chest Pe Study Urgent
Comment:
Reason For Exam: tachy, rigors, recent CABG
04/02/24 18:44
Complete Blood Count/With Diff Urgent
Lactic Acid Q4H
Comment: CANCEL 2nd LACTIC ACID IF 1st LACTIC ACID IS LESS THAN 2
Troponin I Urgent
Blood Culture Q30M
JERAMIE Source: Blood/Venous
Specimen Description:
04/02/24 19:04
Comprehensive Metabolic Panel Urgent
04/02/24 19:11
COVID-19 Antigen Urgent
Source: Nasal Swab
Influenza A+B Rapid Molecular Urgent
JERAMIE Source: Nasal Swab
Specimen Description:
04/02/24 19:36
0.9% Sodium Chloride 1000 ml [Nss] 1,000 ml IV BOLUS
04/02/24 20:19
CefTRIAXone [Rocephin] 1,000 mg IV NOW STA
Doxycycline [Vibramycin] 100 mg PO NOW STA
04/02/24 20:31
Blood Culture Q30M
JERAMIE Source: Blood/Venous
Specimen Description:
04/02/24 20:48
Admit/Transfer Patient As Directed
Co-Sign Provider:
Level of Care: Inpatient admission
Assign to:: Telemetry
Physician / Group: [email or web address]
Diagnosis: PNA presumed CAP. Sepsis. Acute hypoxic RI.
Reason for Telemetry: Other
Other Reason for Telemetry: sepsis
Date to Stop Telemetry: 04/04/24
Time to Stop Telemetry: 11:00
Reason for Hospitalization: PNA presumed CAP. Sepsis. Acute hypoxic RI
Expected length of stay greater than two midnights?: Yes
ELOS- Estimated Length of Stay in days: 3
I certify the patient meets the requirements for IP care: Yes
04/02/24 20:50
Code Status As Directed
Resuscitation Status: Full Code
04/02/24 22:00
Flush (0.9% Sodium Chloride) [Flush (Nss)] See Dose Instructions IV PER PROTOCOL
04/02/24 22:15
Lactic Acid Q4H
Comment: CANCEL 2nd LACTIC ACID IF 1st LACTIC ACID IS LESS THAN 2
04/04/24 11:00
DC Protocol for Telemetry ONCE
Abnormal Lab Results
04/02/24 04/02/24
18:44 19:04
WBC 4.4 L 10^3/uL
(4.8-10.8)
RBC 4.00 L 10^6/uL
(4.70-6.10)
Hgb 12.5 L g/dL
(13.0-18.0)
Hct 36.2 L %
(39.0-52.0)
MCH 31.3 H pg
(27.0-31.0)
Absolute Lymphs (auto) 0.3 L 10^3/uL
(1.2-3.4)
Neutrophils % 90.3 H %
(42.2-75.2)
Lymphocytes % 5.7 L %
(20.5-51.1)
Monocytes % 1.4 L %
(1.7-9.3)
Glucose 107 H mg/dl
(70-99)
Lactic Acid 2.4 H mmol/L
(0.7-2.0)
04/02/24 18:44
04/02/24 19:04
Vital Signs
Initial and Last Documented VS:
Initial Vital Signs
Temp Pulse Resp BP Pulse Ox
99.3 F 120 18 152/95 93
04/02/24 17:45 04/02/24 17:45 04/02/24 17:45 04/02/24 17:45 04/02/24 17:45
Last Documented Vital Signs
Temp Pulse Resp BP Pulse Ox
99.3 F 104 23 126/77 90
04/02/24 17:45 04/02/24 21:00 04/02/24 21:00 04/02/24 19:00 04/02/24 21:00
MDM/Problems Addressed
Differential Diagnosis Includes:
pneumonia, PE, UTI, atelectasis, bacteremia, viral syndrome
MDM/Problems Addressed:
69-year-old male presenting to the emergency department for evaluation after developing rigors and chills earlier this afternoon, symptoms now resolved however patient does still have some tachycardia. Notes nonproductive cough since surgery.
Currently anticoagulated on aspirin and Plavix which she has been taking as prescribed. No documented fevers today however patient is tachycardic here. He does note that he has been doing some very light exercise at home and today he did feel
little bit short winded which has not been the case for him since his surgery. Patient is overall in no acute distress. PE highly considered on differential given his extensive surgery. Patient has rhonchorous lung sounds of pneumonia also in
differential. CTA of the chest ordered. Patient otherwise currently stable. Disposition pending.
Chronic conditions affecting care: CAD
*Radiology
Radiology exam reviewed: radiology read reviewed
*Pulse Oximetry
Patient hypoxic: no
*Critical Care Note
Total Time (30-74mins, 75-104mins- exclusive of procedures): Not Applicable
Patient Management
Discussion with other providers: Hospitalist
Escalation/DeEscalation of care consider admission/obs:
Patient CT of the chest shows no evidence for pulmonary embolism however there is a left lower lobe pneumonia. Given patient's recent complex medical history combined with age I do feel it would be in patient's best interes to be admitted for close
monitoring and IV abx. Rocephin and doxy ordered. Hospitalist team is aware and is for continued evaluation and treatment.
ED Attending Note
-
Portions of this chart may have been created with voice recognition software.� Occasional wrong word or��sound alike� substitutions may have occurred due to the inherent limitations of voice recognition software.
Discharge Plan
Departure
Patient Disposition: Admit
Date of Disposition: 04/02/24
Time of Disposition: 20:25
Presentation/result/management discussed w/ accepting MD/DO: Hospitalist
Discharge Problem:
Pneumonia
Interventions
Interventions:
*Risk Screen - Suicide Last Done: 04/02/24 17:45
*General Assessment Last Done: 04/02/24 17:45
*Neglect/Abuse Screening Last Done: 04/02/24 17:45
ED- Fall Risk Assessment Last Done: 04/02/24 18:52
*ED COVID-19 Vaccine History Last Done: 04/02/24 18:33
ED- Pulmonary Assessment Last Done: 04/02/24 18:52
[2024-04-02 18:31] VITALS: BP 123/69
[2024-04-02 18:32] VITALS: BMI 35.3
[2024-04-02 18:53] LABS: % Basophils 0.7 % (0-2); % Eosinophils 1.4 % (0-6); % Immature Granulocytes 0.5 % (0-0.5); % Lymphocytes 5.7 % (20.5-51.1); % Monocytes 1.4 % (1.7-9.3); % Neutrophils 90.3 % (42.2-75.2); Absolute Eosinophils 0.1 10^3/uL (0-0.7); Absolute Lymphocytes 0.3 10^3/uL (1.2-3.4); Absolute Monocytes 0.1 10^3/uL (0.1-0.6); Hematocrit 36.2 % (39.0-52.0); Hemoglobin 12.5 g/dL (13.0-18.0); Mean Corp Hgb Conc. 34.5 g/dL (33.0-37.0); Mean Corpuscular Hgb 31.3 pg (27.0-31.0); Mean Corpuscular Volume 90.5 fL (80.0-94.0); Mean Platelet Volume 8.7 fL (7.4-10.4); Nucleated Red Blood Cells % 0 % (-); Platelet Count 178 10^3/uL (130-400); Red Cell Dist. Width 14.5 % (11.5-14.5); White Blood Cell Count 4.4 10^3/uL (4.8-10.8)
[2024-04-02 19:00] VITALS: BP 126/77
[2024-04-02 19:20] LABS: Troponin I < 0.012 ng/ml
[2024-04-02 19:28] LABS: ALT (SGPT) 27 U/L (0-50); AST (SGOT) 27 U/L (17-59); Albumin 4.1 g/dl (3.5-5.0); Alkaline Phosphatase 113 U/L (38-126); Blood Urea Nitrogen 18 mg/dl (9-20); Calcium 9.3 mg/dl (8.4-10.2); Carbon Dioxide 25 mmol/L (22-30); Chloride 101 mmol/L (98-107); Estimated Creatinine Clearance 94 ml/min; Glucose 107 mg/dl (70-99); Potassium 3.7 mmol/L (3.5-5.1); Sodium 138 mmol/L (135-145); Total Bilirubin 0.9 mg/dl (0.2-1.3); Total Protein 6.4 g/dl (6.3-8.2); eGFR > 60.00
[2024-04-02 19:34] LABS: Lactic Acid 2.4 mmol/L (0.7-2.0)
[2024-04-02 19:35] LABS: COVID-19 Antigen Negative (Negative)
[2024-04-02] MEDS: NSS 1000 IV (20:20)
[2024-04-02] MEDS: VIBRAMYCIN 100 MG PO (20:35)
[2024-04-02] MEDS: ROCEPHIN 1000 MG IV (20:35)
--- NOTE | 2024-04-02 20:45 | HPS.HSE ---
Family Physician
-
Family Physician: Cecille Canales DO
Chief Complaint
-
chills and rigors with SoB
History of Present Illness
HPI
69M HX recent VT and status post CABG on March 07, T2DM seen t ER for evaluation of chills and rigors.
- associated with mild sob with light exertion
- light nonproductive cough
ROS:
Denied CP , palpitations, diaphoresis, abdominal pain, nausea, vomiting, urinary symptoms or bowel changes.
Medical History
Past Medical History
Past Medical History: Reports CAD (CABG ), HTN, Hypercholesterolemia and NIDDM
Past Surgical History: Reports Cardiac (CABG March 07 2024 )
Social History
Tobacco: Non-smoker
Alcohol: Occasional
Personal:
Living: With Family
Family History
Family History: Not pertinent
Allergies / Home Medications
Allergies reflects when Allergies were last updated in [facility] [employer].
Home Medications with original date entered in [facility]
Allergy/Medication List:
Allergies
Allergy/AdvReac Type Severity Reaction Status Date / Time
No Known Allergies Allergy Verified 04/02/24 17:45
Home Medications
tamsulosin 0.4 mg capsule 0.4 mg PO HS Urinary Issue 03/02/24
testosterone 2 pump topical DAILY Hormonal Agent 03/02/24
acetaminophen 325 mg tablet 650 mg (2 x 325 mg) PO Q4HPRN PRN mild pain,headache,temp >101F #0 tabs 03/11/24
aspirin 81 mg chewable tablet 81 mg PO DAILY Blood clot prevention/tx #0 tabs 03/11/24
atorvastatin 80 mg tablet 80 mg PO QPM High cholesterol #30 tabs 03/11/24
clopidogrel 75 mg tablet 75 mg PO DAILY graft patentcy #90 tabs 03/11/24
cyclobenzaprine 10 mg tablet 5 mg (1/2 x 10 mg) PO Q8HPRN PRN muscle spasm #30 tabs 03/11/24
diltiazem HCl 180 mg capsule,extended release 24 hr 180 mg PO DAILY Arrhythmia #60 caps 03/11/24
furosemide 40 mg tablet 40 mg PO DAILY Fluid retention/Swelling #7 tabs 03/11/24
gabapentin 100 mg capsule 100 mg PO TID PRN post op pain #30 caps 03/11/24
metoprolol succinate 25 mg tablet,extended release 24 hr 25 mg PO DAILY Blood pressure #60 tabs 03/11/24
pantoprazole 40 mg tablet,delayed release 40 mg PO DAILY Gi prophylaxis while on plavix #90 tabs 03/11/24
Review of Systems
-
Constitutional: Reports No Symptoms
EENT: Reports No Symptoms
Respiratory: Reports No Symptoms
Cardiac: Reports No Symptoms
Abdomen/GI: Reports No Symptoms
: Reports No Symptoms
Musculoskeletal: Reports No Symptoms
Skin: Reports No Symptoms
Neurological: Reports No Symptoms
Endocrine: Reports No Symptoms
Hematologic/Lymphatic: Reports No Symptoms
Psych: Reports No Symptoms
Physical Exam
Vital Signs
Vital Signs
Temp Pulse Resp BP Pulse Ox
99.3 F 108 26 126/77 90
04/02/24 17:45 04/02/24 19:30 04/02/24 19:30 04/02/24 19:00 04/02/24 19:30
Physical Exam
General: Well Developed, Well Nourished and No Apparent Distress
HEENT: NormoCephalic, Moist mucous membranes and Atraumatic
Respiratory: Clear
Cardiac: S1/S2 and Regular Rhythm; No Murmur or Rub
GI: Soft, Non Tender, Non Distended and Normal Bowel Sounds; No Organomegaly
Rectal: Deferred by Provider
Musculoskeletal: No Clubbing, No Cyanosis and No Edema
Skin: No Rash
Neuro: Nonfocal/grossly intact
Laboratory Results
-
04/02/24 18:44
04/02/24 19:04
Laboratory Results
Lactic Acid 2.4 mmol/L (0.7-2.0) H 04/02/24 18:44
Total Bilirubin 0.9 mg/dl (0.2-1.3) 04/02/24 19:04
AST 27 U/L (17-59) 04/02/24 19:04
ALT 27 U/L (0-50) 04/02/24 19:04
Alkaline Phosphatase 113 U/L (38-126) 04/02/24 19:04
Troponin I < 0.012 ng/ml 04/02/24 18:44
Data Reviewed
-
CT Scan: Report Reviewed by me
Lab Data: Labs Reviewed by me
Old Records: Reviewed
Impression/Plan
-
Data
WCC 4.4
Hgb 12.5
Unremarkable CMP
NEG TPNI
Pending LA
NEG UA
NEG Covid
BCx sent
04/02/24 CTC PE study
1. No evidence of pulmonary embolism or thoracic aortic dissection.
2. Small left pleural effusion.
3. Left lower lobe airspace consolidation, which may represent pneumonia or subsegmental atelectasis.
4. Severe coronary arterial calcification. Please correlate with symptoms of and risk factors for coronary artery disease, with further workup as clinically appropriate.
EKG
SINUS TACHYCARDIA WITH 1ST DEGREE A-V BLOCK WITH PREMATURE ATRIAL COMPLEXES
INFERIOR INFARCT , AGE UNDETERMINED
ST and T WAVE ABNORMALITY, CONSIDER LATERAL ISCHEMIA
ABNORMAL ECG
WHEN COMPARED WITH ECG OF 08-MAR-2024 04:54,
PREMATURE ATRIAL COMPLEXES ARE NOW PRESENT
INFERIOR INFARCT IS NOW PRESENT
INVERTED T WAVES HAVE REPLACED NONSPECIFIC T WAVE ABNORMALITY IN LATERAL LEADS
ASSESSMENT & PLAN
Pending Rx reconciliation
LLL PNA by CTC
Associated with sepsis and chills with rigors
Associated acute hyppoxic RI
Borderline leucopenia due to sepsis
- eval for bacteremia
- BCx
- agree with septic bolus fluid
- agree with IV CFTX and PO Doxy
- Supplemental O2 to keep Pox > 94
- Trend LA, WCC
Recent CABG
- on DAPL , Metoprolol succinate
HLD
- on Atorvastatin
Benign HTN
- on Metoprolol succinate
- on Diltiazem
No prior dx of NIDDM
Mild hyperglycemia with stress
Suspect prediabetic
BPH
- on tamsulosin
DVT Px: LMWH
Full code
IP TLM
[2024-04-02 21:43] VITALS: BP 119/69
[2024-04-02 22:10] VITALS: BP 114/76; BMI 35.7
--- NOTE | 2024-04-02 22:15 | PTCARENOTE ---
Patient arrived via stretcher from the ED accompanied by spouse. Pt ambulate into the room. AAOx3, VSS. Pt 97% on 2L NC. No complaints of pain. Patient educated on plan of care and medications. Call fernandez is within reach.
[2024-04-02] MEDS: FLOMAX 0.4 MG PO (22:23)
[2024-04-02] MEDS: BENADRYL 50 MG PO (22:54)
[2024-04-02 23:23] LABS: Lactic Acid 1.4 mmol/L (0.7-2.0)
[2024-04-03 03:34] VITALS: BP 107/65
[2024-04-03 07:20] LABS: Glucose - Point of Care 99 mg/dl (70-99)
[2024-04-03 07:43] LABS: % Basophils 0.7 % (0-2); % Immature Granulocytes 0.3 % (0-0.5); % Monocytes 4.1 % (1.7-9.3); % Neutrophils 86.9 % (42.2-75.2); Absolute Basophils 0.1 10^3/uL (0-0.2); Absolute Eosinophils 0.1 10^3/uL (0-0.7); Absolute Lymphocytes 0.5 10^3/uL (1.2-3.4); Absolute Monocytes 0.3 10^3/uL (0.1-0.6); Absolute Neutrophils 6.2 10^3/uL (1.4-6.5); Hematocrit 36.8 % (39.0-52.0); Hemoglobin 12.4 g/dL (13.0-18.0); Mean Corp Hgb Conc. 33.7 g/dL (33.0-37.0); Mean Corpuscular Hgb 32.5 pg (27.0-31.0); Mean Corpuscular Volume 96.3 fL (80.0-94.0); Mean Platelet Volume 9.3 fL (7.4-10.4); Nucleated Red Blood Cells % 0 % (-); Platelet Count 159 10^3/uL (130-400); Red Blood Cell Count 3.82 10^6/uL (4.70-6.10); Red Cell Dist. Width 15.1 % (11.5-14.5); White Blood Cell Count 7.1 10^3/uL (4.8-10.8)
[2024-04-03 07:45] VITALS: BP 119/72
[2024-04-03] MEDS: PLAVIX 75 MG PO (08:26)
[2024-04-03] MEDS: LASIX 40 MG PO (08:26)
[2024-04-03] MEDS: LOW STRENGTH ASPIRIN 81 MG PO (08:26)
[2024-04-03] MEDS: PROTONIX 40 MG PO (08:26)
[2024-04-03] MEDS: TOPROL XL 25 MG PO (08:26)
[2024-04-03] MEDS: CARDIZEM CD 180 MG PO (08:26)
[2024-04-03] MEDS: VIBRAMYCIN 100 MG PO (08:26)
[2024-04-03] MEDS: ZITHROMAX INFUSION 250 IV (08:38)
[2024-04-03 08:41] LABS: Blood Urea Nitrogen 17 mg/dl (9-20); Calcium 9.2 mg/dl (8.4-10.2); Carbon Dioxide 27 mmol/L (22-30); Chloride 100 mmol/L (98-107); Estimated Creatinine Clearance 85 ml/min; Glucose 90 mg/dl (70-99); Potassium 4.1 mmol/L (3.5-5.1); Sodium 138 mmol/L (135-145); eGFR > 60.00
[2024-04-03 09:10] LABS: Glycohemoglobin (HgbA1c) 5.4 % (4.0-5.6)
--- NOTE | 2024-04-03 09:12 | CON.ID ---
Consultation
-
Date/Time Consultation Requested: 04/03/2024 0825
Date/Time Consultation Performed: 04/03/2024 0930
Requesting Provider: Dr. Santiago Parks
Performing Provider: Dr. Sharon Cabrera
Reason for Consultation: Sepsis
Chief Complaint / Past History
Chief Complaint
Shivering chills
History of Present Illness
69-year-old male with A-fib, CAD who recently underwent CABG x 3 on March 07, 2024. He was doing well postop. He walks daily as part of the cardiac rehab. Yesterday, he was unable to complete his walk. He had to sit down. He was very tired.
He was short of breathe. Later on he developed rigors. Eventually rigors resolved. However few hours later shaking chills recurred. He did not take his temperature. He was very weak. He came to the ED last evening. He was afebrile. White
count slightly low. Lactic acid normal. COVID and influenza negative. UA negative. CT of the chest shows small left pleural effusion with consolidation suggestive of pneumonia versus atelectasis. He was started on ceftriaxone and doxycycline.
Patient reports overnight he feels much improved. He was able to ambulate to the bathroom without feeling tired or short of breath. No further shaking chills. He has dry cough since postop which has not changed. No headache, sinus congestion, or
sore throat. No chest pain. No nausea vomit abdominal pain or diarrhea. No dysuria or flank pain. No rash. No ill contacts. He has not gone out. Again he feels better today.
Past History
Additional Past Medical History:
CAD s/p CABG x 3 (03/07/24)
Afib s/p MAZE procedure (03/07/24)
First degree AVB
HTN
BPH
HLD
Allergy History:
No Known Allergies Allergy (Verified 04/02/24 17:45)
Medications Reviewed: Yes
Current Antibiotics:
Azithromycin
Zosyn
Vancomycin
Social History
Tobacco: Non-Smoker
Alcohol: None
Drug: None
Personal:
Family History
Family History: Not Pertinent
Review of Systems
Review of Systems
General: Chills and Change in Appetite
HEENT: Negative Stiff Neck, Headache or Pharyngitis
Cardiovascular: Dyspnea; Negative Chest Pain
Respiratory: Dyspnea and Cough; Negative Sputum Production
Gasteroenterology: Negative Nausea, Vomiting or Diarrhea
Genital / Urological: Negative Dysuria or Flank Pain
Endocrine: Weakness
Skin / Hair / Nails: Negative Rash
Neurological: Negative Headache or Dizziness
All systems: All other systems were reviewed and were negative
Vital Signs
Temp Pulse Resp BP Pulse Ox
98.2 F 96 18 119/72 96
04/03/24 07:45 04/03/24 07:45 04/03/24 07:45 04/03/24 07:45 04/03/24 07:45
Physical Exam
Physical Exam
Constitutional: No Acute Distress, Comfortable and Obese
Head: Other (No frontal or max or sinus tenderness)
Eyes: No Conjunctival Hemorrhage and Sclera Anicteric
Cardiovascular: Regular Rate and S1/S2
Pulmonary: Coarse (Left base)
Gastrointestinal: Soft, Non Tender, Non Distended and Normal Bowel Sounds
Genito-Urinary: Negative CVA Tenderness
Extremities: Negative Edema
Wound: Other (Sternal incision site and LLE vein harvest site unremarkable, + scab)
Neurological: AO x 3
Lab / Diagnostic Study Results
04/03/24 07:30
04/03/24 07:30
Abs Immat Gran (auto) 0.0 10^3/uL (0-0.05) 04/03/24 07:30
Absolute Neuts (auto) 6.2 10^3/uL (1.4-6.5) 04/03/24 07:30
Absolute Lymphs (auto) 0.5 10^3/uL (1.2-3.4) L 04/03/24 07:30
Absolute Monos (auto) 0.3 10^3/uL (0.1-0.6) 04/03/24 07:30
Absolute Basos (auto) 0.1 10^3/uL (0-0.2) 04/03/24 07:30
Immature Gran % 0.3 % (0-0.5) 04/03/24 07:30
Neutrophils % 86.9 % (42.2-75.2) H 04/03/24 07:30
Lymphocytes % 7.0 % (20.5-51.1) L 04/03/24 07:30
Monocytes % 4.1 % (1.7-9.3) 04/03/24 07:30
Eosinophils % 1.0 % (0-6) 04/03/24 07:30
Basophils % 0.7 % (0-2) 04/03/24 07:30
Lactic Acid 1.4 mmol/L (0.7-2.0) 04/02/24 23:03
Microbiology Results
Micro:
04/02/24 20:31 Blood Culture - Pending
Blood/Venous
04/02/24 19:11 Influenza Types A & B (SJ) - Final
Nasal Swab Negative for Influenza A & B, NAAT
Negative results must be combined with clinical observations
and patient history.
Nucleic Acid Amplification test (NAAT)performed on the
[employer] platform.
04/02/24 18:44 Blood Culture - Pending
Blood/Venous
04/02/[address]: No evidence of pulmonary embolism or thoracic aortic dissection. Small left pleural effusion. Left lower lobe airspace consolidation, which may represent pneumonia or subsegmental atelectasis. Severe coronary arterial
calcification. Please correlate with symptoms of and risk factors for coronary artery disease, with further workup as clinically appropriate.
Assessment / Plan
# Suspect LLL PNA
# Rigors at home
# Recent CABG x 3 91)
- Check urine legionella and strep pneumo ag.
- Replace Zosyn w/ cefepime
- Continue Vanco for now; dc if MRSA screen neg.
# Conditions [employer]
CAD s/p CABG x 3 (03/07/24)
Afib s/p MAZE procedure (03/07/24)
First degree AVB
HTN
BPH
HLD
[2024-04-03] MEDS: STERILE WATER FOR INJECTION 10 ML IV ×3 (09:48→21:49)
[2024-04-03] MEDS: VANCOCIN 300 ML IV (09:48)
[2024-04-03] MEDS: MAXIPIME 1000 MG IV ×3 (09:48→21:50)
[2024-04-03] MEDS: VANCOCIN 300 MG IV (09:48)
--- NOTE | 2024-04-03 10:07 | W.PN.HOSP.TC ---
Today's Communication/Plan
-
IV antibiotics
-Vancomycin azithromycin Zosyn
-Procalcitonin ordered
-Follow-up culture data
-ID consulted
Wean oxygen as tolerated
Assessment / Plan
Assessment / Plan
Imaging
CTChest
IMPRESSION:
1. No evidence of pulmonary embolism or thoracic aortic dissection.
2. Small left pleural effusion.
3. Left lower lobe airspace consolidation, which may represent pneumonia or subsegmental atelectasis.
4. Severe coronary arterial calcification. Please correlate with symptoms of and risk factors for coronary artery disease, with further workup as clinically appropriate.
Physical Exam
NAD, resting comfortably in bed
Scleral anicteric
Moist mucous membranes
No JVD
CABG vertical incision line, healing well without erythema, swelling, drainage
CTA bilateral
Normal S1-S2 no murmurs
Obese, soft nontender nondistended bowel sounds active
No perpheral pitting edema
Moves extremities spontaneously
AAOx3
Assessment and Plan
Sepsis (tachypneic tachycardic, pulmonary,lactate 2)
-Follow-up sepsis bundle
-Started on doxycycline and Rocephin
-Make changes to vancomycin azithromycin and Zosyn as he was recently intubated for CABG
-Check procalcitonin
-Follow-up on respiratory and blood cultures
-ID consulted
Acute hypoxemic respiratory failure the lowest recorded O2 sat of 90%
-Wean oxygen as tolerated
-Incentive spirometer
CAD s/p CABG
-Continue DAPT, statin
-Outpatient cardiothoracic follow-up
-Continue cardiac rehab as outpatient
PSVT/AVNRT
-Continue Cardizem
Hypertension
-Continue antihypertensive
BPH
-Continue Flomax
Prediabetes
-A1c 5.9 from previous admission
-Outpatient PCP follow-up
Anticipated Discharge: 24 - 48 hours
Subjective/Interval History
-
Date of Service: April 03, 2024
seen and examined. no new complaints. no acute overnigth events
feeling much better then when he first came in
no further chills/rigors
-states he felt like he ran out of gas while walking in his garden, went into his house and started sweating
no chest pain, no sob, no coughing
recent cabg within the last 1 months, incision line healing very well
Objective Data
-
Labs:
Laboratory Results
04/03/24
07:30
WBC 7.1
Hgb 12.4 L
Hct 36.8 L
Plt Count 159
Sodium 138
Potassium 4.1
Chloride 100
Carbon Dioxide 27
BUN 17
Creatinine 1.0
Glucose 90
Calcium 9.2
Vital Signs:
Vital Signs
Temp Pulse Resp BP Pulse Ox
98.2 F 96 18 119/72 96
04/03/24 07:45 04/03/24 07:45 04/03/24 07:45 04/03/24 07:45 04/03/24 07:45
[2024-04-03 12:29] LABS: Glucose - Point of Care 105 mg/dl (70-99)
[2024-04-03] MEDS: TYLENOL 650 MG PO (12:43)
[2024-04-03 12:53] VITALS: BP 164/89
[2024-04-03 16:19] VITALS: BP 97/61
[2024-04-03] MEDS: LIPITOR 80 MG PO (17:56)
[2024-04-03] MEDS: LOVENOX 40 MG SC (17:56)
[2024-04-03 19:39] VITALS: BP 110/62
[2024-04-03 20:36] LABS: Procalcitonin 20.59 ng/ml (0.0-0.25)
[2024-04-03 21:30] LABS: Glucose - Point of Care 166 mg/dl (70-99)
--- NOTE | 2024-04-03 21:45 | PTCARENOTE ---
Patient's procal- 20.59 and +blood culture. NATACHA Rubi aware.
[2024-04-03] MEDS: FLOMAX 0.4 MG PO (21:48)
[2024-04-03] MEDS: BENADRYL 50 MG PO (21:48)
[2024-04-03 23:55] VITALS: BP 101/66
[2024-04-04] VITALS (7 sets, daily range): BP systolic 100–138; BP diastolic 66–92; O2SAT 98
[2024-04-04] MEDS: TYLENOL 650 MG PO ×3 (02:06→23:16)
[2024-04-04] MEDS: STERILE WATER FOR INJECTION 10 ML IV ×4 (03:36→22:05)
[2024-04-04] MEDS: MAXIPIME 1000 MG IV ×4 (03:36→22:05)
[2024-04-04 07:44] LABS: Glucose - Point of Care 105 mg/dl (70-99)
[2024-04-04 08:07] LABS: Hemoglobin 11.8 g/dL (13.0-18.0); Mean Corp Hgb Conc. 33.7 g/dL (33.0-37.0); Mean Corpuscular Hgb 32.4 pg (27.0-31.0); Mean Corpuscular Volume 96.2 fL (80.0-94.0); Mean Platelet Volume 9.7 fL (7.4-10.4); Platelet Count 151 10^3/uL (130-400); Red Blood Cell Count 3.64 10^6/uL (4.70-6.10); White Blood Cell Count 7.5 10^3/uL (4.8-10.8)
[2024-04-04] MEDS: PLAVIX 75 MG PO (08:24)
[2024-04-04] MEDS: CARDIZEM CD 180 MG PO (08:24)
[2024-04-04] MEDS: PROTONIX 40 MG PO (08:25)
[2024-04-04] MEDS: TOPROL XL 25 MG PO (08:25)
[2024-04-04] MEDS: LOW STRENGTH ASPIRIN 81 MG PO (08:25)
[2024-04-04 09:17] LABS: Blood Urea Nitrogen 22 mg/dl (9-20); Calcium 8.9 mg/dl (8.4-10.2); Carbon Dioxide 25 mmol/L (22-30); Chloride 97 mmol/L (98-107); Estimated Creatinine Clearance 77 ml/min; Glucose 111 mg/dl (70-99); Potassium 3.6 mmol/L (3.5-5.1); Sodium 137 mmol/L (135-145); eGFR > 60.00
[2024-04-04 11:42] LABS: Glucose - Point of Care 101 mg/dl (70-99)
[2024-04-04] MEDS: FLAGYL 500 MG PO ×2 (13:59→22:04)
--- NOTE | 2024-04-04 14:06 | W.PN.ID1 ---
Date of Service
Date of Service: April 04, 2024
Today's Communication
Add metronidazole.
DC Vancomycin.
Assessment / Plan
# Anaerobic GNR bacteremia -?source
# Possible LLL PNA
# Rigors at home
# Fever
# Recent CABG x 3 (03/07/24)
- urine legionella and strep pneumo ag neg (not sensitive tests)
- Consider CT a/p to find source of anaerobic GNR bacteremia.
Pt with recent dental cap placement - however doubt source of bacteremia.
- No objection for left thoracentesis if large enough effusion.
-Continue cefepime (d2).
-Add metronidazole 500mg po tid.
-DC Vancomycin.
-Trend temps
# Conditions [employer]
CAD s/p CABG x 3 (03/07/24)
Afib s/p MAZE procedure (03/07/24)
First degree AVB
HTN
BPH
HLD
Chief Complaint
-: Fever and Bacteremia
Subjective / Review of Systems
at bedside. Pt feeling much improved today.
Vital Signs / Physical Exam
Vital Signs
Vital Signs
Temp Pulse Resp BP Pulse Ox
98.1 F 108 18 126/82 94
04/04/24 11:12 04/04/24 11:12 04/04/24 11:12 04/04/24 11:12 04/04/24 11:12
Selected Entries
04/04/24
02:16
Temp 100.9 F H
Physical Exam
Constitutional: No Acute Distress and Comfortable
Eyes: No Conjunctival Hemorrhage and Sclera Anicteric
Cardiovascular: Regular Rate and S1/S2
Pulmonary: Other (left base decreased BS)
Gastrointestinal: Soft, Non Tender, Non Distended and Normal Bowel Sounds
Extremities: Negative Edema
Wound: Other (Sternal and RLE vein harvest site incision unremarkable)
Neurological: AO x 3
Objective Data
Lab Data
Lab Results
04/04/24 06:51
04/04/24 06:51
Estimated Creat Clear 77 ml/min 04/04/24 06:51
Lactic Acid 1.4 mmol/L (0.7-2.0) 04/02/24 23:03
Total Bilirubin 0.9 mg/dl (0.2-1.3) 04/02/24 19:04
AST 27 U/L (17-59) 04/02/24 19:04
ALT 27 U/L (0-50) 04/02/24 19:04
Alkaline Phosphatase 113 U/L (38-126) 04/02/24 19:04
Most recent labs reviewed.
Micro Results:
04/04/24 13:45 Blood Culture - Pending
Blood/Venous
04/02/24 20:31 Blood Culture - Preliminary
Blood/Venous Anaerobic gram neg bacilli
Gram Stain - Preliminary
04/02/24 18:44 Blood Culture - Preliminary
Blood/Venous No Growth in 24 hours- Final report to follow
04/03/24 12:08 Legionella Urinary Antigen - Final
Urine Negative for Legionella pneumophila Serogroup 1 antigen.
A negative result does not rule out the possiblity of
Legionella infection due to other serogroups or species of
Legionella. Clinical correlation is recommended.
Streptococcus pneumoniae Antigen (M - Final
Negative for Streptococcus pneumoniae antigen.
A negative result does not exclude infection with
Streptococcus pneumoniae. Clinical correlation is
recommended.
04/03/24 09:58 Nasal Screen MRSA (PCR) - Final
Nose MRSA not detected - performed by PCR methodology.
04/02/24 19:11 Influenza Types A & B (SJ) - Final
Nasal Swab Negative for Influenza A & B, NAAT
Negative results must be combined with clinical observations
and patient history.
Nucleic Acid Amplification test (NAAT)performed on the
[employer] platform.
04/02/[address]: No evidence of pulmonary embolism or thoracic aortic dissection. Small left pleural effusion. Left lower lobe airspace consolidation, which may represent pneumonia or subsegmental atelectasis. Severe coronary arterial
calcification. Please correlate with symptoms of and risk factors for coronary artery disease, with further workup as clinically appropriate.
Care Review
Plan reviewed with: Physician (Dr. Richard Parks)
--- NOTE | 2024-04-04 15:37 | W.PN.HOSP.TC ---
Today's Communication/Plan
-
see note
Assessment / Plan
Assessment / Plan
CT Chest
1. No evidence of pulmonary embolism or thoracic aortic dissection.
2. Small left pleural effusion.
3. Left lower lobe airspace consolidation, which may represent pneumonia or subsegmental atelectasis.
4. Severe coronary arterial calcification. Please correlate with symptoms of and risk factors for coronary artery disease, with further workup as clinically appropriate.

Sepsis - POA
Gram-negative bacteremia
Left lower lobe pneumonia versus atelectasis
-Patient continues to have mild fever episode. No leukocytosis. Pro-Marcos elevated to 20
-CT chest rule out PE. Small left lower lobe consolidation and surrounding effusion
-UA/COVID-negative. Recheck COVID again today
-Blood culture 1 set positive for gram-negative organism, further identification and susceptibility pending
-Discussed with IRAD for need of diagnostic thoracentesis on left side, may not have enough fluid to sample it.
-Will also consider abdomen imaging to r/o abd source.
-Antibiotics adjusted to cefepime and Flagyl by ID
Acute hypoxemic respiratory insufficiency
-continue wean off o2 as possible
CAD s/p CABG
-Continue DAPT, statin
-Outpatient cardiothoracic follow-up
-Continue cardiac rehab as outpatient
PSVT/AVNRT
-Continue Cardizem
Hypertension
-Continue antihypertensive
BPH
-Continue Flomax
Prediabetes
-A1c 5.9 from previous admission
-Outpatient PCP follow-up
Full code
Lovenox
Total time spent : 52 mins
Anticipated Discharge: 24 - 48 hours
Subjective/Interval History
-
Date of Service: April 04, 2024
continues to have minimal hypoxia
continues to have fever
denies chest pain
Objective Data
-
Labs:
Laboratory Results
04/04/24
06:51
WBC 7.5
Hgb 11.8 L
Hct 35.0 L
Plt Count 151
Sodium 137
Potassium 3.6
Chloride 97 L
Carbon Dioxide 25
BUN 22 H
Creatinine 1.1
Glucose 111 H
Calcium 8.9
Vital Signs:
Vital Signs
Temp Pulse Resp BP Pulse Ox
100.6 F H 108 18 126/82 94
04/04/24 14:54 04/04/24 11:12 04/04/24 11:12 04/04/24 11:12 04/04/24 11:12
I&O
04/03/24 04/04/24 04/05/24
06:59 06:59 06:59
Intake Total 0 / 0
Balance 0 / 0
Review of Systems
-
All other systems: Reviewed and negative
Physical Exam
-
General: No Apparent Distress and Comfortable
HEENT: Negative Oxygen
Respiratory: Clear to Auscultation
Cardiac: Regular Rhythm and S1/S2; Negative Murmur or Rub
GI: Soft, Nontender, Nondistended and Normal Bowel Sounds
Musculoskeletal: No Edema
Neuro: Awake, Alert, Oriented, No Motor Deficits and Nonfocal/Grossly Intact
Psych: Calm
[2024-04-04 16:25] LABS: COVID-19 Antigen Negative (Negative)
[2024-04-04 16:38] LABS: Glucose - Point of Care 174 mg/dl (70-99)
[2024-04-04] MEDS: LIPITOR 80 MG PO (17:30)
[2024-04-04] MEDS: LOVENOX 40 MG SC (17:31)
[2024-04-04 21:32] LABS: Glucose - Point of Care 120 mg/dl (70-99)
[2024-04-04] MEDS: BENADRYL 50 MG PO (22:03)
[2024-04-04] MEDS: FLOMAX 0.4 MG PO (22:04)
[2024-04-05] VITALS (7 sets, daily range): BP systolic 98–128; BP diastolic 65–76; PULSE 86; O2SAT 94
[2024-04-05] MEDS: STERILE WATER FOR INJECTION 10 ML IV ×4 (04:06→21:49)
[2024-04-05] MEDS: MAXIPIME 1000 MG IV ×4 (04:06→21:49)
[2024-04-05] MEDS: FLAGYL 500 MG PO ×3 (06:09→21:50)
[2024-04-05 07:42] LABS: Hematocrit 31.2 % (39.0-52.0); Hemoglobin 10.9 g/dL (13.0-18.0); Mean Corp Hgb Conc. 34.9 g/dL (33.0-37.0); Mean Corpuscular Hgb 31.7 pg (27.0-31.0); Mean Corpuscular Volume 90.7 fL (80.0-94.0); Mean Platelet Volume 9.5 fL (7.4-10.4); Platelet Count 150 10^3/uL (130-400); Red Blood Cell Count 3.44 10^6/uL (4.70-6.10); Red Cell Dist. Width 14.8 % (11.5-14.5); White Blood Cell Count 6.7 10^3/uL (4.8-10.8)
[2024-04-05 08:05] LABS: Blood Urea Nitrogen 20 mg/dl (9-20); Calcium 8.9 mg/dl (8.4-10.2); Carbon Dioxide 27 mmol/L (22-30); Chloride 99 mmol/L (98-107); Estimated Creatinine Clearance 94 ml/min; Glucose 110 mg/dl (70-99); Potassium 3.6 mmol/L (3.5-5.1); Sodium 137 mmol/L (135-145); eGFR > 60.00
[2024-04-05 08:11] LABS: Glucose - Point of Care 140 mg/dl (70-99)
--- NOTE | 2024-04-05 09:14 | PN.CDI ---
CDI
- -
CDI:
Physician Documentation Request
Admit Date: 04/02/24 21:11
Dear Doctor Charly
Hospitalist progress notes state 'Sepsis - POA.'
lactic acid on 04/02 2.4
Please clarify which of the following most accurately describes the status of the patient's infection:
Sepsis only
Severe Sepsis
Other
Use of terms such as suspected, likely, concern for, or probable (associated with a specific diagnosis that is being evaluated, monitored, or treated as if it exists) are acceptable and can be coded in the inpatient setting, when documented at the
time of discharge.
Thank you,
Lynne Clarke RN, BSN
CDI Specialist
tiger text
Please use your independent medical judgment in providing your response.
[2024-04-05] MEDS: LOW STRENGTH ASPIRIN 81 MG PO (10:09)
[2024-04-05] MEDS: TOPROL XL 25 MG PO (10:10)
[2024-04-05] MEDS: PLAVIX 75 MG PO (10:11)
[2024-04-05] MEDS: PROTONIX 40 MG PO (10:11)
[2024-04-05] MEDS: CARDIZEM CD 180 MG PO (10:11)
[2024-04-05] MEDS: OMNIPAQUE 50 ML PO (11:19)
[2024-04-05 12:10] LABS: Glucose - Point of Care 129 mg/dl (70-99)
--- NOTE | 2024-04-05 12:49 | W.PN.HOSP.TC ---
Today's Communication/Plan
-
see note
Assessment / Plan
Assessment / Plan
CT Chest
1. No evidence of pulmonary embolism or thoracic aortic dissection.
2. Small left pleural effusion.
3. Left lower lobe airspace consolidation, which may represent pneumonia or subsegmental atelectasis.
4. Severe coronary arterial calcification. Please correlate with symptoms of and risk factors for coronary artery disease, with further workup as clinically appropriate.

Sepsis - POA
Gram-negative bacteremia
Left lower lobe pneumonia versus atelectasis
-Patient continues to have mild fever episode. No leukocytosis. Pro-Marcos elevated to 20
-CT chest rule out PE. Small left lower lobe consolidation and surrounding effusion
-UA/COVID-negative. Recheck COVID again today
-Blood culture 1 set positive for gram-negative organism, further identification and susceptibility pending
-IRAD unable to diagnostic paracentesis as a small left effusion
-CT a/p ordered today, f/u result
-Antibiotics adjusted to cefepime and Flagyl by ID
Acute hypoxemic respiratory insufficiency -resolved
-continue wean off o2 as possible
CAD s/p CABG
-Continue DAPT, statin
-Outpatient cardiothoracic follow-up
-Continue cardiac rehab as outpatient
PSVT/AVNRT
-Continue Cardizem
Hypertension
-Continue antihypertensive
BPH
-Continue Flomax
Prediabetes
-A1c 5.9 from previous admission
-Outpatient PCP follow-up
Full code
Lovenox
Case discussed with ID
Anticipated Discharge: 24 - 48 hours
Subjective/Interval History
-
Date of Service: April 05, 2024
remains febrile
no reported other issues overnight
Objective Data
-
Labs:
Laboratory Results
04/05/24
07:25
WBC 6.7
Hgb 10.9 L
Hct 31.2 L
Plt Count 150
Sodium 137
Potassium 3.6
Chloride 99
Carbon Dioxide 27
BUN 20
Creatinine 0.9
Glucose 110 H
Calcium 8.9
Vital Signs:
Vital Signs
Temp Pulse Resp BP Pulse Ox
98.0 F 87 18 115/69 96
04/05/24 12:00 04/05/24 12:00 04/05/24 12:00 04/05/24 12:00 04/05/24 12:00
I&O
04/04/24 04/05/24 04/06/24
06:59 06:59 06:59
Intake Total 0 / 0 1040 / 1040
Balance 0 / 0 1040 / 1040
Review of Systems
-
Respiratory: Reports No Symptoms
Cardiac: Reports No Symptoms
Abdomen/GI: Reports No Symptoms
Physical Exam
-
General: No Apparent Distress and Comfortable
HEENT: Negative Oxygen
Respiratory: Clear to Auscultation
Cardiac: Regular Rhythm and S1/S2; Negative Murmur or Rub
GI: Soft, Nontender, Nondistended and Normal Bowel Sounds
Musculoskeletal: No Edema
Neuro: Awake, Alert, Oriented, No Motor Deficits and Nonfocal/Grossly Intact
Psych: Calm
--- NOTE | 2024-04-05 13:20 | W.PN.ID1 ---
Date of Service
Date of Service: April 05, 2024
Today's Communication
CT a/p
Assessment / Plan
# Anaerobic GNR bacteremia -?source
# Possible LLL PNA
# Rigors at home
# Fever - persists
# Recent CABG x 3 (03/07/24)
- left pleural effusion too small to tap
- urine legionella and strep pneumo ag neg (not sensitive tests)
- Ordered CT a/p with IV and po contrast to find source of anaerobic GNR bacteremia.
Pt with recent dental cap placement - however doubt source of bacteremia.
-Continue cefepime (d3) and metronidazole 500mg po tid (d2)
-Trend temps
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
CAD s/p CABG x 3 (03/07/24)
Afib s/p MAZE procedure (03/07/24)
First degree AVB
HTN
BPH
HLD
Chief Complaint
-: Fever and Bacteremia
Subjective / Review of Systems
Off oxygen. No complaints. Feels better. No rigors.
Vital Signs / Physical Exam
Vital Signs
Vital Signs
Temp Pulse Resp BP Pulse Ox
98.0 F 87 18 115/69 96
04/05/24 12:00 04/05/24 12:00 04/05/24 12:00 04/05/24 12:00 04/05/24 12:00
Selected Entries
04/04/24
15:30
Temp 101.2 F H
Physical Exam
Constitutional: No Acute Distress and Comfortable
Eyes: No Conjunctival Hemorrhage and Sclera Anicteric
Cardiovascular: Regular Rate and S1/S2
Pulmonary: Other (left base decreased BS)
Gastrointestinal: Soft, Non Tender, Non Distended and Normal Bowel Sounds
Extremities: Negative Edema
Wound: Other (Sternal and RLE vein harvest site incision unremarkable)
Neurological: AO x 3
Objective Data
Lab Data
Lab Results
04/05/24 07:25
04/05/24 07:25
Estimated Creat Clear 94 ml/min 04/05/24 07:25
Lactic Acid 1.4 mmol/L (0.7-2.0) 04/02/24 23:03
Total Bilirubin 0.9 mg/dl (0.2-1.3) 04/02/24 19:04
AST 27 U/L (17-59) 04/02/24 19:04
ALT 27 U/L (0-50) 04/02/24 19:04
Alkaline Phosphatase 113 U/L (38-126) 04/02/24 19:04
Most recent labs reviewed.
Micro Results:
04/02/24 20:31 Blood Culture - Preliminary
Blood/Venous Anaerobic gram neg bacilli
Gram Stain - Preliminary
04/02/24 18:44 Blood Culture - Preliminary
Blood/Venous No Growth in 48 hours- Final report to follow
04/04/24 13:45 Blood Culture - Pending
Blood/Venous
04/03/24 12:08 Legionella Urinary Antigen - Final
Urine Negative for Legionella pneumophila Serogroup 1 antigen.
A negative result does not rule out the possiblity of
Legionella infection due to other serogroups or species of
Legionella. Clinical correlation is recommended.
Streptococcus pneumoniae Antigen (M - Final
Negative for Streptococcus pneumoniae antigen.
A negative result does not exclude infection with
Streptococcus pneumoniae. Clinical correlation is
recommended.
04/03/24 09:58 Nasal Screen MRSA (PCR) - Final
Nose MRSA not detected - performed by PCR methodology.
04/02/24 19:11 Influenza Types A & B ([facility]) - Final
Nasal Swab Negative for Influenza A & B, NAAT
Negative results must be combined with clinical observations
and patient history.
Nucleic Acid Amplification test (NAAT)performed on the
[employer] platform.
04/02/[address]: No evidence of pulmonary embolism or thoracic aortic dissection. Small left pleural effusion. Left lower lobe airspace consolidation, which may represent pneumonia or subsegmental atelectasis. Severe coronary arterial
calcification. Please correlate with symptoms of and risk factors for coronary artery disease, with further workup as clinically appropriate.
Care Review
Plan reviewed with: Physician (Dr. Manas Parks)
[2024-04-05] MEDS: LOVENOX 40 MG SC (16:59)
[2024-04-05] MEDS: LIPITOR 80 MG PO (16:59)
[2024-04-05 21:06] LABS: Glucose - Point of Care 133 mg/dl (70-99)
[2024-04-05] MEDS: FLUSH (NSS) 2 FLUSH IV (21:49)
[2024-04-05] MEDS: BENADRYL 50 MG PO (21:50)
[2024-04-05] MEDS: FLOMAX 0.4 MG PO (21:50)
[2024-04-06] MEDS: MAXIPIME 1000 MG IV ×2 (03:01→10:02)
[2024-04-06] MEDS: FLUSH (NSS) 3 FLUSH IV (03:01)
[2024-04-06] MEDS: STERILE WATER FOR INJECTION 10 ML IV ×2 (03:01→10:02)
[2024-04-06 03:14] VITALS: BP 116/70
[2024-04-06] MEDS: FLAGYL 500 MG PO (05:52)
[2024-04-06 07:33] LABS: Hematocrit 31.1 % (39.0-52.0); Hemoglobin 10.5 g/dL (13.0-18.0); Mean Corp Hgb Conc. 33.8 g/dL (33.0-37.0); Mean Corpuscular Volume 91.7 fL (80.0-94.0); Mean Platelet Volume 9.4 fL (7.4-10.4); Platelet Count 156 10^3/uL (130-400); Red Blood Cell Count 3.39 10^6/uL (4.70-6.10); Red Cell Dist. Width 14.7 % (11.5-14.5); White Blood Cell Count 5.9 10^3/uL (4.8-10.8)
[2024-04-06 07:46] LABS: Glucose - Point of Care 107 mg/dl (70-99)
[2024-04-06 07:57] VITALS: BP 130/78
[2024-04-06 08:08] LABS: Blood Urea Nitrogen 18 mg/dl (9-20); Calcium 9.3 mg/dl (8.4-10.2); Carbon Dioxide 28 mmol/L (22-30); Chloride 100 mmol/L (98-107); Estimated Creatinine Clearance 94 ml/min; Glucose 104 mg/dl (70-99); Potassium 3.6 mmol/L (3.5-5.1); Sodium 138 mmol/L (135-145); eGFR > 60.00
[2024-04-06] MEDS: TOPROL XL 25 MG PO (09:08)
[2024-04-06] MEDS: PLAVIX 75 MG PO (09:08)
[2024-04-06] MEDS: LOW STRENGTH ASPIRIN 81 MG PO (09:08)
[2024-04-06] MEDS: PROTONIX 40 MG PO (09:08)
[2024-04-06] MEDS: CARDIZEM CD 180 MG PO (09:10)
--- NOTE | 2024-04-06 11:40 | W.PN.ID1 ---
Date of Service
Date of Service: April 06, 2024
Today's Communication
Need referral to GI for colonoscopy as well as work-up of pancreatic cyst.
Can transition cefepime (d4) and metronidazole 500mg po tid (d3) to Augmentin 875mg po bid through 04/17/24.
Assessment / Plan
# Anaerobic GNR bacteremia - GI source terminal ileitis
# Fever - resolved
- CT a/p with IV and po contrast: severe terminal ileitis and pancreatic cystic lesion (pseudocyst vs mucinous neoplasm)
- Patient never had colonoscopy.
Need referral to GI for colonoscopy as well as work-up of pancreatic cyst.
-Can transition cefepime (d4) and metronidazole 500mg po tid (d3) to Augmentin 875mg po bid through 04/17/24.
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
CAD s/p CABG x 3 (03/07/24)
Afib s/p MAZE procedure (03/07/24)
First degree AVB
HTN
BPH
HLD
Chief Complaint
-: Fever and Bacteremia
Subjective / Review of Systems
Feels much improved. Wants to go home.
Vital Signs / Physical Exam
Vital Signs
Vital Signs
Temp Pulse Resp BP Pulse Ox
97.7 F 84 18 130/78 98
04/06/24 07:57 04/06/24 09:08 04/06/24 07:57 04/06/24 09:08 04/06/24 07:57
Physical Exam
Constitutional: No Acute Distress and Comfortable
Gastrointestinal: Soft, Non Tender, Non Distended and Normal Bowel Sounds
Extremities: Negative Edema
Neurological: AO x 3
Objective Data
Lab Data
Lab Results
04/06/24 06:59
04/06/24 06:59
Estimated Creat Clear 94 ml/min 04/06/24 06:59
Lactic Acid 1.4 mmol/L (0.7-2.0) 04/02/24 23:03
Total Bilirubin 0.9 mg/dl (0.2-1.3) 04/02/24 19:04
AST 27 U/L (17-59) 04/02/24 19:04
ALT 27 U/L (0-50) 04/02/24 19:04
Alkaline Phosphatase 113 U/L (38-126) 04/02/24 19:04
Most recent labs reviewed.
Micro Results:
04/02/24 18:44 Blood Culture - Preliminary
Blood/Venous No Growth in 72 hours- Final report to follow
04/04/24 13:45 Blood Culture - Preliminary
Blood/Venous No Growth in 24 hours- Final report to follow
04/02/24 20:31 Blood Culture - Preliminary
Blood/Venous Anaerobic gram neg bacilli
Gram Stain - Preliminary
04/03/24 12:08 Legionella Urinary Antigen - Final
Urine Negative for Legionella pneumophila Serogroup 1 antigen.
A negative result does not rule out the possiblity of
Legionella infection due to other serogroups or species of
Legionella. Clinical correlation is recommended.
Streptococcus pneumoniae Antigen (M - Final
Negative for Streptococcus pneumoniae antigen.
A negative result does not exclude infection with
Streptococcus pneumoniae. Clinical correlation is
recommended.
04/03/24 09:58 Nasal Screen MRSA (PCR) - Final
Nose MRSA not detected - performed by PCR methodology.
04/02/24 19:11 Influenza Types A & B ([facility]) - Final
Nasal Swab Negative for Influenza A & B, NAAT
Negative results must be combined with clinical observations
and patient history.
Nucleic Acid Amplification test (NAAT)performed on the
[employer] platform.
04/02/[address]: No evidence of pulmonary embolism or thoracic aortic dissection. Small left pleural effusion. Left lower lobe airspace consolidation, which may represent pneumonia or subsegmental atelectasis. Severe coronary arterial
calcification. Please correlate with symptoms of and risk factors for coronary artery disease, with further workup as clinically appropriate.
04/05/24 CT a/p with po and IV contrast: Severe uncomplicated terminal ileitis likely of infectious/inflammatory etiology.
2. Pancreatic cystic lesion measuring up to 1.5 cm, possibly a pseudocyst or side branch intraductal papillary mucinous neoplasm. Recommend outpatient workup with dedicated MRI/MRCP abdomen without and with gadolinium contrast.
Care Review
Plan reviewed with: Physician (Dr. Jorge Parks)
[2024-04-06 11:46] LABS: Glucose - Point of Care 120 mg/dl (70-99)
[2024-04-06 11:53] VITALS: BP 120/82
--- NOTE | 2024-04-06 14:31 | CM ---
CM met with Chito at bedside to complete IA. IMM reviewed with Chito; declined to sign, so reviewed verbally. He feels ready for discharge.
Chito lives with his in a 2 story home, no steps to enter. Bed and full bath are on the 2nd floor. Powder room on the first floor.
Plan: Discharge to home with no needs.
--- NOTE | 2024-04-06 14:48 | W.PN.HOSP.TC ---
Addendum entered and electronically signed by Jorge Parks MD 04/07/24 08:30:
Sepsis only - no other clinical markers to suggest sev sepsis
Original Note:
Today's Communication/Plan
-
d/c home
Assessment / Plan
Assessment / Plan
CT Chest
1. No evidence of pulmonary embolism or thoracic aortic dissection.
2. Small left pleural effusion.
3. Left lower lobe airspace consolidation, which may represent pneumonia or subsegmental atelectasis.
4. Severe coronary arterial calcification. Please correlate with symptoms of and risk factors for coronary artery disease, with further workup as clinically appropriate.
CT A/P
1. Severe uncomplicated terminal ileitis likely of infectious/inflammatory etiology.
2. Pancreatic cystic lesion measuring up to 1.5 cm, possibly a pseudocyst or side branch intraductal papillary mucinous neoplasm. Recommend outpatient workup with dedicated MRI/MRCP abdomen without and with gadolinium contrast.

Sepsis - POA
Clostridium Clostridioforme bacteremia
Left lower lobe pneumonia versus atelectasis
-Patient continues to have mild fever episode. No leukocytosis. Pro-Marcos elevated to 20
-CT chest rule out PE. Small left lower lobe consolidation and surrounding effusion
-UA/COVID-negative.
-Blood culture positive for 1 set clostiridium species
-IRAD unable to diagnostic paracentesis as a small left effusion
-CT a/p report as above
-ID cleared patient to be discharged on Augmentin 875mg/bid till 04/17
Terminal ileitis
-noted on CT a/p
-denies of having diarrhea/weight loss h/o
-possible infectious vs inflammatory in nature
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
-Fecal calprotectin check script provided
Pancreatic cyst
-1.5 cm pseudocyst vs IPMN, pt to f/u with GI in office
Acute hypoxemic respiratory insufficiency -resolved
-continue wean off o2 as possible
CAD s/p CABG
-Continue DAPT, statin
-Outpatient cardiothoracic follow-up
-Continue cardiac rehab as outpatient
PSVT/AVNRT
-Continue Cardizem
Hypertension
-Continue antihypertensive
BPH
-Continue Flomax
Prediabetes
-A1c 5.9 from previous admission
-Outpatient PCP follow-up
Full code
Lovenox
Case discussed with ID and GI
d/c home
Anticipated Discharge: Today
Subjective/Interval History
-
Date of Service: April 06, 2024
no fever episode overnight
no new issues
Objective Data
-
Labs:
Laboratory Results
04/06/24
06:59
WBC 5.9
Hgb 10.5 L
Hct 31.1 L
Plt Count 156
Sodium 138
Potassium 3.6
Chloride 100
Carbon Dioxide 28
BUN 18
Creatinine 0.9
Glucose 104 H
Calcium 9.3
Vital Signs:
Vital Signs
Temp Pulse Resp BP Pulse Ox
97.6 F 80 18 120/82 96
04/06/24 11:53 04/06/24 11:53 04/06/24 11:53 04/06/24 11:53 04/06/24 11:53
I&O
04/05/24 04/06/24 04/07/24
06:59 06:59 06:59
Intake Total 1040 / 1040 720 / 720
Balance 1040 / 1040 720 / 720
Review of Systems
-
Respiratory: Reports No Symptoms
Cardiac: Reports No Symptoms
Abdomen/GI: Reports No Symptoms
Physical Exam
-
General: No Apparent Distress and Comfortable
HEENT: Negative Oxygen
Respiratory: Clear to Auscultation
Cardiac: Regular Rhythm and S1/S2; Negative Murmur or Rub
GI: Soft, Nontender, Nondistended and Normal Bowel Sounds
Musculoskeletal: No Edema
Neuro: Awake, Alert, Oriented, No Motor Deficits and Nonfocal/Grossly Intact
Psych: Calm
--- NOTE | 2024-04-06 16:05 | W.DCSUMMARY ---
Discharge Summary
Discharge Data
Date of Admission: 04/02/24
Date of Discharge: 04/06/24
-
Pending Results: No
Hospital Course
Discharging Physician : Dr Jorge Parks
Disposition : To home
Primary care physician : Dr Cecille Canales
Principal Discharge diagnosis :
Left lower lobe pneumonia
Terminal ileitis
Sepsis
Clostridium clostridioforme bacteremia
Pancreatic cyst
Acute hypoxic insufficiency
Chronic Discharge diagnosis :
Coronary disease with history of bypass
AV marcial reentry tachycardia
Essential hypertension
Benign prostatic hyperplasia
Prediabetes
Hospital Course :
Patient is 69-year-old male with mentioned past medical history came to ER for having new onset of chills rigors and shortness of breath. Initial evaluation in the ER suggestive of patient having left lower lobe pneumonia. A CT chest PE was done
which ruled out PE. Patient was started on empiric antibiotic. UA/COVID were checked and negative. Blood cultures were collected out of which 1 set was positive for Clostridium species organism. Patient also had left-sided likely parapneumonic
effusion which was not able to be diagnostically tapped. ID was involved in care as patient continues to have persistent fever. Follow-up CT abdomen pelvis was done to rule out any abdominal source and was incidentally found to having terminal
ileitis and 1.5 cm pancreatic cyst. Changes in ileum suspected to be likely infectious versus inflammatory in nature. Care plan for patient to follow-up with GI in office was discussed for further evaluation. After resolution of fever patient was
transition to oral Augmentin for possible pulmonary versus GI source of fever. Patient discharged home at this point.
Important imaging findings :
None
Procedure findings :
None
Discharge Plan
-
Patient Disposition: Home (Routine Discharge)
Discharge Diagnosis/Procedures: Terminal ileitis, Fever, Anaerobic organism bacteremia, Pancreatic cyst
Condition: Fair
Diet: Regular
Activity: As tolerated
Driving Restrictions: No driving
Bathing Restrictions: OK to Shower
Referrals:
Aracely Sage MD [Active] - 04/26/24 11:30 am
Cecille Canales DO [Family Provider] - in one week
Prescriptions:
New
amoxicillin-pot clavulanate 875-125 mg tablet
1 tab PO BID Qty: 24 0RF
Continued
tamsulosin 0.4 mg Capsule
0.4 mg PO HS
testosterone 20.25 mg/1.25 gram (1.62 %) gel in metered-dose pump
2 pump topical DAILY
Patient Comments:
03/02/2024: APPLY TO SHOULDER, UPPER ARMS OR ABDOMEN TRANSDERMAL ONCE A DAY
cyclobenzaprine 10 mg Tablet
5 mg PO Q8HPRN PRN (Reason: muscle spasm) Qty: 30 0RF
atorvastatin 80 mg Tablet
80 mg PO QPM Qty: 30 1RF
acetaminophen 325 mg Tablet
650 mg PO Q4HPRN PRN (Reason: mild pain,headache,temp >101F ) Qty: 0 0RF
diltiazem HCl 180 mg Capsule,Extended Release 24hr
180 mg PO DAILY Qty: 60 1RF
clopidogrel 75 mg Tablet
75 mg PO DAILY Qty: 90 3RF
aspirin 81 mg Tablet,Chewable
81 mg PO DAILY Qty: 0 0RF
pantoprazole 40 mg Tablet,Delayed Release (Dr/Ec)
40 mg PO DAILY Qty: 90 3RF
gabapentin 100 mg Capsule
100 mg PO TID PRN (Reason: post op pain) Qty: 30 0RF
metoprolol succinate 25 mg Tablet Extended Release 24 Hr
25 mg PO DAILY Qty: 60 0RF
diphenhydramine HCl [Sleep Aid (diphenhydramine)] 50 mg Capsule
50 mg PO HS
docusate sodium 50 mg Capsule
50 mg PO DAILY
Discharge Orders:
Discharge Patient (As Directed); Ordered 04/06/24
Ordered By: Jorge Parks
Discharge Date and Time
Discharge Date/Time: 04/06/24 14:15
Print Language: [place]OT[place]
== END 2024-04-06 14:15 | disposition home or self-care (01) | DRG 871 ==
LOC: 4 EAST ACU 21:11
PROVIDERS: Emergency Medicine; Hospitalist; Physician Assistant Medical; ADMITTING PHYSICIAN Internal Medicine; ATTENDING PHYSICIAN Hospitalist; CONSULT PHYSICIAN Internal Medicine Infectious Disease; EMERGENCY PHYSICIAN Student in an Organized Health Care Education/Training Program; FAMILY PHYSICIAN Family Medicine
DX: A41.89 Other specified sepsis (principal); J18.9 Pneumonia, unspecified organism; I47.19 Other supraventricular tachycardia; J98.11 Atelectasis; K50.00 Crohn's disease of small intestine without complications; J91.8 Pleural effusion in other conditions classified elsewhere; K86.2 Cyst of pancreas; E11.65 Type 2 diabetes mellitus with hyperglycemia; I10 Essential (primary) hypertension; B96.89 Other specified bacterial agents as the cause of diseases classified elsewhere; E78.00 Pure hypercholesterolemia, unspecified; I25.10 Atherosclerotic heart disease of native coronary artery without angina pectoris; Z95.1 Presence of aortocoronary bypass graft; I44.0 Atrioventricular block, first degree; I48.91 Unspecified atrial fibrillation; N40.0 Benign prostatic hyperplasia without lower urinary tract symptoms; R09.02 Hypoxemia; R06.89 Other abnormalities of breathing; Z79.899 Other long term (current) drug therapy; Z79.82 Long term (current) use of aspirin; Z79.02 Long term (current) use of antithrombotics/antiplatelets; Z11.52 Encounter for screening for COVID-19
CPT/HCPCS: 71275; 74177; 76604; 80048; 80053; 81003; 82962; 83036; 83605; 84145; 84484; 85025; 85027; 87040; 87149; 87205; 87449; 87502; 87641; 87811; 87899; 93005; 96361; 96374; 97110; 97116; 97162; 99285; Q9967

== ENCOUNTER → 2024-04-18 11:50 | Outpatient (REF) | payer MEDICARE, OTHER, SELFPAY | LOC: RAD 11:50 | PROVIDERS: ATTENDING PHYSICIAN Thoracic Surgery (Cardiothoracic Vascular Surgery); FAMILY PHYSICIAN Orthopaedic Surgery | DX: Z95.1 Presence of aortocoronary bypass graft (principal) | CPT/HCPCS: 71046 ==

== ENCOUNTER 2024-05-03 08:40 | Outpatient (RCR) | payer MEDICARE, OTHER, SELFPAY ==
[2024-04-19 10:01] LABS: Glucose - Point of Care 118 mg/dl (70-99)
[2024-04-19 10:53] LABS: Glucose - Point of Care 76 mg/dl (70-99)
[2024-04-19 11:13] LABS: Glucose - Point of Care 105 mg/dl (70-99)
== END 2024-05-03 23:59 | disposition home or self-care (01) ==
LOC: CRHB 08:40
PROVIDERS: ATTENDING PHYSICIAN Internal Medicine Cardiovascular Disease
DX: Z95.1 Presence of aortocoronary bypass graft (principal)
CPT/HCPCS: 82962; G0422; G0423

== ENCOUNTER → 2024-05-26 06:36 | Outpatient (REF) | payer MEDICARE, OTHER, SELFPAY | LOC: RAD 06:36 | PROVIDERS: ATTENDING PHYSICIAN Physician Assistant; FAMILY PHYSICIAN Family Medicine | DX: K52.9 Noninfective gastroenteritis and colitis, unspecified (principal) | CPT/HCPCS: 74177; Q9967 ==

== ENCOUNTER 2024-06-05 08:49 | Outpatient (RCR) | payer MEDICARE, OTHER, SELFPAY | END 2024-06-05 23:59 | disposition home or self-care (01) | LOC: CRHB 08:49 | PROVIDERS: ATTENDING PHYSICIAN Internal Medicine Cardiovascular Disease | DX: I25.10 Atherosclerotic heart disease of native coronary artery without angina pectoris (principal); Z95.1 Presence of aortocoronary bypass graft | CPT/HCPCS: G0422; G0423 ==

== ENCOUNTER → 2024-06-22 09:18 | Outpatient (REF) | payer MEDICARE, OTHER, SELFPAY | LOC: HWRAD 09:18 | PROVIDERS: ATTENDING PHYSICIAN Family Medicine; REFERRING PHYSICIAN Physician Assistant | DX: N28.1 Cyst of kidney, acquired (principal) | CPT/HCPCS: 76770 ==

== ENCOUNTER 2024-07-07 08:57 | Outpatient (RCR) | payer MEDICARE, OTHER, SELFPAY | END 2024-07-07 23:59 | disposition home or self-care (01) | LOC: CRHB 08:57 | PROVIDERS: ATTENDING PHYSICIAN Internal Medicine Cardiovascular Disease | DX: I25.10 Atherosclerotic heart disease of native coronary artery without angina pectoris (principal); Z95.1 Presence of aortocoronary bypass graft | CPT/HCPCS: G0422; G0423 ==

== ENCOUNTER 2024-07-28 08:00 | Outpatient (RCR) | payer MEDICARE, OTHER, SELFPAY | END 2024-07-28 23:59 | disposition home or self-care (01) | LOC: CRHB 08:00 | PROVIDERS: ATTENDING PHYSICIAN Internal Medicine Cardiovascular Disease | DX: Z95.1 Presence of aortocoronary bypass graft (principal); I25.10 Atherosclerotic heart disease of native coronary artery without angina pectoris (principal) | CPT/HCPCS: G0422; G0423 ==

== ENCOUNTER → 2025-03-22 11:00 | Outpatient (REF) | payer MEDICARE, OTHER, SELFPAY | LOC: HWRAD 11:00 | PROVIDERS: ATTENDING PHYSICIAN Internal Medicine Critical Care Medicine; FAMILY PHYSICIAN Family Medicine | DX: R05.3 Chronic cough (principal) | CPT/HCPCS: 71046 ==